=== PATIENT | male | born 1945 | race African-American/Black ===

== ENCOUNTER 2017-03-05 12:44 | Inpatient (IN) | payer MEDICARE, MEDICAID ==
[2017-03-05] VITALS (13 sets, daily range): BP systolic 125–163; BP diastolic 78–102; PULSE 100–116; RESP 16–28; TEMP 97.5–98.6; O2SAT 91–99
[~2017-03-05] VITALS: Ht 180.3 cm; Wt 80.3 kg
[~2017-03-05 12:44] MED LIST: ASPI81 PO; BRIM0.2S LEFT EYE; CALCCHW25 PO; EMTR1TAB2 PO; ERGO50000 PO; FURO10S PO; GLIP5 PO; LATA.005%O LEFT EYE; METF500 PO; METO25 PO; PROS5TAB2 PO; REME15TA PO; SIMV10 PO; SPIR25TA PO; TAMS0.4C4; VALA1TAB PO
--- NOTE | 2017-03-05 13:16 | PD ---
HPI Chief Complaint: Respiratory Symptoms Time Seen by Provider: 13:16 Travel History International Travel<30 days: No Contact w/Intl Traveler<30days: No Traveled to known affect area: No History of Present Illness HPI 71-year-old male with PMH of HTN, HLD, DM, HIV, COPD presents to the ED via EMS for evaluation of 1 week history of SOB, [place]. Patient denies fever, chills, cough, palpitations, nausea, vomiting, dysuria, lower extremity edema. He does not use oxygen at home. He states that he was seen by his PCP Dr. German this week and chest x-ray was ordered but he has not yet had it. PFSH Past Medical History Cancer: No Cardiovascular Problems: Yes (HTN) High Cholesterol: Yes Chest Pain: Yes Diabetes: Yes Patient Takes Glucophage: Yes Diminished Hearing: Yes Glaucoma: Yes Genitourinary: Yes (PROSTATE COMPLAINTS) Hepatitis: No Hiatal Hernia: No Hypertension: Yes Immune Disorder: Yes (HIV) Medical other: Yes (ARTHRITIS,BLIND OS,) Respiratory: Yes (COPD / ASTHMA) Thyroid Disease: No Influenza Vaccination: No Past Surgical History Abdominal Surgery: No Cardiac Surgery: No Ear Surgery: No Endocrine Surgery: No Eye Surgery: Yes (JAVIER.GLAUCOMA SURG.--LAST ONE LT. EYE / 2007) Genitourinary Surgery: No Gynecologic Surgery: No Neurologic Surgery: No Oral Surgery: No Pacemaker: No Thoracic Surgery: No Other Surgery: Yes (9 SCREWS IN RIGHT ANKLE) Social History Alcohol Use: No Tobacco Use: Yes Substance Use: No Allergies-Medications (Allergen,Severity, Reaction): Coded Allergies: No Known Allergies (Verified , 03/05/17) Reported Meds & Prescriptions Reported Meds & Active Scripts Active Reported Finasteride 5 Mg Tab 5 Mg PO DAILY Do not crush. Calcium 600+D (Calcium Carbonate-Cholecalciferol) 600-800 Mg-Unit Tab 1 Tab PO DAILY Tamsulosin (Tamsulosin HCl) 0.4 Mg Cap 0.8 Mg PO DAILY Take 30 minutes after the same meal every day Zocor (Simvastatin) 10 Mg Tab 10 Mg PO HS Metoprolol Tartrate 25 Mg Tab 12.5 Mg PO BID Glipizide-Metformin 2.5-500 Mg Tab 1 Tab PO BID Ecotrin Low Strength (Aspirin) 81 Mg Tabdr 81 Mg PO MOWEFR Take 1 tablet (81mg) daily on Tuesday,Tuesday and Tuesday Tramadol (Tramadol HCl) 50 Mg Tab 50 Mg PO BID Vitamin D3 (Cholecalciferol) 50,000 Unit Cap 50,000 Units PO EVERY OTHER WEEK Valacyclovir (Valacyclovir HCl) 1 Gm Tab 1 Gm PO DAILY Aldactone (Spironolactone) 25 Mg Tab 25 Mg PO DAILY Odefsey (Cmnobrzxyrqpj-Iidioxkacuq-Ohynjzlry Alafenam) 200-200-25 Mg Tab 1 Tab PO DAILY Furosemide 20 Mg Tab 20 Mg PO DAILY Review of Systems Except as stated in HPI: all other systems reviewed are Neg Physical Exam Narrative GENERAL: Well-nourished, well-developed pleasant black male, wearing 2L O2 by NC , in no acute distress. SKIN: Focused skin assessment warm/dry. HEAD: Normocephalic. EYES: No scleral icterus. No injection or drainage. NECK: Supple, trachea midline. No JVD or lymphadenopathy. CARDIOVASCULAR: Regular rate and rhythm without murmurs, gallops, or rubs. RESPIRATORY: Decreased breath sounds in all lung horton, R > L. Positive accessory muscle use. Speaking in short sentences. GASTROINTESTINAL: Abdomen soft, non-tender, nondistended. Active bowel sounds. MUSCULOSKELETAL: No cyanosis, or edema. Homans sign negative bilaterally. BACK: Nontender without obvious deformity. No CVA tenderness. Data Data Last Documented VS Vital Signs Date Time Temp Pulse Resp B/P Pulse Ox O2 Delivery O2 Flow Rate FiO2 03/05/17 15:41 107 26 138/94 93 Nasal Cannula 4 03/05/17 13:02 98.6 Orders Complete Blood Count With Diff (03/05/17 13:33) Comprehensive Metabolic Panel (03/05/17 13:33) B-Type Natriuretic Peptide (03/05/17 13:33) D-Dimer (03/05/17 13:33) Act Partial Throm Time (Ptt) (03/05/17 13:33) Prothrombin Time / Inr (Pt) (03/05/17 13:33) Magnesium (Mg) (03/05/17 13:33) Ckmb (Isoenzyme) Profile (03/05/17 13:33) Troponin I (03/05/17 13:33) Urinalysis - C+S If Indicated (03/05/17 13:33) Iv Access Insert/Monitor (03/05/17 13:33) Electrocardiogram (03/05/17 13:33) Ecg Monitoring (03/05/17 13:33) Oximetry (03/05/17 13:33) Oxygen Administration (03/05/17 13:33) Chest, Single Ap (03/05/17 13:33) Sodium Chloride 0.9% Flush (Ns Flush) (03/05/17 13:45) Sodium Chlorid 0.9% 500 Ml Inj (Ns 500 M (03/05/17 14:00) Ceftriaxone Inj (Rocephin Inj) (03/05/17 14:30) Azithromycin Inj (Zithromax Inj) (03/05/17 14:30) Blood Culture (03/05/17 14:37) Ct Pulmonary Angiogram (03/05/17 15:17) Admit Order (Ed Use Only) (03/05/17 15:49) Labs Laboratory Tests Test 03/05/17 03/05/17 13:40 14:38 White Blood Count 9.9 TH/MM3 Red Blood Count 5.58 MIL/MM3 Hemoglobin 13.6 GM/DL Hematocrit 43.6 % Mean Corpuscular Volume 78.1 FL Mean Corpuscular Hemoglobin 24.3 PG Mean Corpuscular Hemoglobin 31.1 % Concent Red Cell Distribution Width 16.7 % Platelet Count 339 TH/MM3 Mean Platelet Volume 9.6 FL Neutrophils (%) (Auto) 88.6 % Lymphocytes (%) (Auto) 5.5 % Monocytes (%) (Auto) 5.4 % Eosinophils (%) (Auto) 0.2 % Basophils (%) (Auto) 0.3 % Neutrophils # (Auto) 8.7 TH/MM3 Lymphocytes # (Auto) 0.5 TH/MM3 Monocytes # (Auto) 0.5 TH/MM3 Eosinophils # (Auto) 0.0 TH/MM3 Basophils # (Auto) 0.0 TH/MM3 CBC Comment DIFF FINAL Differential Comment Urine Color YELLOW Urine Turbidity CLEAR Urine pH 5.0 Urine Specific [place] 1.016 Urine Protein 30 mg/dL Urine Glucose (UA) NEG mg/dL Urine Ketones NEG mg/dL Urine Occult Blood TRACE Urine Nitrite NEG Urine Bilirubin NEG Urine Urobilinogen LESS THAN 2.0 MG/DL Urine Leukocyte Esterase NEG Urine RBC 1 /hpf Urine WBC 1 /hpf Urine Hyaline Casts 7 /lpf Urine Granular Casts 7 /lpf Microscopic Urinalysis Comment CULT NOT INDICATED B-Type Natriuretic Peptide 17 PG/ML Prothrombin Time 12.6 SEC Prothromb Time International 1.1 RATIO Ratio Activated Partial 25.2 SEC Thromboplast Time D-Dimer Quantitative (PE/DVT) 7.72 MG/L FEU Sodium Level 143 MEQ/L Potassium Level 4.6 MEQ/L Chloride Level 105 MEQ/L Carbon Dioxide Level 28.1 MEQ/L Anion Gap 10 MEQ/L Blood Urea Nitrogen 23 MG/DL Creatinine 1.11 MG/DL Estimat Glomerular Filtration 79 ML/MIN Rate Random Glucose 126 MG/DL Calcium Level 9.2 MG/DL Magnesium Level 2.0 MG/DL Total Bilirubin 0.7 MG/DL Aspartate Amino Transf 30 U/L (AST/SGOT) Alanine Aminotransferase 22 U/L (ALT/SGPT) Alkaline Phosphatase 118 U/L Total Creatine Kinase 81 U/L Troponin I LESS THAN 0.02 NG/ML Total Protein 7.9 GM/DL Albumin 2.7 GM/DL MDM Medical Decision Making Medical Screen Exam Complete: Yes Emergency Medical Condition: Yes Differential Diagnosis COPD exacerbation versus pneumonia versus CHF versus PE versus ACS versus other Narrative Course 71-year-old male with PMH of HTN, HLD, DM, HIV, COPD presents to the ED via EMS for evaluation of 1 week history of SOB, [place]. Patient denies fever, chills, cough, palpitations, nausea, vomiting, dysuria, lower extremity edema. He does not use oxygen at home. PCP Dr. Veras. Temp 98.6. Heart rate 112, respiratory rate 24-28, saturation 96% on 2 L NC. Physical exam reveals a pleasant plaque male, speaking in short sentences, using accessory muscles, on 3 L by nasal cannula. Breath sounds diminished in all lung horton, right greater than left. No edema in the bilateral lower legs. Patient was administered 500 mL's NS IV. CBC: WBC 9.9, 88.6% neutrophils. Hemoglobin 13.6. CMP: BUN 23, creatinine 1.11. Glucose 126. UA: No culture indicated INR: 1.1. D-dimer: 7.72. BNP:17 Cardiac enzymes: Negative 1 EKG: Rate 111, sinus tachycardia. NM 116, QRS 81, QTC 379. Normal axis. No ST changes. Reviewed by Dr. Marie CXR: Moderate right-sided pleural effusion and associated volume loss and airspace consolidation or radiology read. CTA: pending Blood cultures were obtained. Patient was administered IV Rocephin and azithromycin. PCP Dr. German. I spoke with Dr. Cabrales who agrees to accept the patient to the medical service. Please see medicine notes for disposition. Sepsis Criteria SIRS Criteria (2 or more): Heart rate over 90, RR > 20 or PaCO2 < 32 Sepsis Criteria (SIRS+source): Infect source susp/known Urmila De La Fuente March 05, 2017 13:16
[2017-03-05] MEDS ORDERED: SODIUM CHLORIDE 0.9% FLUSH 10 ML FLUSH IVF PRN (13:45)
[2017-03-05] MEDS ORDERED: SODIUM CHLORID 0.9% 500 ML INJ 500 ML IV ONE (14:00)
[2017-03-05] MEDS ORDERED: GLIP2.5T2 PO (14:06)
[2017-03-05] MEDS ORDERED: EMTR1TAB2 PO (14:06)
[2017-03-05] MEDS ORDERED: VALA1TAB PO (14:06)
[2017-03-05] MEDS ORDERED: TRAM50TA PO (14:06)
[2017-03-05] MEDS ORDERED: METO25TA3 PO (14:06)
[2017-03-05] MEDS ORDERED: CALC1TAB37 PO (14:06)
[2017-03-05] MEDS ORDERED: CHOL1CAP34 PO (14:06)
[2017-03-05] MEDS ORDERED: FURO20TA PO (14:06)
[2017-03-05] MEDS ORDERED: TAMS0.4C4 PO (14:06)
[2017-03-05] MEDS ORDERED: ASPI-147 PO (14:06)
[2017-03-05] MEDS ORDERED: SPIR25 PO (14:06)
[2017-03-05] MEDS ORDERED: ZOCO10TA PO (14:06)
[2017-03-05] MEDS ORDERED: FINA5TAB2 PO (14:06)
[2017-03-05 14:11] LABS: BLOOD, URINE TRACE (NEG); GLUCOSE,URINE NEG (NEG); GRANULAR CAST, URINE 7 /lpf; HYALINE CAST, URINE 7 /lpf (RARE); KETONE, URINE NEG (NEG); NITRITE,URINE NEG (NEG); URINE COLOR YELLOW (YELLW/STRAW)
[2017-03-05 14:12] LABS: COMMENT (UR) CULT NOT INDICATED; CULTURE IF INDICATED CULT NOT INDICATED
--- NOTE | 2017-03-05 14:13 | RADRPT ---
EXAM DATE/TIME: 03/05/2017 14:10 [facility] COMPARISON: No previous studies available for comparison. INDICATIONS : Short of breath. MEDICAL HISTORY : None. SURGICAL HISTORY : None. ENCOUNTER: Initial ACUITY: 1 day PAIN SCORE: 7/10 LOCATION: Bilateral chest FINDINGS: Portable AP view of the chest demonstrates a normal-sized cardiac silhouette. There is a moderate rig ht basilar pleural-parenchymal opacity. No pneumothorax is visualized. Bones and soft tissues demonst rate no acute finding. CONCLUSION: Moderate size right pleural effusion with associated volume loss and/or airspace consolidation. Julio Mcknight MD on March 05, 2017 at 14:11 Board Certified Radiologist. This report was verified electronically.
[2017-03-05 14:15] LABS: AUTOMATED NEUTROPHIL # 8.7 TH/MM3 (1.8-7.7); BASOPHIL % 0.3 % (0.0-2.0); EOSINOPHIL % 0.2 % (0.0-4.0); HEMATOCRIT 43.6 % (39.0-51.0); HEMO FLAGS DIFF FINAL; LYMPH % 5.5 % (9.0-44.0); LYMPHOCYTE # 0.5 TH/MM3 (1.0-4.8); MEAN CELL VOLUME 78.1 FL (80.0-100.0); MEAN CORPUSCULAR HEMOGLOBIN 24.3 PG (27.0-34.0); MEAN CORPUSCULAR HGB CONC 31.1 % (32.0-36.0); MONO % 5.4 % (0.0-8.0); NEUT % 88.6 % (16.0-70.0); PLATELET COUNT 339 TH/MM3 (150-450); RED BLOOD COUNT 5.58 MIL/MM3 (4.50-5.90); RED CELL DISTRIBUTION WIDTH 16.7 % (11.6-17.2); WHITE BLOOD COUNT 9.9 TH/MM3 (4.0-11.0)
[2017-03-05] MEDS ORDERED: AZITHROMYCIN INJ 500 MG in SODIUM CHLOR 0.9% 250 ML INJ 250 ML IV ONE (14:30)
[2017-03-05] MEDS ORDERED: cefTRIAXone INJ 1,000 MG in SODIUM CHLORIDE 0.9% INJ 100 ML IV ONE (14:30)
[2017-03-05 15:09] LABS: INTERNATIONAL NORMALIZED RATIO 1.1 RATIO; PROTHROMBIN TIME - PATIENT 12.6 SEC (9.8-11.6)
[2017-03-05 15:10] LABS: APTT (PATIENT) 25.2 SEC (24.3-30.1)
[2017-03-05 15:58] LABS: ALKALINE PHOSPHATASE 118 U/L (45-117); ALT (GPT) 22 U/L (12-78); ANION GAP 10 MEQ/L (5-15); AST (GOT) 30 U/L (15-37); BICARBONATE 28.1 MEQ/L (21.0-32.0); BLOOD UREA NITROGEN 23 MG/DL (7-18); CHLORIDE 105 MEQ/L (98-107); GLOMERULAR FILTRATION RATE 79 ML/MIN (>89); POTASSIUM 4.6 MEQ/L (3.5-5.1); SODIUM (NA) 143 MEQ/L (136-145); TOTAL BILIRUBIN ADULT 0.7 MG/DL (0.2-1.0)
[2017-03-05 16:00] LABS: CREATINE KINASE 81 U/L (39-308)
--- NOTE | 2017-03-05 16:03 | HHI.HP ---
[facility] Service [facility] Primary Care Physician Narendra German MD Admission Diagnosis pneumonia, sepsis Diagnoses: Chief Complaint: Shortness of breath Travel History International Travel<30 Days: No Contact w/Intl Traveler <30 Da: No Traveled to Known Affected Are: No History of Present Illness This is a pleasant 71 y/o male with Hypertension, Hyperlipidemia, DM II, HIV, COPD, who came to ER brought in by EMS for evaluation after one week history of SOB, [place]. Patient denies fever, chills, cough, palpitations , nausea, vomiting, dysuria, lower extremity edema. He does not use oxygen at home. He states that he was seen by his PCP Dr. German this week and chest x-ray was ordered but he has not yet had it. Seen in Emergency room, he has mild to moderate respiratory insufficiency, he is legally blind, awaiting for CTA he has moderate to severe compromise secondary to Right Pleural Effusion and may need Thoracentesis. stable eating without difficulty. he has Pulmonary Hypertension. no signs of CHF will get also a BNP. Review of Systems Respiratory: COMPLAINS OF: Shortness of breath Past Family Social History Past Medical History Hypertension Hyperlipidemia DM II Glaucoma HIV OA COPD Pulmonary hypertension BPH Legally Blind Past Surgical History Bilateral glaucoma surgery last one left eye 2007 Right Ankle surgery Reported Medications Reported Meds & Active Scripts Active Reported Finasteride 5 Mg Tab 5 Mg PO DAILY Do not crush. Calcium 600+D (Calcium Carbonate-Cholecalciferol) 600-800 Mg-Unit Tab 1 Tab PO DAILY Tamsulosin (Tamsulosin HCl) 0.4 Mg Cap 0.8 Mg PO DAILY Take 30 minutes after the same meal every day Zocor (Simvastatin) 10 Mg Tab 10 Mg PO HS Metoprolol Tartrate 25 Mg Tab 12.5 Mg PO BID Glipizide-Metformin 2.5-500 Mg Tab 1 Tab PO BID Ecotrin Low Strength (Aspirin) 81 Mg Tabdr 81 Mg PO MOWEFR Take 1 tablet (81mg) daily on Tuesday,Tuesday and Tuesday Tramadol (Tramadol HCl) 50 Mg Tab 50 Mg PO BID Vitamin D3 (Cholecalciferol) 50,000 Unit Cap 50,000 Units PO EVERY OTHER WEEK Valacyclovir (Valacyclovir HCl) 1 Gm Tab 1 Gm PO DAILY Aldactone (Spironolactone) 25 Mg Tab 25 Mg PO DAILY Odefsey (Wrzupkzrpnsth-Kzwdnidkllp-Gacrchhjp Alafenam) 200-200-25 Mg Tab 1 Tab PO DAILY Furosemide 20 Mg Tab 20 Mg PO DAILY Allergies: Coded Allergies: No Known Allergies (Verified , 03/05/17) Active Ordered Medications Current Medications Medications (Trade) Dose Ordered Sig/Keena Route Start Time Stop Time Status Last Admin (NS Flush) 2 ml UNSCH PRN IVF 03/05/17 13:45 (Ecotrin Ec) 81 mg MOWEFR PO 03/07/17 16:15 (Proscar) 5 mg DAILY PO 03/06/17 09:00 (Lasix) 20 mg DAILY PO 03/06/17 09:00 (Lopressor) 12.5 mg BID PO 03/05/17 21:00 (Aldactone) 25 mg DAILY PO 03/06/17 09:00 (Flomax) 0.8 mg DAILY PO 03/06/17 09:00 (Ultram) 50 mg BID PO 03/05/17 21:00 (Valtrex) 1,000 mg DAILY PO 03/06/17 09:00 (Pravachol) 20 mg HS PO 03/05/17 21:00 (NS Flush) 2 ml UNSCH PRN IV FLUSH 03/05/17 16:15 (NS Flush) 2 ml BID IV FLUSH 03/05/17 21:00 (Tylenol) 650 mg Q4H PRN PO 03/05/17 16:15 (Zofran Inj) 4 mg Q6H PRN IVP 03/05/17 16:15 (Narcan Inj) 0.4 mg UNSCH PRN IV 03/05/17 16:15 (Brit-Colace) 1 tab BID PO 03/05/17 21:00 (Milk Of Magnesia Liq) 30 ml Q12H PRN PO 03/05/17 16:15 (Senokot) 17.2 mg Q12H PRN PO 03/05/17 16:15 (Dulcolax Supp) 10 mg DAILY PRN RECTAL 03/05/17 16:15 (Lactulose Liq) 30 ml DAILY PRN PO 03/05/17 16:15 Guaifenesin 600 mg 600 mg BID PO 03/05/17 21:00 Ceftriaxone Sodium 1000 mg/ Sodium Chloride 100 ml @ 200 mls/hr Q24H IV 03/06/17 15:00 (Zithromax Inj/ NS 250 ml Inj) 250 ml @ 250 mls/hr Q24H IV 03/06/17 15:00 Patient Own Medication PT OWN MED: ODEFSEY(EMTRICITABINE 200MG,RILPIVIRINE... DAILY PO 03/06/17 09:00 Future Hold Family History Father and Mother with DM II Social History denies any toxic habit. Physical Exam Vital Signs Vital Signs Date Time Temp Pulse Resp B/P Pulse Ox O2 Delivery O2 Flow Rate FiO2 03/05/17 15:41 107 26 138/94 93 Nasal Cannula 4 03/05/17 14:08 109 24 127/80 95 Nasal Cannula 2.5 03/05/17 13:05 112 28 125/78 96 Nasal Cannula 2 03/05/17 13:02 98.6 112 16 125/78 94 Physical Exam GENERAL: Well-nourished, well-developed pleasant black male, wearing 2L O2 by NC , in no acute distress. SKIN: Focused skin assessment warm/dry. HEAD: Normocephalic. EYES: No scleral icterus. No injection or drainage. NECK: Supple, trachea midline. No JVD or lymphadenopathy. CARDIOVASCULAR: Regular rate and rhythm without murmurs, gallops, or rubs. RESPIRATORY: Decreased breath sounds in all lung horton, R > L. Positive accessory muscle use. Speaking in short sentences. GASTROINTESTINAL: Abdomen soft, non-tender, nondistended. Active bowel sounds. MUSCULOSKELETAL: No cyanosis, or edema. Homans sign negative bilaterally. BACK: Nontender without obvious deformity. No CVA tenderness. Laboratory Laboratory Tests Test 03/05/17 03/05/17 13:40 14:38 White Blood Count 9.9 Red Blood Count 5.58 Hemoglobin 13.6 Hematocrit 43.6 Mean Corpuscular Volume 78.1 Mean Corpuscular Hemoglobin 24.3 Mean Corpuscular Hemoglobin 31.1 Concent Red Cell Distribution Width 16.7 Platelet Count 339 Mean Platelet Volume 9.6 Neutrophils (%) (Auto) 88.6 Lymphocytes (%) (Auto) 5.5 Monocytes (%) (Auto) 5.4 Eosinophils (%) (Auto) 0.2 Basophils (%) (Auto) 0.3 Neutrophils # (Auto) 8.7 Lymphocytes # (Auto) 0.5 Monocytes # (Auto) 0.5 Eosinophils # (Auto) 0.0 Basophils # (Auto) 0.0 CBC Comment DIFF FINAL Differential Comment Urine Color YELLOW Urine Turbidity CLEAR Urine pH 5.0 Urine Specific [place] 1.016 Urine Protein 30 Urine Glucose (UA) NEG Urine Ketones NEG Urine Occult Blood TRACE Urine Nitrite NEG Urine Bilirubin NEG Urine Urobilinogen LESS THAN 2.0 Urine Leukocyte Esterase NEG Urine RBC 1 Urine WBC 1 Urine Hyaline Casts 7 Urine Granular Casts 7 Microscopic Urinalysis Comment CULT NOT INDICATED B-Type Natriuretic Peptide 17 Prothrombin Time 12.6 Prothromb Time International 1.1 Ratio Activated Partial 25.2 Thromboplast Time D-Dimer Quantitative (PE/DVT) 7.72 Result Diagram: 03/05/17 1340 Imaging Last Impressions Chest X-Ray 03/05/17 1333 Signed Impressions: Service Date/Time: Sunday, March 05, 2017 14:10 - CONCLUSION: Moderate size right pleural effusion with associated volume loss and/or airspace consolidation. Julio Mcknight MD Assessment and Plan Assessment and Plan 1. Respiratory Insufficiency secondary to COPD, Pneumonia and Pleural effusion. asked for Ultrasound guided Thoracentesis of the right Lung. 2. Sepsis/Pneumonia Ceftriaxone and Azithromycin, legionella antigen, Pneumococcal antigen follow blood culture and Sputum culture. 3. HIV by history continue Home medicines 4. Hypertension continue Home medicines. 5. DM II on hold home medicines started on sliding scale. 6. Hyperlipidemia by history 7. elevated D Dimers CTA performed awaiting for result 8. BPH continue Home medicines. DVT prophylaxis with SCDs he will have Thoracentesis, then may start anticoagulation unless positive CTA awaiting for result. Code Status Full Code. Discussed Condition With Patient and ER Physician Certification 2 Midnight Certification Type: Admission for Inpatient Services Order for Inpatient Services The services are ordered in accordance with Medicare regulations or non- Medicare payer requirements, as applicable. In the case of services not specified as inpatient-only, they are appropriately provided as inpatient services in accordance with the 2-midnight benchmark. Estimated LOS (days): 3 days is the estimated time the patient will need to remain in the hospital, assuming treatment plan goals are met and no additional complications. Post-Hospital Plan: Not yet determined Adrian Bailey MD March 05, 2017 16:03
[2017-03-05] MEDS ORDERED: ACETAMINOPHEN 325 MG TAB PO PRN (16:15)
[2017-03-05] MEDS ORDERED: BISACODYL 10 MG SUPP RECTAL PRN (16:15)
[2017-03-05] MEDS ORDERED: ONDANSETRON HCL 4 MG/2 ML VIAL IVP PRN (16:15)
[2017-03-05] MEDS ORDERED: MAGNESIUM HYDROXIDE SUSP 30 ML CUP PO PRN (16:15)
[2017-03-05] MEDS ORDERED: NALOXONE HCL 0.4 MG/ML AMP IV PRN (16:15)
[2017-03-05] MEDS ORDERED: SODIUM CHLORIDE 0.9% FLUSH 10 ML FLUSH IV FLUSH PRN (16:15)
[2017-03-05] MEDS ORDERED: LACTULOSE SYRUP 20 GM/30 ML CUP PO PRN (16:15)
[2017-03-05] MEDS ORDERED: IOHEXOL 350 MG/ML 10 ML VIAL (for RAD DIAG) IV ONE (16:44)
--- NOTE | 2017-03-05 17:19 | RADRPT ---
EXAM DATE/TIME: 03/05/2017 16:25 [facility] COMPARISON: No previous studies available for comparison. INDICATIONS : Right side chest pain and shortness of breath. IV CONTRAST: 70 cc Omnipaque 350 (iohexol) IV RADIATION DOSE: 14.75 CTDIvol (mGy) MEDICAL HISTORY : Cardiovascular disease. Chronic obstructive pulmonary disease. HIV. Hypertension, Asthma. SURGICAL HISTORY : None. ENCOUNTER: Initial ACUITY: 3 days PAIN SCALE: 6/10 LOCATION: Right upper chest TECHNIQUE: Volumetric scanning of the chest was performed using a pulmonary embolism protocol MIP images were re constructed. Using automated exposure control and adjustment of the mA and/or kV according to patien t size, radiation dose was kept as low as reasonably achievable to obtain optimal diagnostic quality images. FINDINGS: Extensive emphysematous changes are seen in both lungs. There are consolidative changes and pleural thickening on the right with a moderate right pleural effusion. The left lung is clear. There is a destructive process involving the right 6th rib in the anterior axillary line suggesting all this is due to a neoplastic process. Gynecomastia is evident. There is no evidence for a central pulmonary emboli. CONCLUSION: Abnormal right lung. Moderate effusion and consolidation is present with pleural thickening. Neopla stic process is suspected. The right rib could be biopsied percutaneously for diagnosis. Josue Gregg MD FACR on March 05, 2017 at 17:01 Board Certified Radiologist. This report was verified electronically.
[2017-03-05] MEDS: RESP: ALBUTEROL 2.5 MG/IPRATROPIUM 0.5 MG NEB (SCH) NEB ×2 (19:28→23:15)
[2017-03-05] MEDS: METOPROLOL TARTRATE 25 MG TAB PO SCH (20:13)
[2017-03-05] MEDS: PRAVASTATIN SOD 20 MG TAB PO SCH (20:13)
[2017-03-05] MEDS: guaiFENesin E.R. 600 MG TAB PO SCH (20:14)
[2017-03-05] MEDS: traMADol HCL 50 MG TAB PO SCH (20:18)
[2017-03-05] MEDS ORDERED: RESP: ALBUTEROL 2.5 MG/IPRATROPIUM 0.5 MG NEB (PRN) NEB (20:30)
[2017-03-05] MEDS ORDERED: RESP: IPRATROPIUM 0.5 MG/2.5 ML NEB NEB PRN (20:30)
[2017-03-05] MEDS ORDERED: FUROSEMIDE 40 MG/4 ML VIAL ONE (20:47)
[2017-03-05 20:51] LABS: BLOOD GAS BASE EXCESS 4.4 mmol/L (-2-2); BLOOD GAS CARBOXYHEMOGLOBIN 1.8 % (0-4); BLOOD GAS HCO3 29 mmol/L (22-26); BLOOD GAS METHEMOGLOBIN 0.7 % (0-2); BLOOD GAS O2 HGB SATURATION 95 % (90-100); BLOOD GAS OXYGEN CONTENT 17.1 Vol % (12.0-20.0); BLOOD GAS PCO2 53 mmHg (38-42); BLOOD GAS PO2 112 mmHg (61-120); BLOOD GAS TOTAL HGB 12.6 G/DL (12.0-16.0); TEMP CORR TO 98.6
[2017-03-05 20:52] LABS: CRITICAL VALUE YES; DRAW SITE RT RADIAL; LITER FLOW 15 L/M; NUMBER OF ARTERIAL PUNCTURES 1; OXYGEN DEVICE NON REBREATHER; STAT YES; ULNAR PULSE PRESENT
[2017-03-05] MEDS ORDERED: FUROSEMIDE 40 MG TAB PO ONE (21:00)
[2017-03-05] MEDS: DOCUSATE SODIUM 50 MG/SENNA 8.6 MG TAB PO SCH (21:00)
[2017-03-05] MEDS: SODIUM CHLORIDE 0.9% FLUSH 10 ML FLUSH IV FLUSH SCH (21:00)
[2017-03-05] MEDS: INSULIN NovoLIN REGULAR SUPPLEMENTAL SCALE SQ SCH (21:00)
--- NOTE | 2017-03-05 21:14 | HHI.FPPN ---
Subjective Remarks 71 year old male with a history of hypertension, hyperlipidemia, diabetes type II, HIV, COPD, and questionable CHF. He was brought in earlier today by EMS for a one week history of shortness of breath. He was found to have significant right pleural effusion, and was planning on thoracentesis tomorrow. Called for HaliCat for shortness of breath. Nurse reports that patient had O2 saturation to the low 80's. He was placed on Venturi Mask with at 50% O2 with minimal improvement. He was then placed on a non-rebreather mask and given a DuoNeb treatment. By the time of our arrival, he is on a non-rebreather mask with 99% O2 saturation. He reports "feeling great" at the time. He reports no chest pain. He has no calf tenderness or swelling. He had a CTA earlier today that showed no pulmonary embolism. Objective Vitals Vital Signs Date Time Temp Pulse Resp B/P Pulse Ox O2 Delivery O2 Flow Rate FiO2 03/05/17 20:35 98 Non-Rebreather 12.00 03/05/17 20:31 Venturi Mask 50 03/05/17 19:30 91 Nasal Cannula 4.00 03/05/17 18:13 97.5 116 22 163/96 91 03/05/17 16:39 109 24 147/92 96 Nasal Cannula 3 03/05/17 15:41 107 26 138/94 93 Nasal Cannula 4 03/05/17 14:08 109 24 127/80 95 Nasal Cannula 2.5 03/05/17 13:05 112 28 125/78 96 Nasal Cannula 2 03/05/17 13:02 98.6 112 16 125/78 94 Result Diagram: 03/05/17 1340 03/05/17 1438 Imaging General: Patient is on non-rebreather mask, minimal use of intercostal muscles to breath, speaking in complete sentences, not in acute distress, saying he feels "good" HEENT: Normocephalic, non-traumatic CV: RRR, no murmur, no rubs, no gallops Lungs: Expiratory wheezing on left side. Right side has significantly decreased breath sounds up to the right apex. The right side is dull to percussion. Mild intercostal use for breathing. Abdomen: Soft, nontender, normal bowel sounds Ext: No calf tenderness or swelling, negative Sukhdev's sign A/P Assessment and Plan 71 year old male with COPD, possible CHF, and significant right pleural effusion. HaliCat called for shortness of breath and desaturation. - Stat ABG reviewed, chronic CO2 retention that is metabolically compensated. - DuoNeb treatment - CTA reviewed from earlier today, negative for pulmonary embolism - CXR reviewed from earlier, significant right pleural effusion up to apex - CXR ordered stat, repeat CXR showing some interval improvement in the right pleural effusion. - Lasix 40 mg given now for pulmonary congestion. - Contacted primary provider, Tess Rushing for [facility] - Will transfer to the ICU for closer monitoring. - Discuss with despatching and receiving clerk. Seen and discussed with Yemi Bowman MD R2 March 05, 2017 21:14
--- NOTE | 2017-03-05 21:20 | RADRPT ---
EXAM DATE/TIME: 03/05/2017 20:49 [facility] COMPARISON: CHEST SINGLE AP, March 05, 2017, 14:10. INDICATIONS : Short of breath. MEDICAL HISTORY : Hypercholesterolemia. Hypertension. Glaucoma. Headaches. Myocardial infarction. Shortness of breath. Prostate problems. Arthritis. Urinary problems. Blind. SURGICAL HISTORY : Broken ankle with internal fixation. ENCOUNTER: Subsequent ACUITY: 1 day PAIN SCORE: 6/10 LOCATION: Bilateral chest FINDINGS: There is mild to moderate interstitial edema present. There are consolidative changes and pleural ef fusion in the right lung, stable in the interval. There is no pneumothorax. CONCLUSION: 1. Increasing interstitial edema. 2. Stable consolidative changes and fluid in the right lung. Josue Gregg MD FACR on March 05, 2017 at 21:14 Board Certified Radiologist. This report was verified electronically.
[2017-03-05 22:10] LABS: CREATINE KINASE 202 U/L (39-308)
[2017-03-05] MEDS ORDERED: CHLORHEXIDINE GLUCONATE 2 % 1 PACK (2 CLOTHS)(extra cloths) TOPICAL PRN (23:00)
[2017-03-05] MEDS ORDERED: PIPERACIL-TAZO 4.5 GM PREMIX 100 ML IV SCH (23:00)
--- NOTE | 2017-03-05 23:05 | PD.CONS ---
HPI Service Critical Care Medicine Consult Requested By Tess Graham Reason for Consult Respiratory distress Primary Care Physician Narendra German MD History of Present Illness 71-year-old very pleasant male with past history of HIV on HAART, hypertension, hyperlipidemia, diabetes, COPD (not on home O2) , chronic systolic heart failure with ejection fraction 45-50% who presented to [facility] emergency department on 03/05 with shortness of breath. He had CT pulmonary angiogram that was negative for PE but demonstrated moderate right effusion, pleural thickening with distractive process of right sixth rib. This appears to be a malignant process with post obstructive pneumonia. Yolie Last was called due to acute onset of shortness of breath with sats in the low 80s on 4 L nasal cannula. He was placed on Ventimask and subsequently on nonrebreather. He denies chest pain. He was given Lasix 40 mg IV during helical had and has diuresed 400 ML's. He states that he feels improved. He is breathing comfortably. Past Family Social History Allergies: Coded Allergies: No Known Allergies (Verified , 03/05/17) Past Medical History His physician is Narendra German HIV diagnosed 10-11 years ago on HAART Hypertension Hyperlipidemia Chronic systolic heart failure Diabetes BPH COPD patient states he is not on home O2 Patient is on valacyclovir as an outpatient but he is uncertain why Past Surgical History ORIF right ankle Reported Medications Finasteride 5 mg by mouth daily Tamsulosin 0.4 mg po daily Iegwummaxbvkj-Nbkmhrwvzgu-Pmkkevuxo Alafenam 200 1 tab po daily Metoprolol 12.5 mg by mouth twice a day Zocor 10 mg by mouth daily at bedtime Lasix 20 mg by mouth daily Spironolactone 25 mg by mouth daily Aspirin 81 mg by mouth Tuesday valacyclovir 1 g by mouth daily Tramadol 50 mg by mouth twice a day Calcium carbonate 1 tab by mouth daily Glipizide/metformin 2.5/500 one by mouth twice a day Cholecalciferol 50,000 units by mouth every other week Family History Father at age 87 he had diabetes Mother had diabetes. Social History States he lives with his 17-year-old son who is not helpful in helping to care for him "because he is always out smoking marijuana and running around" He has a [id number] history of smoking but states he quit "years ago" no alcohol use Physical Exam Vital Signs Vital Signs Date Time Temp Pulse Resp B/P Pulse Ox O2 Delivery O2 Flow Rate FiO2 03/05/17 21:42 98.3 105 20 158/91 97 03/05/17 20:35 98 Non-Rebreather 12.00 03/05/17 20:31 Venturi Mask 50 03/05/17 20:20 115 24 154/102 95 03/05/17 20:00 97.5 113 20 129/91 92 03/05/17 19:30 91 Nasal Cannula 4.00 03/05/17 18:13 97.5 116 22 163/96 91 03/05/17 16:39 109 24 147/92 96 Nasal Cannula 3 03/05/17 15:41 107 26 138/94 93 Nasal Cannula 4 03/05/17 14:08 109 24 127/80 95 Nasal Cannula 2.5 03/05/17 13:05 112 28 125/78 96 Nasal Cannula 2 03/05/17 13:02 98.6 112 16 125/78 94 Physical Exam GENERAL: Very pleasant male who is sitting [place] [facility] [place] nonrebreather. Mildly tachypneic but in no distress, very talkative. SKIN: Warm and dry, well perfused. HEAD: Atraumatic. Normocephalic. EYES: Right pupil 4 mm round and reactive, left pupil 3 mm round and reactive with cataract.. No scleral icterus. No injection or drainage. ENT: No nasal bleeding or discharge. Nonrebreather mask in place. NECK: Trachea midline. No JVD. CARDIOVASCULAR: Regular rate and rhythm. No murmurs rubs or gallops appreciated. RESPIRATORY: Tachypneic but overall appears comfortable without accessory muscle use. Diminished throughout right lung field with some rhonchi heard posteriorly right base. No wheezes or Rales. GASTROINTESTINAL: Abdomen very protuberant (patient states his baseline) but soft, nontender, nondistended. Bowel sounds very active. : Patient is holding his own urinal and voiding. MUSCULOSKELETAL: Extremities without clubbing, cyanosis, or edema. No obvious deformities. No calf tenderness. NEUROLOGICAL: Awake and alert, oriented x4 including president. No obvious cranial nerve deficits aside from pupils as per above. Strength 5 out of 5 in all extremity sensation intact. Laboratory Laboratory Tests Test 5/2703/05/17 03/05/17 03/05/17 13:40 14:38 20:47 21:11 White Blood Count 9.9 Red Blood Count 5.58 Hemoglobin 13.6 Hematocrit 43.6 Mean Corpuscular Volume 78.1 Mean Corpuscular Hemoglobin 24.3 Mean Corpuscular Hemoglobin 31.1 Concent Red Cell Distribution Width 16.7 Platelet Count 339 Mean Platelet Volume 9.6 Neutrophils (%) (Auto) 88.6 Lymphocytes (%) (Auto) 5.5 Monocytes (%) (Auto) 5.4 Eosinophils (%) (Auto) 0.2 Basophils (%) (Auto) 0.3 Neutrophils # (Auto) 8.7 Lymphocytes # (Auto) 0.5 Monocytes # (Auto) 0.5 Eosinophils # (Auto) 0.0 Basophils # (Auto) 0.0 CBC Comment DIFF FINAL Differential Comment Urine Color YELLOW Urine Turbidity CLEAR Urine pH 5.0 Urine Specific [place] 1.016 Urine Protein 30 Urine Glucose (UA) NEG Urine Ketones NEG Urine Occult Blood TRACE Urine Nitrite NEG Urine Bilirubin NEG Urine Urobilinogen LESS THAN 2.0 Urine Leukocyte Esterase NEG Urine RBC 1 Urine WBC 1 Urine Hyaline Casts 7 Urine Granular Casts 7 Microscopic Urinalysis Comment CULT NOT INDICATED B-Type Natriuretic Peptide 17 Prothrombin Time 12.6 Prothromb Time International 1.1 Ratio Activated Partial 25.2 Thromboplast Time D-Dimer Quantitative (PE/DVT) 7.72 Sodium Level 143 Potassium Level 4.6 Chloride Level 105 Carbon Dioxide Level 28.1 Anion Gap 10 Blood Urea Nitrogen 23 Creatinine 1.11 Estimat Glomerular Filtration 79 Rate Random Glucose 126 Calcium Level 9.2 Magnesium Level 2.0 Total Bilirubin 0.7 Aspartate Amino Transf 30 (AST/SGOT) Alanine Aminotransferase 22 (ALT/SGPT) Alkaline Phosphatase 118 Total Creatine Kinase 81 202 Troponin I LESS THAN 0.02 LESS THAN 0.02 Total Protein 7.9 Albumin 2.7 Blood Gas Puncture Site RT RADIAL Blood Gas Patient Temperature 98.6 Blood Gas HCO3 29 Blood Gas Base Excess 4.4 Blood Gas Oxygen Saturation 95 Arterial Blood pH 7.37 Arterial Blood Partial 53 Pressure CO2 Arterial Blood Partial 112 Pressure O2 Arterial Blood Oxygen Content 17.1 Arterial Blood 1.8 Carboxyhemoglobin Arterial Blood Methemoglobin 0.7 Blood Gas Hemoglobin 12.6 Oxygen Delivery Device NON REBREATHER Blood Gas Liter Flow 15 Date/Time Procedure Status Source Growth 03/05/17 19:00 Aerobic Blood Culture Received Blood Peripheral Pending 03/05/17 19:00 Anaerobic Blood Culture Received Blood Peripheral Pending 03/05/17 13:40 Urine Culture Received Urine Clean Catch Pending 03/05/17 13:40 Legionella Antigen Received Urine Clean Catch Pending 03/05/17 13:40 Streptococcus pneumoniae Antigen (M Received Urine Clean Catch Pending Result Diagram: 03/05/17 1340 03/05/17 1438 Assessment and Plan Assessment and Plan NEURO: Legally blind Continue Ultram 50 mg by mouth twice a day RESP: Acute hypoxia COPD Postobstructive pneumonia Right pleural effusion 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 Albuterol every 2 hours as needed. Has received diuretic with Lasix 40 mg IV and is diuresing. Adjust antibiotics as per below. Mucinex 600 mg by mouth twice a day Weaning from nonrebreather. Plan for right pigtail catheter placement and send pleural fluid studies including cytology. Consult pulmonology. Radiology feels rib lesion would be amenable to percutaneous biopsy which could be pursued when respiratory status optimized. CV: Hypertension Hyperlipidemia Chronic systolic heart failure (EF 45-50% on echo 04/24/16) Monitor hemodynamics Continue home meds of metoprolol 12.5 mg by mouth twice a day, Lasix 20 mg by mouth daily, Spironolactone 25 mg by mouth daily, aspirin 81 mg Tuesday/Tuesday /Tuesday, pravastatin 20 mg by mouth daily at bedtime. GI: 1800 ADA FEN/RENAL: BPH Patient is voiding Continue finasteride 5 mg by mouth daily Continue Flomax 0.8 mg by mouth daily ID: HIV Postobstructive pneumonia Patient continued on his own home HIV medications on admission (nonformulary) Discontinue Rocephin and azithromycin. Cover with cefepime, Flagyl, Levaquin for postobstructive pneumonia. Blood culture pending. Urine Legionella and pneumococcal antigen negative. Send sputum culture if able to obtain specimen. Plan to culture pleural fluid were obtained. UA unremarkable for evidence of infection. HEME: Monitor CBC ENDO: Diabetes mellitus Medium dose insulin sliding scale ac/hs PROPH: SCDs for DVT prophylaxis. Pharmacologic DVT prophylaxis can be added following chest tube placement. Protonix 40 mg by mouth daily for stress ulcer prophylaxis. ACCESS: Peripheral IV providing adequate access at this time. Level III consult Tiffany Finnegan MD March 05, 2017 23:04
[2017-03-05] MEDS: metroNIDAZOLE 500 MG TAB PO SCH (23:42)
[2017-03-05] MEDS: CEFEPIME INJ 2,000 MG in SODIUM CHLORIDE 0.9% INJ 100 ML IV SCH (23:42)
[2017-03-06] VITALS (20 sets, daily range): BP systolic 100–141; BP diastolic 51–95; PULSE 89–125; RESP 11–30; TEMP 98.4–99.6; O2SAT 83–98
[2017-03-06] MEDS: RESP: ALBUTEROL 2.5 MG/IPRATROPIUM 0.5 MG NEB (SCH) NEB ×6 (03:54→23:25)
[2017-03-06] MEDS: CHLORHEXIDINE GLUCONATE 2 % 1 PACK (2 CLOTHS)(taper/protocol) TOPICAL SCH (04:00)
[2017-03-06 04:38] LABS: AUTOMATED NEUTROPHIL # 8.4 TH/MM3 (1.8-7.7); BASOPHIL % 0.4 % (0.0-2.0); EOSINOPHIL % 0.2 % (0.0-4.0); HEMATOCRIT 38.2 % (39.0-51.0); HEMO FLAGS DIFF FINAL; LYMPH % 9.1 % (9.0-44.0); LYMPHOCYTE # 0.9 TH/MM3 (1.0-4.8); MEAN CELL VOLUME 78.1 FL (80.0-100.0); MEAN CORPUSCULAR HEMOGLOBIN 23.8 PG (27.0-34.0); MEAN CORPUSCULAR HGB CONC 30.5 % (32.0-36.0); MONO % 9.5 % (0.0-8.0); NEUT % 80.8 % (16.0-70.0); PLATELET COUNT 280 TH/MM3 (150-450); RED CELL DISTRIBUTION WIDTH 16.2 % (11.6-17.2); WHITE BLOOD COUNT 10.4 TH/MM3 (4.0-11.0)
[2017-03-06 04:50] LABS: INTERNATIONAL NORMALIZED RATIO 1.2 RATIO; PROTHROMBIN TIME - PATIENT 12.8 SEC (9.8-11.6)
[2017-03-06 05:05] LABS: ANION GAP 8 MEQ/L (5-15); BICARBONATE 34.1 MEQ/L (21.0-32.0); BLOOD UREA NITROGEN 24 MG/DL (7-18); CHLORIDE 101 MEQ/L (98-107); CREATINE KINASE 141 U/L (39-308); FREE T4 1.49 NG/DL (0.76-1.46); GLOMERULAR FILTRATION RATE 91 ML/MIN (>89); HDL CHOLESTEROL 41.3 MG/DL (40.0-60.0); LDL CHOLESTEROL 42 MG/DL (0-99); POTASSIUM 4.5 MEQ/L (3.5-5.1); SODIUM (NA) 143 MEQ/L (136-145)
[2017-03-06] MEDS ORDERED: ACETAMINOPHEN 325 MG TAB PO ONE (05:15)
[2017-03-06] MEDS: metroNIDAZOLE 500 MG TAB PO SCH ×3 (05:45→21:51)
[2017-03-06] MEDS: CEFEPIME INJ 2,000 MG in SODIUM CHLORIDE 0.9% INJ 100 ML IV SCH ×3 (05:46→21:52)
[2017-03-06] MEDS: INSULIN NovoLIN REGULAR SUPPLEMENTAL SCALE SQ SCH ×4 (05:46→21:00)
[2017-03-06] MEDS: LEVOFLOXACIN 750 MG TAB PO SCH (08:11)
[2017-03-06] MEDS: guaiFENesin E.R. 600 MG TAB PO SCH ×2 (08:11→21:00)
[2017-03-06] MEDS: METOPROLOL TARTRATE 25 MG TAB PO SCH ×2 (08:11→21:00)
[2017-03-06] MEDS: traMADol HCL 50 MG TAB PO SCH ×2 (08:11→21:18)
[2017-03-06] MEDS: FUROSEMIDE 20 MG TAB PO SCH (08:11)
[2017-03-06] MEDS: FINASTERIDE 5 MG TAB PO SCH (08:12)
[2017-03-06] MEDS: TAMSULOSIN HCL 0.4 MG CAP PO SCH (08:12)
[2017-03-06] MEDS: SODIUM CHLORIDE 0.9% FLUSH 10 ML FLUSH IV FLUSH SCH ×2 (08:12→21:52)
[2017-03-06] MEDS: SPIRONOLACTONE 25 MG TAB PO SCH (08:12)
[2017-03-06] MEDS: DOCUSATE SODIUM 50 MG/SENNA 8.6 MG TAB PO SCH ×2 (08:13→21:00)
--- NOTE | 2017-03-06 08:16 | HHI.CCPN ---
Subjective Remarks/Hospital Course 71-year-old male . Date of admission 03/05/2017. Date of consultation 03/05/2017. Past medical history of HIV on HAART 10 years, hypertension, hyperlipidemia, diabetes mellitus, BPH, COPD (not on home O2) , chronic systolic heart failure with ejection fraction 45-50% who presented to [facility] emergency department on 03/05 with shortness of breath. He had CT pulmonary angiogram that was negative for PE but demonstrated moderate right effusion, pleural thickening with distractive process of right sixth rib. This appears to be a malignant process with post obstructive pneumonia. Yolie Last was called due to acute onset of shortness of breath with sats in the low 80s on 4 L nasal cannula. He was placed on Ventimask and subsequently on nonrebreather. He denies chest pain. He was given Lasix 40 mg IV during helical had and has diuresed 400 ML's. He states that he feels improved. He is breathing comfortably Subjective: 03/06: Status post right pigtail catheter placement for right pleural effusion. -850 cc serosanguineous fluid removed. One chamber airleak. Follow-up chest x-ray pending. Appears more comfortable from a respiratory standpoint. Objective Vital Signs Date Time Temp Pulse Resp B/P Pulse Ox O2 Delivery O2 Flow Rate FiO2 03/06/17 07:54 94 Nasal Cannula 3.00 03/06/17 06:00 101 03/06/17 04:10 98.4 20 133/80 03/06/17 00:00 50 Intake and Output 03/05/17 03/05/17 03/06/17 08:00 16:00 00:00 Output Total 800 ml Balance -800 ml Result Diagram: 03/06/17 0330 03/06/17 0330 Other Results Microbiology Date/Time Procedure Status Source Growth 03/05/17 19:00 Aerobic Blood Culture Received Blood Peripheral Pending 03/05/17 19:00 Anaerobic Blood Culture Received Blood Peripheral Pending 03/05/17 13:40 Urine Culture Received Urine Clean Catch Pending 03/05/17 13:40 Legionella Antigen Received Urine Clean Catch Pending 03/05/17 13:40 Streptococcus pneumoniae Antigen (M Received Urine Clean Catch Pending Imaging Last Impressions CT Angiography 03/05/17 5987 Signed Impressions: Service Date/Time: Sunday, March 05, 2017 16:25 - CONCLUSION: Abnormal right lung. Moderate effusion and consolidation is present with pleural thickening. Neoplastic process is suspected. The right rib could be biopsied percutaneously for diagnosis. Josue Gregg MD FACR Chest X-Ray 03/05/17 1333 Signed Impressions: Service Date/Time: Sunday, March 05, 2017 14:10 - CONCLUSION: Moderate size right pleural effusion with associated volume loss and/or airspace consolidation. Julio Mcknight MD Objective Remarks GENERAL:71 yo male currently resting in bed in no acute distress SKIN: Warm and dry, no rash. No decubitus ulcer HEAD: Atraumatic. Normocephalic. EYES: Right pupil 4 mm round and reactive, left pupil 3 mm round and very minimally reactive with cataract.. No signs of chronic uveitis.. ENT: No signs of cerumen impaction. Oral mucosa is pink and moist. Oropharynx without erythema. No thrush NECK: Trachea midline. No JVD. Supple CARDIOVASCULAR: RRR. S1, S2 no S4 without murmur. RESPIRATORY: No accessory muscle use. Diminished throughout right lung field. Left lung is clear to auscultation anteriorly and posteriorly. Symmetrical excursion. Right-sided midaxillary chest tube with stay fix in place GASTROINTESTINAL: Abdomen very protuberant (patient states his baseline) but soft, nontender. Bowel sounds normoactive.. MUSCULOSKELETAL: Extremities without significant peripheral edema. No obvious deformities. NEUROLOGICAL: Awake and alert. No obvious cranial nerve deficits aside from pupils as per above. Strength 5 out of 5 in all 4 extremities. Normal sensation to light touch and pinprick. Gait was not assessed. 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 Incentive spirometry while awake Status post #10 Nigerien pigtail catheter placement. See procedure note. -40 CM H2O with -850 cc serosanguineous cloudy fluid removed. Follow chest x -ray pending CT chest 03/05 revealed moderate sided pleural effusion, bilateral pulse of some generalized lung changes with pulmonary thickening. Suspicious right sixth rib lesion Pleural fluid studies have been sent see orders Continue DuoNeb every 4 hours. Albuterol every 2 hours as needed for dyspnea. Has received diuretic with Lasix 40 mg IV and is diuresing. Normally on Lasix 20 mg daily and Aldactone 25 mg by mouth daily previously below Mucinex 600 mg by mouth twice a day for mucolytic Consult pulmonology. Radiology documented 6th right rib lesion amenable to percutaneous biopsy CV: Hypertension Hyperlipidemia Chronic systolic heart failure (EF 45-50% on echo 04/24/16) Pulmonary hypertension Continue home meds of metoprolol 12.5 mg by mouth twice a day for hypertension, Lasix 20 mg by mouth daily, Spironolactone 25 mg by mouth daily home medications 04/24/16 echocardiogram - ejection fraction 45-50%. Mild decrease in systolic function. No regional wall motion abnormality. RAFA 43 mmHg On Zocor 10 mg at night for dyslipidemia. Substitute for pravastatin 20 mg by mouth at bedtime at this facility Continue aspirin 81 mg Tuesday/Tuesday/Tuesday GI: 1800 ADA to be continued No indication for GI prophylaxis Brit-Colace twice a day for bowel regimen : BPH Patient is voiding without necessity of Richey catheter Continue finasteride 5 mg by mouth daily Continue Flomax 0.8 mg by mouth daily ID: HIV Postobstructive pneumonia Patient continued on his own home HIV medications on admission Odefesy 1 capsule daily Discontinue Rocephin and azithromycin. Also received 1 dose of Zosyn yesterday At the present time we'll continue cefepime, Flagyl, Levaquin for postobstructive pneumonia. Day #1 Blood culture pending. Urine Legionella and pneumococcal antigen negative. Send sputum culture if able to obtain specimen. Pleural infiltrate cultures well UA unremarkable for evidence of infection. On Valtrex 1 g daily prophylaxis HEME: Microcytic anemia Monitor CBC No signs of active bleeding. No indications for transfusion of blood products at this time. ENDO: Diabetes mellitus Holding home medication of glipizide/metformin 2.5/500 mg twice a day Medium dose insulin sliding scale ac/hs to be continued currently RENAL: Creatinine currently within normal limits Monitor urine output Accurate I's and O's FEN: Replace electrolytes as clinically indicated per electrolyte protocol MSK: Continue calcium carbonate vitamin D 600/800 units 1 tablet daily Physical therapy evaluate and treat Access - Utilize peripheral IV. Central line if indicated Prophylaxis - GI - not indicated - DVT - SCD/pharmacological prophylaxis likely to start tonight 12 hours after chest tube placement Level II Patient is stable from a critical care medicine standpoint. We will assign care back to the hospitalist in AM 03/07. Carlos Aquino MD March 06, 2017 08:16
[2017-03-06] MEDS ORDERED: LIDOCAINE HCL 1% 50 ML VIAL ONE (08:35)
[2017-03-06] MEDS ORDERED: LIDOCAINE HCL 1% PF 30 ML VIAL INFIL ONE (08:45)
[2017-03-06] MEDS ORDERED: RILPIVIRINE PO SCH (09:00)
[2017-03-06] MEDS ORDERED: RILPIVIRINE 25 MG TAB PO SCH (09:00)
[2017-03-06] MEDS ORDERED: EMTRICITABINE 200 MG CAP PO SCH (09:00)
[2017-03-06] MEDS ORDERED: TENOFOVIR ALAFENAMIDE PO SCH (09:00)
[2017-03-06] MEDS ORDERED: ODEFSEY PO SCH (09:00)
[2017-03-06] MEDS ORDERED: RESP: ALBUTEROL 2.5 MG/3 ML NEB (PRN) NEB (09:15)
[2017-03-06] MEDS ORDERED: PANTOPRAZOLE SOD 40 MG DELAYED RELEASE TAB PO SCH (09:30)
--- NOTE | 2017-03-06 09:31 | PD.PROCEDR ---
Procedure Note Procedure Date of procedure: 03/06/2017 Procedure: Right #10 Ukrainian chest tube placement Indication: Right pleural effusion with acute hypoxemic hypercapnic respiratory failure Details of procedure: Informed consent was obtained from the patient Julio Lee. The patient was laid supine. The lateral chest wall was cleaned with ChloraPrep twice. Regional sterile drapes were applied. 1% lidocaine with epinephrine was used for local anesthesia and injected into the subcutaneous and deep muscle tissues. An 18 gauge 7 cm needle was inserted in the mid axillary space by the nipple. This was directed superior to the rib with release of serosanguineous fluid. After which, a guidewire was placed in a small incision was made with scalpel blade. Using the Seldinger technique, a size10 [place] chest tube was inserted into the pleural cavity without complication.. 0-0 silk was used to close the wound and to secure the chest tube. A sterile Vaseline gauze dressing was applied. Stay fix was then applied. The chest tube was connected to a Pleur-evac drainage system via vinyl connecting tube. There was a persistent one chamber air leak. There was 850 serosanguineous output from the chest tube. Estimated blood loss: Minimal Complications: None. Stat chest x-ray pending at time of dictation. Carlos Aquino MD March 06, 2017 09:31
[2017-03-06] MEDS: valACYclovir HCL 500 MG TAB PO SCH (09:39)
[2017-03-06] MEDS ORDERED: INFLUENZA VIRUS VACCINE (QUADRIVALENT) 0.5 ML SYR IM ONE (10:00)
[2017-03-06 10:20] LABS: PLEURAL FLUID LYMPHS 25 %
--- NOTE | 2017-03-06 10:47 | RADRPT ---
EXAM DATE/TIME: 03/06/2017 10:08 [facility] COMPARISON: CHEST SINGLE AP, March 05, 2017, 20:49. INDICATIONS : Chest tube placement. MEDICAL HISTORY : Hypercholesterolemia. Hypertension. Glaucoma. Headaches. Myocardial SURGICAL HISTORY : None. ENCOUNTER: Subsequent ACUITY: 3 days PAIN SCORE: 0/10 LOCATION: Bilateral chest FINDINGS: Portable AP view of the chest demonstrates a normal-sized cardiac silhouette. There is a stable moder ate size right basilar pleural-parenchymal opacity. No pneumothorax is visualized. Chest tube overlie s the space between the patient's arm and chest wall. CONCLUSION: 1. The chest tube is not within the patient but appears to be located between the patient's arm and c hest wall. 2. Stable moderate size right pleural effusion with associated compressive atelectasis and/or consoli dation. Julio Mcknight MD on March 06, 2017 at 10:44 Board Certified Radiologist. This report was verified electronically.
--- NOTE | 2017-03-06 11:51 | PD.PROCEDR ---
Procedure Note Procedure Date of procedure: 02/26/2017 Procedure: Right-sided chest tube placement Indication: Right-sided pleural effusion/prior chest tube fell out] Details of procedure: Informed consent was obtained from the patient. The patient was laid supine. The lateral chest wall was cleaned with ChloraPrep twice. Regional sterile drapes were applied. 1% lidocaine with epinephrine was used for local anesthesia and injected into the subcutaneous and deep muscle tissues. An 18 gauge 7 cm needle was inserted in the mid axillary space by the nipple. This was directed superior to the rib with release of serosanguineous fluid. After which, a guidewire was placed in a small incision was made with scalpel blade. Using the Seldinger technique, a size10 Russian chest tube was inserted into the pleural cavity without complication.. 0-0 silk was used to close the wound and to secure the chest tube. A sterile Vaseline gauze dressing was applied. Stay fix was then applied. The chest tube was connected to a Pleur-evac drainage system via vinyl connecting tube. There was a persistent one chamber air leak. There was 850 serosanguineous output from the chest tube. Carlos Aquino MD March 06, 2017 11:51
--- NOTE | 2017-03-06 12:21 | RADRPT ---
EXAM DATE/TIME: 03/06/2017 11:49 [facility] COMPARISON: CHEST SINGLE AP, March 06, 2017, 10:08. INDICATIONS : Evaluate chest tube placement MEDICAL HISTORY : Hypercholesterolemia. Hypertension. Glaucoma. Headaches. Myocardial SURGICAL HISTORY : None. ENCOUNTER: Subsequent ACUITY: 3 days PAIN SCORE: 0/10 LOCATION: Bilateral chest FINDINGS: Portable upright expiratory view the chest demonstrates a normal-sized cardiac silhouette. Pigtail ri ght chest tube now overlies the peripheral mid right hemithorax. No pneumothorax is visualized. There is possible mild decrease size of the right pleural-parenchymal opacity. There is atelectasis at the left lung base. CONCLUSION: 1. The right-sided chest tube overlies the peripheral mid right hemithorax. No pneumothorax is visual ized. 2. The right pleural effusion appears slightly smaller in size. Julio Mcknight MD on March 06, 2017 at 12:18 Board Certified Radiologist. This report was verified electronically.
[2017-03-06 13:18] LABS: HEMOGLOBIN A1a 2.2 %; HEMOGLOBIN A1b 1.9 %; HEMOGLOBIN Ao 84.2 %; HEMOGLOBIN LA1C 1.8 %; HEMOGLOBIN P3 3.6 %
[2017-03-06] MEDS ORDERED: AZITHROMYCIN INJ 250 MG in SODIUM CHLOR 0.9% 250 ML INJ 250 ML IV SCH (15:00)
[2017-03-06] MEDS ORDERED: cefTRIAXone INJ 1,000 MG in SODIUM CHLORIDE 0.9% INJ 100 ML IV SCH (15:00)
[2017-03-06] MEDS ORDERED: MORPHINE SULFATE 4 MG/ML INJ IV PUSH ONE (15:30)
--- NOTE | 2017-03-06 16:17 | EKG ---
Date Performed: 03/05/2017 Time Performed: 13:09:18 PTAGE: 71 years EKG: SINUS TACHYCARDIA WITH SHORT AK INTERVAL NONSPECIFIC T-WAVE ABNORMALITY When compared to pr evious tracing, the previous tracing showed Changes of early repolarization, not present on thios tra cing. AK interval slightly shorter on this tracing. ABNORMAL RHYTHM ECG PREVIOUS TRACING : 06/07/2012 19.55 DOCTOR: Zach Mora Interpretating Date/Time 03/06/2017 16:16:33
[2017-03-06] MEDS ORDERED: MORPHINE SULFATE 4 MG/ML INJ IV PRN (17:00)
[2017-03-06] MEDS ORDERED: SODIUM CHLORIDE 0.9% FLUSH 10 ML FLUSH IV FLUSH PRN (17:00)
--- NOTE | 2017-03-06 17:48 | RADRPT ---
EXAM DATE/TIME: 03/06/2017 17:01 [facility] COMPARISON: CT PULMONARY ANGIOGRAM, March 05, 2017, 16:25. CHEST SINGLE AP, March 06, 2017, 11:49. INDICATIONS : Evaluate right side chest tube placement. MEDICAL HISTORY : Hypercholesterolemia. Hypertension. Glaucoma. Headaches. Myocardial SURGICAL HISTORY : None. ENCOUNTER: Subsequent ACUITY: 1 day PAIN SCORE: 0/10 LOCATION: Bilateral chest FINDINGS: Right basilar patchiness is noted consistent with atelectasis and/or pneumonia. Clinical correlation is recommended. A small right pleural effusion is noted. Right-sided chest tube is stable. No pne umothorax is noted. There is a focal lucency involving the right scapula consistent with probable ly tic metastasis. CONCLUSION: 1. Right basilar patchiness consistent with atelectasis and/or pneumonia. 2. Small right pleural effusion. 3. 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 Kwadwo Hummel MD on March 06, 2017 at 17:42 Board Certified Radiologist. This report was verified electronically.
--- NOTE | 2017-03-06 18:48 | MB ---
cc: ALEKS WOODS DATE OF CONSULTATION: 03/06/2017. REASON FOR CONSULTATION: Pleural effusion. REQUESTING PHYSICIAN: Dr. Aquino. HISTORY OF PRESENT ILLNESS: Mr. Lee is a 71-year-old -[place] male with history of HIV disease. He is on HAART treatment. He follows with Dr. Narendra German. He also has a history of congestive heart failure and COPD. He came to the hospital with complaint of shortness of breath going on for at least one week or so. He did not have any fever or chills. No night sweats. No chest pain. No nausea or vomiting. The patient was evaluated in the hospital. He had a CTA of the chest done and it did not show any pulmonary embolus, moderate effusion and consolidation in the right lung and he also had a right rib destruction. He had a chest tube placed and about a total of 900 cc of fluid was removed. The pleural fluid has been sent for cytology. He does not have any cough or sputum production. No fever or chills. PAST MEDICAL HISTORY: His past medical history is significant for: 1. History of COPD. 2. Hypertension. 3. HIV disease. 4. Hyperlipidemia. 5. Congestive heart failure. 6. Diabetes mellitus. MEDICATIONS: He is takin. Aspirin 81 milligrams a day. 2. Morphine 2 milligrams PRN. 3. Albuterol nebulizer treatment. 4. Finasteride 5 milligrams a day. 5. Lasix 20 milligrams a day. 6. Aldactone 25 milligrams a day. 7. Flomax 0.8 milligrams a day. 8. Valcyte 1000 milligrams daily. 9. Flomax 0.8 milligrams a day. 10. Levaquin 750 milligrams a day. 11. Cefepime 2 grams q. 8 hours. 12. Metoprolol 12.5 milligrams twice a day. 13. Tramadol for pain. 14. Pravastatin 20 milligrams a day. ALLERGIES: NO KNOWN DRUG ALLERGIES. SOCIAL HISTORY: He was before now he lives alone. He used to work multiple jobs. Had a history of smoking, alcohol and drug use. He used crack cocaine. He denies any IV drug abuse. FAMILY HISTORY: He has four children, two of them are in long term. REVIEW OF SYSTEMS: He denies any weight loss. No hemoptysis. No DVT or pulmonary embolism. No seizure, stroke or epilepsy. PHYSICAL EXAMINATION: GENERAL: An elderly male not in any acute distress. VITAL SIGNS: Blood pressure 107/69, heart rate 101, respirations 20, temperature 98. HEAD, EYES, EARS, NOSE, THROAT: Pupils are equal and reactive to light. Oral mucosa and nasal mucosa are normal. NECK: The neck is supple. JVP not raised. CHEST: He has decreased breath sounds at the right chest. CARDIOVASCULAR: S1 and S2 normal. ABDOMEN: Abdomen soft, mildly distended, nontender. Bowel sounds are present. EXTREMITIES: No edema. IMPRESSION: 1. Right pleural effusion. 2. Destruction of the right fifth rib, need to rule out possible malignancy. 3. HIV disease. 4. Congestive heart failure. 5. Hypertension. 6. COPD. PLAN: I discussed with the patient will check his pleural fluid results. If the pleural fluid cytology is negative, will consider CT-guided rib biopsy to make the diagnosis for cancer. Continue his antibiotic aerosol treatment. Supplement his oxygen. Further treatment will depend on the course in the hospital. Thank you, Dr. Aquino, for this consult. MD JATINDER Lerma/RENETTA /6:31 PM /6:36 PM MTDEmir
[2017-03-06] MEDS: PRAVASTATIN SOD 20 MG TAB PO SCH (21:00)
--- NOTE | 2017-03-06 22:02 | RADRPT ---
EXAM DATE/TIME: 03/06/2017 21:08 [facility] COMPARISON: CHEST SINGLE AP, March 06, 2017, 17:01. INDICATIONS : Chest tube placement. MEDICAL HISTORY : Hypercholesterolemia. Hypertension. Glaucoma. Headaches. Myocardial. SURGICAL HISTORY : None. ENCOUNTER: Subsequent ACUITY: 1 week PAIN SCORE: 0/10 LOCATION: Bilateral chest FINDINGS: There is persistent right basilar patchiness which is stable. Small right pleural effusion is also s table. The right chest tube has been removed. No recurrent pneumothorax is noted. The left lung is clear. Lytic lesion is again noted within the right scapula consistent with probable metastatic dis ease. CONCLUSION: 1. No pneumothorax status post removal of right chest tube. 2. Right basilar patchiness consistent with probable pneumonia and/or atelectasis. 3. Small right pleural effusion. 4. Stable lytic lesion within the right scapula consistent with probable metastatic disease. Kwadwo Hummel MD on March 06, 2017 at 21:55 Board Certified Radiologist. This report was verified electronically.
[2017-03-07] VITALS (22 sets, daily range): BP systolic 106–137; BP diastolic 72–97; PULSE 21–118; RESP 14–25; TEMP 96.4–99.2; O2SAT 91–96
[2017-03-07 03:01] LABS: TOTAL PROTEIN,PLEURAL FLUID 5.5 GM/DL
[2017-03-07] MEDS: RESP: ALBUTEROL 2.5 MG/IPRATROPIUM 0.5 MG NEB (SCH) NEB ×5 (03:09→21:36)
[2017-03-07] MEDS: CHLORHEXIDINE GLUCONATE 2 % 1 PACK (2 CLOTHS)(taper/protocol) TOPICAL SCH (04:00)
[2017-03-07] MEDS: metroNIDAZOLE 500 MG TAB PO SCH ×3 (05:07→22:02)
[2017-03-07 06:10] LABS: AUTOMATED NEUTROPHIL # 8.2 TH/MM3 (1.8-7.7); BASOPHIL % 0.1 % (0.0-2.0); EOSINOPHIL # 0.1 TH/MM3 (0-0.4); EOSINOPHIL % 0.7 % (0.0-4.0); HEMATOCRIT 44.4 % (39.0-51.0); HEMO FLAGS DIFF FINAL; LYMPHOCYTE # 0.8 TH/MM3 (1.0-4.8); MEAN CELL VOLUME 78.7 FL (80.0-100.0); MEAN CORPUSCULAR HEMOGLOBIN 23.6 PG (27.0-34.0); MONO % 7.6 % (0.0-8.0); NEUT % 83.6 % (16.0-70.0); PLATELET COUNT 272 TH/MM3 (150-450); RED BLOOD COUNT 5.64 MIL/MM3 (4.50-5.90); RED CELL DISTRIBUTION WIDTH 16.2 % (11.6-17.2); WHITE BLOOD COUNT 9.8 TH/MM3 (4.0-11.0)
[2017-03-07 06:22] LABS: ALT (GPT) 23 U/L (12-78); ANION GAP 11 MEQ/L (5-15); AST (GOT) 28 U/L (15-37); BICARBONATE 28.5 MEQ/L (21.0-32.0); BLOOD UREA NITROGEN 22 MG/DL (7-18); CHLORIDE 100 MEQ/L (98-107); GLOMERULAR FILTRATION RATE 97 ML/MIN (>89); MAGNESIUM 2.3 MG/DL (1.5-2.5); SODIUM (NA) 139 MEQ/L (136-145)
[2017-03-07 06:25] LABS: ALKALINE PHOSPHATASE 118 U/L (45-117); TOTAL BILIRUBIN ADULT 1.1 MG/DL (0.2-1.0)
[2017-03-07] MEDS: CEFEPIME INJ 2,000 MG in SODIUM CHLORIDE 0.9% INJ 100 ML IV SCH ×3 (06:48→22:44)
[2017-03-07] MEDS: INSULIN NovoLIN REGULAR SUPPLEMENTAL SCALE SQ SCH ×4 (06:48→21:00)
--- NOTE | 2017-03-07 06:54 | RADRPT ---
EXAM DATE/TIME: 03/07/2017 05:25 [facility] COMPARISON: CHEST SINGLE AP, March 06, 2017, 21:08. INDICATIONS : Pneumothorax. MEDICAL HISTORY : None. SURGICAL HISTORY : None. ENCOUNTER: Subsequent ACUITY: 3 days PAIN SCORE: Non-responsive. LOCATION: Bilateral chest FINDINGS: Right base infiltrate effusion are unchanged. Left lung remains grossly clear. Visualized cardiac con tours are stable. CONCLUSION: No significant change Julio Pillai MD on March 07, 2017 at 6:51 Board Certified Radiologist. This report was verified electronically.
[2017-03-07] MEDS: valACYclovir HCL 500 MG TAB PO SCH (10:03)
[2017-03-07] MEDS: LEVOFLOXACIN 750 MG TAB PO SCH (10:03)
[2017-03-07] MEDS: FUROSEMIDE 20 MG TAB PO SCH (10:04)
[2017-03-07] MEDS: guaiFENesin E.R. 600 MG TAB PO SCH ×2 (10:04→22:02)
[2017-03-07] MEDS: DOCUSATE SODIUM 50 MG/SENNA 8.6 MG TAB PO SCH ×2 (10:04→22:02)
[2017-03-07] MEDS: TAMSULOSIN HCL 0.4 MG CAP PO SCH (10:04)
[2017-03-07] MEDS: SPIRONOLACTONE 25 MG TAB PO SCH (10:04)
[2017-03-07] MEDS: METOPROLOL TARTRATE 25 MG TAB PO SCH ×2 (10:05→22:02)
[2017-03-07] MEDS: traMADol HCL 50 MG TAB PO SCH ×2 (10:05→22:02)
[2017-03-07] MEDS: SODIUM CHLORIDE 0.9% FLUSH 10 ML FLUSH IV FLUSH SCH ×2 (10:05→22:02)
[2017-03-07] MEDS: FINASTERIDE 5 MG TAB PO SCH (10:05)
--- NOTE | 2017-03-07 13:01 | HHI.PR ---
Subjective Remarks inventory specialist Notes: 71-year-old male . Date of admission 03/05/2017. Date of consultation 03/05/2017. Past medical history of HIV on HAART 10 years, hypertension, hyperlipidemia, diabetes mellitus, BPH, COPD (not on home O2) , chronic systolic heart failure with ejection fraction 45-50% who presented to [facility] emergency department on 03/05 with shortness of breath. He had CT pulmonary angiogram that was negative for PE but demonstrated moderate right effusion, pleural thickening with distractive process of right sixth rib. This appears to be a malignant process with post obstructive pneumonia. 03/06: Status post right pigtail catheter placement for right pleural effusion. -850 cc serosanguineous fluid removed. One chamber airleak. Follow-up chest x-ray pending. Appears more comfortable from a respiratory standpoint. Hospitalist Notes: 03/07: Seen in his bedroom, he is talking through the phone, no complaint, no nausea, vomit or diarrhea. Objective Vital Signs Date Time Temp Pulse Resp B/P Pulse Ox O2 Delivery O2 Flow Rate FiO2 03/07/17 11:05 18 03/07/17 08:15 95 Nasal Cannula 4.00 03/07/17 06:00 102 15 137/94 94 03/07/17 06:00 102 03/07/17 05:06 102 25 113/78 95 03/07/17 05:00 101 20 92 03/07/17 04:00 98 03/07/17 04:00 95 Nasal Cannula 4.00 03/07/17 04:00 98.8 98 22 108/72 95 03/07/17 03:00 93 14 131/97 93 03/07/17 02:00 95 03/07/17 02:00 95 20 136/97 93 03/07/17 01:00 91 19 113/80 03/07/17 00:00 88 18 106/78 95 03/07/17 00:00 95 Nasal Cannula 4.00 03/07/17 00:00 88 03/07/17 00:00 99.2 88 22 106/78 95 03/06/17 23:00 90 28 121/77 94 03/06/17 22:00 101 03/06/17 22:00 101 24 96 03/06/17 21:00 125 23 119/75 92 03/06/17 20:07 92 Nasal Cannula 4.00 03/06/17 20:00 89 Nasal Cannula 4.00 03/06/17 20:00 119 03/06/17 20:00 98.8 119 30 120/76 89 03/06/17 18:00 99.6 104 26 120/74 92 03/06/17 18:00 104 03/06/17 17:43 18 03/06/17 16:06 18 03/06/17 16:00 98 Nasal Cannula 3.00 03/06/17 16:00 109 03/06/17 14:00 113 03/06/17 14:00 113 25 83 03/06/17 13:00 101 26 107/69 91 03/06/17 13:00 101 26 107/69 91 I/O 03/06/17 03/06/17 03/06/17 03/07/17 03/07/17 03/07/17 07:00 15:00 23:00 07:00 15:00 23:00 Intake Total 440 ml 240 ml 713 ml 300 ml Output Total 350 ml 950 ml 325 ml 225 ml Balance 90 ml -710 ml 388 ml 75 ml Intake Oral 240 ml 240 ml 500 ml 300 ml IV Total 200 ml 213 ml 0 ml Output Urine Total 350 ml 950 ml 325 ml 225 ml # Bowel Movements 0 0 Result Diagram: 03/07/17 0506 03/07/17 0506 Imaging Last Impressions Chest X-Ray 03/07/17 0600 Signed Impressions: Service Date/Time: Tuesday, March 07, 2017 05:25 - CONCLUSION: No significant change Julio Pillai MD CT Angiography 03/05/17 1517 Signed Impressions: Service Date/Time: Sunday, March 05, 2017 16:25 - CONCLUSION: Abnormal right lung. Moderate effusion and consolidation is present with pleural thickening. Neoplastic process is suspected. The right rib could be biopsied percutaneously for diagnosis. Josue Gregg MD FACR Procedures Right Chest Tube placement Other Results Laboratory Tests Test 03/05/17 03/05/17 03/05/17 03/05/17 13:40 14:38 20:47 21:30 Urine Color YELLOW Urine Turbidity CLEAR Urine pH 5.0 Urine Specific [place] 1.016 Urine Protein 30 mg/dL Urine Glucose (UA) NEG mg/dL Urine Ketones NEG mg/dL Urine Occult Blood TRACE Urine Nitrite NEG Urine Bilirubin NEG Urine Urobilinogen LESS THAN 2.0 MG/DL Urine Leukocyte Esterase NEG Urine RBC 1 /hpf Urine WBC 1 /hpf Urine Hyaline Casts 7 /lpf Urine Granular Casts 7 /lpf Microscopic Urinalysis Comment CULT NOT INDICATED B-Type Natriuretic Peptide 17 PG/ML Activated Partial 25.2 SEC Thromboplast Time D-Dimer Quantitative (PE/DVT) 7.72 MG/L FEU Blood Gas Puncture Site RT RADIAL Blood Gas Patient Temperature 98.6 Blood Gas HCO3 29 mmol/L Blood Gas Base Excess 4.4 mmol/L Blood Gas Oxygen Saturation 95 % Arterial Blood pH 7.37 Arterial Blood Partial 53 mmHg Pressure CO2 Arterial Blood Partial 112 mmHg Pressure O2 Arterial Blood Oxygen Content 17.1 Vol % Arterial Blood 1.8 % Carboxyhemoglobin Arterial Blood Methemoglobin 0.7 % Blood Gas Hemoglobin 12.6 G/DL Oxygen Delivery Device NON REBREATHER Blood Gas Liter Flow 15 L/M Nasal Screen MRSA (PCR) MRSA NOT DETECTED Test 03/06/17 03/06/17 03/07/17 03:30 09:10 05:06 Prothrombin Time 12.8 SEC Prothromb Time International 1.2 RATIO Ratio Hemoglobin A1c 6.1 % Total Creatine Kinase 141 U/L Troponin I LESS THAN 0.02 NG/ML Triglycerides Level 87 MG/DL Cholesterol Level 101 MG/DL LDL Cholesterol 42 MG/DL HDL Cholesterol 41.3 MG/DL Cholesterol/HDL Ratio 2.44 RATIO Free Thyroxine 1.49 NG/DL Thyroid Stimulating Hormone 0.873 uIU/ML 3rd Gen Pleural Fluid pH 8.0 Pleural Fluid WBC 1435 /MM3 Pleural Fluid RBC 80957 /MM3 Pleural Fluid Neutrophils 40 % Pleural Fluid Lymphocytes 25 % Pleural Fluid Monocytes 3 % Pleural Fluid Eosinophils 2 % Pleural Fluid Histiocytes 17 % Pleural Fluid Mesothelial 3 % Cells Pleural Fluid Other Cells 10 % Pleural Fluid Total Protein 5.5 GM/DL Pleural Fluid LDH 343 U/L Pleural Fluid Glucose 112 MG/DL White Blood Count 9.8 TH/MM3 Red Blood Count 5.64 MIL/MM3 Hemoglobin 13.3 GM/DL Hematocrit 44.4 % Mean Corpuscular Volume 78.7 FL Mean Corpuscular Hemoglobin 23.6 PG Mean Corpuscular Hemoglobin 30.0 % Concent Red Cell Distribution Width 16.2 % Platelet Count 272 TH/MM3 Mean Platelet Volume 8.9 FL Neutrophils (%) (Auto) 83.6 % Lymphocytes (%) (Auto) 8.0 % Monocytes (%) (Auto) 7.6 % Eosinophils (%) (Auto) 0.7 % Basophils (%) (Auto) 0.1 % Neutrophils # (Auto) 8.2 TH/MM3 Lymphocytes # (Auto) 0.8 TH/MM3 Monocytes # (Auto) 0.7 TH/MM3 Eosinophils # (Auto) 0.1 TH/MM3 Basophils # (Auto) 0.0 TH/MM3 CBC Comment DIFF FINAL Differential Comment Sodium Level 139 MEQ/L Potassium Level 4.0 MEQ/L Chloride Level 100 MEQ/L Carbon Dioxide Level 28.5 MEQ/L Anion Gap 11 MEQ/L Blood Urea Nitrogen 22 MG/DL Creatinine 0.93 MG/DL Estimat Glomerular Filtration 97 ML/MIN Rate Random Glucose 110 MG/DL Calcium Level 9.5 MG/DL Phosphorus Level 3.2 MG/DL Magnesium Level 2.3 MG/DL Total Bilirubin 1.1 MG/DL Aspartate Amino Transf 28 U/L (AST/SGOT) Alanine Aminotransferase 23 U/L (ALT/SGPT) Alkaline Phosphatase 118 U/L Total Protein 8.4 GM/DL Albumin 2.8 GM/DL Objective Remarks GENERAL:No acute distress. SKIN: Warm and dry, no rash. HEAD: Atraumatic. Normocephalic. ENT: No signs of cerumen impaction. NECK: Trachea midline. No JVD. Supple CARDIOVASCULAR: RRR. S1, S2 no S4 without murmur. RESPIRATORY: Decreased breath sounds bilateral. Chest tube in place. GASTROINTESTINAL: Abdomen very protuberant (patient states his baseline) but soft, nontender. MUSCULOSKELETAL: Extremities without significant peripheral edema. No obvious deformities. NEUROLOGICAL: Awake and alert. No focal deficits. Medications and IVs Current Medications Medications (Trade) Dose Ordered Sig/Keena Route Start Time Stop Time Status Last Admin (Ecotrin Ec) 81 mg MOWEFR PO 03/07/17 16:15 (Proscar) 5 mg DAILY PO 03/06/17 09:00 03/07/17 10:05 (Lasix) 20 mg DAILY PO 03/06/17 09:00 03/07/17 10:04 (Lopressor) 12.5 mg BID PO 03/05/17 21:00 03/07/17 10:05 (Aldactone) 25 mg DAILY PO 03/06/17 09:00 03/07/17 10:04 (Flomax) 0.8 mg DAILY PO 03/06/17 09:00 03/07/17 10:04 (Ultram) 50 mg BID PO 03/05/17 21:00 03/07/17 10:05 (Valtrex) 1,000 mg DAILY PO 03/06/17 09:00 03/07/17 10:03 (Pravachol) 20 mg HS PO 03/05/17 21:00 03/06/17 21:00 (Tylenol) 650 mg Q4H PRN PO 03/05/17 16:15 (Zofran Inj) 4 mg Q6H PRN IVP 03/05/17 16:15 (Narcan Inj) 0.4 mg UNSCH PRN IV 03/05/17 16:15 (Brit-Colace) 1 tab BID PO 03/05/17 21:00 03/07/17 10:04 (Milk Of Magnesia Liq) 30 ml Q12H PRN PO 03/05/17 16:15 (Senokot) 17.2 mg Q12H PRN PO 03/05/17 16:15 (Dulcolax Supp) 10 mg DAILY PRN RECTAL 03/05/17 16:15 (Lactulose Liq) 30 ml DAILY PRN PO 03/05/17 16:15 (Mucinex Er) 600 mg BID PO 03/05/17 21:00 03/07/17 10:04 Patient Own Medication PT OWN MED: KARIME(EMTRICITABINE 200MG,RILPIVIRINE... DAILY PO 03/06/17 09:00 Hold Miscellaneous Information Patient in critical care unit? Ass... Q361D .XX 03/05/17 23:00 (Chlorhexidine 2% Cloth) 3 pack DAILY@04 TOPICAL 03/06/17 04:00 03/10/17 04:01 03/07/17 04:00 (Chlorhexidine 2% Cloth) 3 pack UNSCH PRN TOPICAL 03/05/17 23:00 03/10/17 22:50 (Levaquin) 750 mg DAILY PO 03/06/17 09:00 03/07/17 10:03 Metronidazole 500 mg 500 mg Q8HR PO 03/05/17 23:00 03/07/17 05:07 (Maxipime Inj/NS Inj) 100 ml @ 200 mls/hr Q8H IV 03/05/17 23:00 03/07/17 06:48 (Protonix) 40 mg DAILY PO 03/06/17 09:30 Hold (NS Flush) 2 ml UNSCH PRN IV FLUSH 03/06/17 17:00 (NS Flush) 2 ml BID IV FLUSH 03/06/17 21:00 03/07/17 10:05 ([place] 5-325 Mg) 1 tab Q4H PRN PO 03/06/17 17:00 (Morphine Inj) 2 mg Q2H PRN IV 03/06/17 17:00 03/06/17 17:38 A/P Assessment and Plan 1. Acute Respiratory Insufficiency/Hypoxia secondary to COPD Postobstructive Pneumonia, Right Pleural effusion status post Chest tube placement, following pleural fluid and cultures 2. Right lung Cancer work up in progress by pre billing specialist. erosion of the right 6th rib for possible biopsy 3. Left eye cataract and Legal blindness by history 4. Pleural Effusion status post #10 [place] Pigtail catheter placement, -40 CM H2O with -850 cc serosanguineous cloudy fluid removed. Follow chest x-ray pending CT chest 03/05 revealed moderate sided pleural effusion, bilateral pulse of some generalized lung changes with pulmonary thickening. Suspicious right sixth rib lesion Continue Bronchodilator, Mucolytic, incentive spirometry, Diuretics. 5. Hypertension/Hyperlipidemia/CHF EF 45-50% Echo 04/24/16/Pulmonary Hypertension continue Metoprolol, Diuretics, 6. DM II continue Diabetic Diet, sliding scale. 7. BPH continue Home medicines. 8. Postobstructive Pneumonia on Cefepime and Flagyl, Levaquin. 9. HIV to continue Home medicines, Valtrex 1 g daily prophylaxis Prophylaxis - GI - not indicated - DVT - SCD/pharmacological prophylaxis l Discharge Planning Once cleared by Specialists. Adrian Bailey MD March 07, 2017 13:01 - DVT - SCD/pharmacological prophylaxis l Adrian Bailey MD March 07, 2017 13:01
[2017-03-07] MEDS: ASPIRIN EC 81 MG TABEC PO SCH (16:22)
--- NOTE | 2017-03-07 16:55 | HHI.PR ---
Subjective Remarks 71 YOAA male with HIV,HTN,Pl effusion, rt rib destruction Breathing better Weaned to RA Denies sob Objective Vital Signs Vital Signs Date Time Temp Pulse Resp B/P Pulse Ox O2 Delivery O2 Flow Rate FiO2 03/07/17 16:00 93 Nasal Cannula 4.00 03/07/17 14:00 95 03/07/17 13:00 98 03/07/17 12:01 21 03/07/17 12:00 98 Nasal Cannula 4.00 03/07/17 12:00 98.3 92 17 93 03/07/17 12:00 98 03/07/17 11:05 18 03/07/17 11:00 109 03/07/17 11:00 109 20 123/86 92 03/07/17 10:00 118 03/07/17 10:00 118 24 119/79 92 03/07/17 09:00 116 24 124/85 91 03/07/17 09:00 116 03/07/17 08:15 95 Nasal Cannula 4.00 03/07/17 08:00 98.6 102 21 126/80 94 03/07/17 08:00 102 03/07/17 08:00 95 Nasal Cannula 4.00 03/07/17 06:00 102 15 137/94 94 03/07/17 06:00 102 03/07/17 05:06 102 25 113/78 95 03/07/17 05:00 101 20 92 03/07/17 04:00 98 03/07/17 04:00 95 Nasal Cannula 4.00 03/07/17 04:00 98.8 98 22 108/72 95 03/07/17 03:00 93 14 131/97 93 03/07/17 02:00 95 03/07/17 02:00 95 20 136/97 93 03/07/17 01:00 91 19 113/80 03/07/17 00:00 88 18 106/78 95 03/07/17 00:00 95 Nasal Cannula 4.00 03/07/17 00:00 88 03/07/17 00:00 99.2 88 22 106/78 95 03/06/17 23:00 90 28 121/77 94 03/06/17 22:00 101 03/06/17 22:00 101 24 96 03/06/17 21:00 125 23 119/75 92 03/06/17 20:07 92 Nasal Cannula 4.00 03/06/17 20:00 89 Nasal Cannula 4.00 03/06/17 20:00 119 03/06/17 20:00 98.8 119 30 120/76 89 03/06/17 18:00 99.6 104 26 120/74 92 03/06/17 18:00 104 03/06/17 17:43 18 I/O 03/06/17 03/06/17 03/06/17 03/07/17 03/07/17 03/07/17 07:00 15:00 23:00 07:00 15:00 23:00 Intake Total 440 ml 240 ml 713 ml 300 ml 970 ml Output Total 350 ml 950 ml 325 ml 225 ml 300 ml Balance 90 ml -710 ml 388 ml 75 ml 670 ml Intake Oral 240 ml 240 ml 500 ml 300 ml 960 ml IV Total 200 ml 213 ml 0 ml 10 ml Output Urine Total 350 ml 950 ml 325 ml 225 ml 300 ml # Bowel Movements 0 0 0 Result Diagram: 03/07/17 0506 03/07/17 0506 Objective Remarks GENERAL: MBMN AA male, NAD SKIN: Warm and dry. HEAD: Normocephalic. EYES: No scleral icterus. No injection or drainage. NECK: Supple, trachea midline. No JVD or lymphadenopathy. CARDIOVASCULAR: Regular rate and rhythm without murmurs, gallops, or rubs. RESPIRATORY: Breath sounds equal bilaterally. No accessory muscle use. GASTROINTESTINAL: Abdomen soft, non-tender, nondistended. MUSCULOSKELETAL: No cyanosis, or edema. BACK: Nontender without obvious deformity. No CVA tenderness. A/P Assessment and Plan Pleural effusion, s/p TC Pl fluid is exudative Rt rib destruction, r/o Malig HIV COPD CHF HTN PLAN: Cont Abx Wean off [address] fluid cytology If cytology neg, will need Rib bx Sunday Landry MD March 07, 2017 16:55
[2017-03-07] MEDS: PRAVASTATIN SOD 20 MG TAB PO SCH (22:02)
[2017-03-07] MEDS: SENNOSIDES 8.6 MG TAB PO PRN (22:02)
[2017-03-08] VITALS (13 sets, daily range): BP systolic 111–137; BP diastolic 65–84; PULSE 88–126; RESP 18–20; TEMP 96–98; O2SAT 90–96
[2017-03-08] MEDS: RESP: ALBUTEROL 2.5 MG/IPRATROPIUM 0.5 MG NEB (SCH) NEB ×6 (00:05→20:04)
[2017-03-08] MEDS: CHLORHEXIDINE GLUCONATE 2 % 1 PACK (2 CLOTHS)(taper/protocol) TOPICAL SCH (03:49)
[2017-03-08] MEDS: metroNIDAZOLE 500 MG TAB PO SCH ×3 (06:20→21:18)
[2017-03-08] MEDS: CEFEPIME INJ 2,000 MG in SODIUM CHLORIDE 0.9% INJ 100 ML IV SCH ×3 (06:21→23:00)
[2017-03-08] MEDS: INSULIN NovoLIN REGULAR SUPPLEMENTAL SCALE SQ SCH ×4 (06:39→21:00)
[2017-03-08] MEDS: SODIUM CHLORIDE 0.9% FLUSH 10 ML FLUSH IV FLUSH SCH ×2 (09:00→21:23)
[2017-03-08] MEDS: traMADol HCL 50 MG TAB PO SCH ×2 (09:22→21:18)
[2017-03-08] MEDS: guaiFENesin E.R. 600 MG TAB PO SCH ×2 (09:23→21:18)
[2017-03-08] MEDS: TAMSULOSIN HCL 0.4 MG CAP PO SCH (09:23)
[2017-03-08] MEDS: FINASTERIDE 5 MG TAB PO SCH (09:23)
[2017-03-08] MEDS: METOPROLOL TARTRATE 25 MG TAB PO SCH ×2 (09:23→21:18)
[2017-03-08] MEDS: LEVOFLOXACIN 750 MG TAB PO SCH (09:23)
[2017-03-08] MEDS: FUROSEMIDE 20 MG TAB PO SCH (09:23)
[2017-03-08] MEDS: SPIRONOLACTONE 25 MG TAB PO SCH (09:23)
[2017-03-08] MEDS: DOCUSATE SODIUM 50 MG/SENNA 8.6 MG TAB PO SCH ×2 (09:23→21:22)
--- NOTE | 2017-03-08 09:23 | HHI.PR ---
Subjective Remarks Still needing oxygen supplementation. Cytology from right pleural effusion drainage on 03/06/17 is pending. He will need a lung biopsy unless cytology is positive. The patient has no new complaints. Present situation is discussed with him. Objective Vital Signs Date Time Temp Pulse Resp B/P Pulse Ox O2 Delivery O2 Flow Rate FiO2 03/08/17 07:57 97.6 100 20 129/78 95 03/08/17 06:02 94 Nasal Cannula 4.00 03/08/17 05:33 97.5 99 18 111/79 94 03/08/17 01:25 91 93 03/08/17 00:47 98.0 88 20 119/79 96 03/08/17 00:20 102 03/08/17 00:20 92 Nasal Cannula 4.00 03/07/17 21:38 92 Nasal Cannula 4.00 03/07/17 20:32 96.4 102 20 119/78 93 03/07/17 18:00 95 19 134/80 96 03/07/17 18:00 96 03/07/17 17:00 97 15 108/74 93 03/07/17 17:00 97 03/07/17 16:00 101 03/07/17 16:00 93 Nasal Cannula 4.00 03/07/17 16:00 98.7 101 17 121/86 94 03/07/17 14:00 95 03/07/17 13:00 98 03/07/17 12:01 21 03/07/17 12:00 98 Nasal Cannula 4.00 03/07/17 12:00 98.3 92 17 93 03/07/17 12:00 98 03/07/17 11:05 18 03/07/17 11:00 109 03/07/17 11:00 109 20 123/86 92 03/07/17 10:00 118 03/07/17 10:00 118 24 119/79 92 03/07/17 09:00 116 24 124/85 91 03/07/17 09:00 116 I/O 03/07/17 03/07/17 03/07/17 03/08/17 03/08/17 03/08/17 06:59 14:59 22:59 06:59 14:59 22:59 Intake Total 300 ml 970 ml 200 ml Output Total 225 ml 300 ml 200 ml Balance 75 ml 670 ml 0 ml Intake Oral 300 ml 960 ml IV Total 0 ml 10 ml 200 ml Output Urine Total 225 ml 300 ml 200 ml # Voids 0 # Bowel Movements 0 0 0 Result Diagram: 03/07/17 0506 03/07/17 0506 Imaging Last Impressions Chest X-Ray 03/07/17 0600 Signed Impressions: Service Date/Time: Tuesday, March 07, 2017 05:25 - CONCLUSION: No significant change Julio Pillai MD CT Angiography 03/05/17 1517 Signed Impressions: Service Date/Time: Sunday, March 05, 2017 16:25 - CONCLUSION: Abnormal right lung. Moderate effusion and consolidation is present with pleural thickening. Neoplastic process is suspected. The right rib could be biopsied percutaneously for diagnosis. Josue Gregg MD FACR Procedures Right Chest Tube placement 03/06/17 Objective Remarks GENERAL: NAD, A&Ox3 SKIN: Warm and dry. HEAD: Normocephalic. EYES: No scleral icterus. No injection or drainage. NECK: Supple, trachea midline. No JVD or lymphadenopathy. CARDIOVASCULAR: Regular rate and rhythm without murmurs, gallops, or rubs. RESPIRATORY: Breath sounds equal bilaterally. No accessory muscle use. GASTROINTESTINAL: Abdomen soft, non-tender, nondistended. MUSCULOSKELETAL: No cyanosis, or edema. BACK: Nontender without obvious deformity. No CVA tenderness. Medications and IVs Administered Medications Medications (Trade) Dose Ordered Sig/Keena Route PRN Reason Start Time Stop Time Status Last Admin Dose Admin Aspirin (Ecotrin Ec) 81 mg MOWEFR PO 03/07/17 16:15 03/07/17 16:22 Finasteride (Proscar) 5 mg DAILY PO 03/06/17 09:00 03/07/17 10:05 Furosemide (Lasix) 20 mg DAILY PO 03/06/17 09:00 03/07/17 10:04 Metoprolol Tartrate (Lopressor) 12.5 mg BID PO 03/05/17 21:00 03/07/17 22:02 Spironolactone (Aldactone) 25 mg DAILY PO 03/06/17 09:00 03/07/17 10:04 Tamsulosin HCl (Flomax) 0.8 mg DAILY PO 03/06/17 09:00 03/07/17 10:04 Tramadol HCl (Ultram) 50 mg BID PO 03/05/17 21:00 03/07/17 22:02 Valacyclovir HCl (Valtrex) 1,000 mg DAILY PO 03/06/17 09:00 03/07/17 10:03 Pravastatin Sodium (Pravachol) 20 mg HS PO 03/05/17 21:00 03/07/17 22:02 Senna/Docusate Sodium (Brit-Colace) 1 tab BID PO 03/05/17 21:00 03/07/17 22:02 Sennosides (Senokot) 17.2 mg Q12H PRN PO MODERATE - SEVERE CONSTIPATION 03/05/17 16:15 03/07/17 22:02 Guaifenesin (Mucinex Er) 600 mg BID PO 03/05/17 21:00 03/07/17 22:02 Chlorhexidine Gluconate (Chlorhexidine 2% Cloth) 3 pack DAILY@04 TOPICAL 03/06/17 04:00 03/10/17 04:01 03/07/17 04:00 Levofloxacin (Levaquin) 750 mg DAILY PO 03/06/17 09:00 03/07/17 10:03 Metronidazole 500 mg 500 mg Q8HR PO 03/05/17 23:00 03/08/17 06:20 Cefepime HCl/ Sodium Chloride (Maxipime Inj/NS Inj) 100 ml @ 200 mls/hr Q8H IV 03/05/17 23:00 03/08/17 06:21 Sodium Chloride (NS Flush) 2 ml BID IV FLUSH 03/06/17 21:00 03/07/17 22:02 Morphine Sulfate (Morphine Inj) 2 mg Q2H PRN IV PAIN SCALE 6 TO 10 03/06/17 17:00 03/06/17 17:38 A/P Problem List: (1) DM (diabetes mellitus screen) ICD Code: Z13.1 (2) HTN (hypertension) ICD Code: I10 (3) Pneumonia involving right lung ICD Code: J18.9 (4) Lytic bone lesions on xray ICD Code: M89.9 (5) DM2 (diabetes mellitus, type 2) ICD Code: E11.9 (6) BPH (benign prostatic hyperplasia) ICD Code: N40.0 (7) COPD exacerbation ICD Code: J44.1 (8) Sepsis ICD Code: A41.9 (9) Hypoxia ICD Code: R09.02 (10) Hyperlipidemia ICD Code: E78.5 (11) Blindness ICD Code: H54.0 (12) Pleural effusion ICD Code: J90 (13) HIV (human immunodeficiency virus infection) ICD Code: Z21 (14) Admission for chest tube placement ICD Code: Z46.82 (15) Systolic and diastolic CHF, 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 Sepsis Resolved Right sided Pneumonia Continue Cefepime, Flagyl, and Levaquin Follow clinically Oxygen supplementation and wean when/as tolerated Caution given HIV status Pleural Effusion Resolved Fluid was exudative Treated with chest tube Cytology sent on fluid Joel Destruction at right rib Unlikely a manifestation of infection Following cytology from pleural effusion May need a rib bone biopsy if cytology shows no helpful evidence\ Will hold Lovenox if biopsy needed HIV No change to baseline treatment broader coverage of pneumonia is provided COPD Exacerbation (mild) Hypoxia (without oxygen) Increased risk for respiratory distress If lung biopsy is needed, this would be safer in an inpatient setting Currently there is a mild exacerbation from pneumonia Continue oxygen supplementation Wean oxygen as tolerated Systemic steroids started Continue PRN Albuterol Scheduled DuoNeb DM2 Insulin Sliding Scale Diabetic Diet Follow blood sugars Hyperlipidemia Continue statin Follow as an outpatient CHF No exacerbation No change to baseline treatment (Lasix, Spironolactone) Follow clinically HTN Continue baseline treatments (metoprolol) Follow BP Currently stable Adjust treatments if needed BPH Continue Flomax Follow clinically DVT Prophylaxis Lovenox started (hold for biopsy) Narendra Fernandez MD March 08, 2017 9:23 am
[2017-03-08] MEDS: valACYclovir HCL 500 MG TAB PO SCH (09:24)
[2017-03-08] MEDS ORDERED: predniSONE 20 MG TAB PO ONE (10:00)
[2017-03-08] MEDS: ENOXAPARIN SODIUM 40 MG/0.4 ML SYRINGE SQ SCH (11:42)
--- NOTE | 2017-03-08 19:20 | HHI.PR ---
Subjective Remarks 71 YOAA male with HIV,HTN,Pl effusion, rt rib destruction Breathing better Denies sob On Supplemental 02 Objective Vital Signs Vital Signs Date Time Temp Pulse Resp B/P Pulse Ox O2 Delivery O2 Flow Rate FiO2 03/08/17 16:27 90 Nasal Cannula 4.00 03/08/17 16:03 97.6 108 20 137/84 90 03/08/17 15:20 92 Nasal Cannula 4.00 03/08/17 12:03 96.0 95 20 111/65 92 03/08/17 12:00 92 Nasal Cannula 4.00 03/08/17 11:07 18 03/08/17 09:44 94 Nasal Cannula 4.00 03/08/17 08:00 94 Nasal Cannula 4.00 03/08/17 07:57 97.6 100 20 129/78 95 03/08/17 07:15 100 03/08/17 06:02 94 Nasal Cannula 4.00 03/08/17 05:33 97.5 99 18 111/79 94 03/08/17 01:25 91 93 03/08/17 00:47 98.0 88 20 119/79 96 03/08/17 00:20 102 03/08/17 00:20 92 Nasal Cannula 4.00 03/07/17 21:38 92 Nasal Cannula 4.00 03/07/17 20:32 96.4 102 20 119/78 93 I/O 03/07/17 03/07/17 03/07/17 03/08/17 03/08/17 03/08/17 06:59 14:59 22:59 06:59 14:59 22:59 Intake Total 300 ml 970 ml 200 ml 360 ml Output Total 225 ml 300 ml 200 ml 200 ml Balance 75 ml 670 ml 0 ml 160 ml Intake Oral 300 ml 960 ml 360 ml IV Total 0 ml 10 ml 200 ml Output Urine Total 225 ml 300 ml 200 ml 200 ml # Voids 0 # Bowel Movements 0 0 0 1 Result Diagram: 03/07/17 0506 03/07/17 0506 Objective Remarks GENERAL: MBMN AA male, NAD SKIN: Warm and dry. HEAD: Normocephalic. EYES: No scleral icterus. No injection or drainage. NECK: Supple, trachea midline. No JVD or lymphadenopathy. CARDIOVASCULAR: Regular rate and rhythm without murmurs, gallops, or rubs. RESPIRATORY: Breath sounds equal bilaterally. No accessory muscle use. GASTROINTESTINAL: Abdomen soft, non-tender, nondistended. MUSCULOSKELETAL: No cyanosis, or edema. BACK: Nontender without obvious deformity. No CVA tenderness. A/P Assessment and Plan Pleural effusion, s/p TC Pl fluid is exudative Rt rib destruction, r/o Malig HIV COPD CHF HTN PLAN: Cont Abx Wean off [address] fluid cytology If cytology neg, will need Rib bx Cytology still pending Sunday Landry MD March 08, 2017 19:20
[2017-03-08] MEDS: PRAVASTATIN SOD 20 MG TAB PO SCH (21:18)
[2017-03-08] MEDS: predniSONE 20 MG TAB PO SCH (21:22)
[2017-03-09] VITALS (11 sets, daily range): BP systolic 121–151; BP diastolic 73–93; PULSE 80–133; RESP 17–22; TEMP 95.8–99; O2SAT 88–98
[2017-03-09] MEDS: RESP: ALBUTEROL 2.5 MG/IPRATROPIUM 0.5 MG NEB (SCH) NEB ×5 (00:08→15:56)
[2017-03-09] MEDS: CHLORHEXIDINE GLUCONATE 2 % 1 PACK (2 CLOTHS)(taper/protocol) TOPICAL SCH (04:00)
[2017-03-09] MEDS: metroNIDAZOLE 500 MG TAB PO SCH ×3 (06:29→20:58)
[2017-03-09] MEDS: CEFEPIME INJ 2,000 MG in SODIUM CHLORIDE 0.9% INJ 100 ML IV SCH ×3 (06:30→23:00)
[2017-03-09] MEDS: INSULIN NovoLIN REGULAR SUPPLEMENTAL SCALE SQ SCH ×4 (06:32→20:58)
[2017-03-09 08:44] LABS: BICARBONATE 29.3 MEQ/L (21.0-32.0); MAGNESIUM 2.6 MG/DL (1.5-2.5); POTASSIUM 4.8 MEQ/L (3.5-5.1)
[2017-03-09] MEDS: predniSONE 20 MG TAB PO SCH ×2 (09:07→20:58)
[2017-03-09] MEDS: SODIUM CHLORIDE 0.9% FLUSH 10 ML FLUSH IV FLUSH SCH ×2 (09:07→20:58)
[2017-03-09] MEDS: guaiFENesin E.R. 600 MG TAB PO SCH ×2 (09:07→20:57)
[2017-03-09] MEDS: ENOXAPARIN SODIUM 40 MG/0.4 ML SYRINGE SQ SCH (09:07)
[2017-03-09] MEDS: FINASTERIDE 5 MG TAB PO SCH (09:08)
[2017-03-09] MEDS: TAMSULOSIN HCL 0.4 MG CAP PO SCH (09:08)
[2017-03-09] MEDS: traMADol HCL 50 MG TAB PO SCH ×2 (09:08→20:57)
[2017-03-09] MEDS: DOCUSATE SODIUM 50 MG/SENNA 8.6 MG TAB PO SCH ×2 (09:08→20:58)
[2017-03-09] MEDS: valACYclovir HCL 500 MG TAB PO SCH (09:08)
[2017-03-09] MEDS: LEVOFLOXACIN 750 MG TAB PO SCH (09:09)
[2017-03-09] MEDS: SPIRONOLACTONE 25 MG TAB PO SCH (09:09)
[2017-03-09] MEDS: FUROSEMIDE 20 MG TAB PO SCH (09:09)
[2017-03-09] MEDS: METOPROLOL TARTRATE 25 MG TAB PO SCH ×2 (09:09→20:57)
--- NOTE | 2017-03-09 14:41 | HHI.PR ---
Subjective Remarks Cytology is pending. No new complaints from the patient. Respiratory status is improving. Objective Vital Signs Date Time Temp Pulse Resp B/P Pulse Ox O2 Delivery O2 Flow Rate FiO2 03/09/17 12:19 97.5 96 18 127/82 88 03/09/17 10:08 17 03/09/17 08:53 92 Nasal Cannula 4.00 03/09/17 08:00 92 03/09/17 08:00 97.8 98 18 151/90 88 03/09/17 06:08 94 Nasal Cannula 4.00 03/09/17 04:37 133 03/09/17 04:00 96.0 91 20 123/93 92 03/09/17 02:20 9 Nasal Cannula 4.00 03/09/17 00:15 96 Nasal Cannula 4.00 03/09/17 00:00 95.8 94 22 151/87 92 03/08/17 21:10 92 Nasal Cannula 4.00 03/08/17 20:00 97.5 115 20 111/83 92 03/08/17 18:33 126 03/08/17 16:27 90 Nasal Cannula 4.00 03/08/17 16:03 97.6 108 20 137/84 90 03/08/17 15:20 92 Nasal Cannula 4.00 I/O 03/08/17 03/08/17 03/08/17 03/09/17 03/09/17 03/09/17 07:00 15:00 23:00 07:00 15:00 23:00 Intake Total 200 ml 480 ml 360 ml Output Total 200 ml 300 ml Balance 0 ml 180 ml 360 ml Intake Oral 480 ml 360 ml IV Total 200 ml Output Urine Total 200 ml 300 ml # Voids 0 2 4 # Bowel Movements 0 1 2 Result Diagram: 03/07/17 0506 03/09/17 0800 Procedures Right Chest Tube placement 03/06/17 Objective Remarks GENERAL: NAD, A&Ox3 SKIN: Warm and dry. HEAD: Normocephalic. EYES: No scleral icterus. No injection or drainage. NECK: Supple, trachea midline. No JVD or lymphadenopathy. CARDIOVASCULAR: Regular rate and rhythm without murmurs, gallops, or rubs. RESPIRATORY: Breath sounds equal bilaterally. No accessory muscle use. GASTROINTESTINAL: Abdomen soft, non-tender, nondistended. MUSCULOSKELETAL: No cyanosis, or edema. BACK: Nontender without obvious deformity. No CVA tenderness. A/P Problem List: (1) DM (diabetes mellitus screen) ICD Code: Z13.1 (2) HTN (hypertension) ICD Code: I10 (3) Pneumonia involving right lung ICD Code: J18.9 (4) Lytic bone lesions on xray ICD Code: M89.9 (5) DM2 (diabetes mellitus, type 2) ICD Code: E11.9 (6) BPH (benign prostatic hyperplasia) ICD Code: N40.0 (7) COPD exacerbation ICD Code: J44.1 (8) Sepsis ICD Code: A41.9 (9) Hypoxia ICD Code: R09.02 (10) Hyperlipidemia ICD Code: E78.5 (11) Blindness ICD Code: H54.0 (12) Pleural effusion ICD Code: J90 (13) HIV (human immunodeficiency virus infection) ICD Code: Z21 (14) Admission for chest tube placement ICD Code: Z46.82 (15) Systolic and diastolic CHF, 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 Cytology is pending. Potential for right rib biopsy based on cytology findings. Sepsis Resolved Right sided Pneumonia Continue Cefepime, Flagyl, and Levaquin Follow clinically Oxygen supplementation and wean when/as tolerated Caution given HIV status Pleural Effusion Resolved Fluid was exudative Treated with chest tube Cytology sent on fluid Joel Destruction at right rib Unlikely a manifestation of infection Following cytology from pleural effusion May need a rib bone biopsy if cytology shows no helpful evidence\ Will hold Lovenox if biopsy needed HIV No change to baseline treatment broader coverage of pneumonia is provided COPD Exacerbation (mild) Hypoxia (without oxygen) Increased risk for respiratory distress If lung biopsy is needed, this would be safer in an inpatient setting Currently there is a mild exacerbation from pneumonia Continue oxygen supplementation Wean oxygen as tolerated Systemic steroids started Continue PRN Albuterol Scheduled DuoNeb DM2 Insulin Sliding Scale Diabetic Diet Follow blood sugars Hyperlipidemia Continue statin Follow as an outpatient CHF No exacerbation No change to baseline treatment (Lasix, Spironolactone) Follow clinically HTN Continue baseline treatments (metoprolol) Follow BP Currently stable Adjust treatments if needed BPH Continue Flomax Follow clinically DVT Prophylaxis Lovenox started (hold for biopsy) Narendra Fernandez MD March 09, 2017 2:41 pm
[2017-03-09] MEDS: ASPIRIN EC 81 MG TABEC PO SCH (16:51)
--- NOTE | 2017-03-09 20:42 | HHI.PR ---
Subjective Remarks 71 YOAA male with HIV,HTN,Pl effusion, rt rib destruction Breathing better Denies sob On Supplemental 02 No new complaint Good appetite. Objective Vital Signs Vital Signs Date Time Temp Pulse Resp B/P Pulse Ox O2 Delivery O2 Flow Rate FiO2 03/09/17 15:52 96.9 97 17 130/83 92 03/09/17 12:19 97.5 96 18 127/82 88 03/09/17 10:08 17 03/09/17 08:53 92 Nasal Cannula 4.00 03/09/17 08:20 Nasal Cannula 4.00 Humidified 03/09/17 08:00 92 03/09/17 08:00 97.8 98 18 151/90 88 03/09/17 06:08 94 Nasal Cannula 4.00 03/09/17 04:37 133 03/09/17 04:00 96.0 91 20 123/93 92 03/09/17 02:20 9 Nasal Cannula 4.00 03/09/17 00:15 96 Nasal Cannula 4.00 03/09/17 00:00 95.8 94 22 151/87 92 03/08/17 21:10 92 Nasal Cannula 4.00 I/O 03/08/17 03/08/17 03/08/17 03/09/17 03/09/17 03/09/17 07:00 15:00 23:00 07:00 15:00 23:00 Intake Total 200 ml 480 ml 360 ml 360 ml Output Total 200 ml 300 ml Balance 0 ml 180 ml 360 ml 360 ml Intake Oral 480 ml 360 ml 360 ml IV Total 200 ml Output Urine Total 200 ml 300 ml # Voids 0 2 4 5 # Bowel Movements 0 1 2 4 Result Diagram: 03/07/17 0506 03/09/17 0800 Objective Remarks GENERAL: MBMN AA male, NAD SKIN: Warm and dry. HEAD: Normocephalic. EYES: No scleral icterus. No injection or drainage. NECK: Supple, trachea midline. No JVD or lymphadenopathy. CARDIOVASCULAR: Regular rate and rhythm without murmurs, gallops, or rubs. RESPIRATORY: Breath sounds equal bilaterally. No accessory muscle use. GASTROINTESTINAL: Abdomen soft, non-tender, nondistended. MUSCULOSKELETAL: No cyanosis, or edema. BACK: Nontender without obvious deformity. No CVA tenderness. A/P Assessment and Plan Pleural effusion, s/p TC Pl fluid is exudative Rt rib destruction, r/o Malig HIV COPD CHF HTN PLAN: Cont Abx Wean off [address] fluid cytology If cytology neg, will need Rib bx Cytology still pending Sunday Landry MD March 09, 2017 20:42
[2017-03-09] MEDS: PRAVASTATIN SOD 20 MG TAB PO SCH (20:58)
[2017-03-10] VITALS (10 sets, daily range): BP systolic 97–146; BP diastolic 70–91; PULSE 82–96; RESP 18–21; TEMP 95.7–97; O2SAT 95–97
[2017-03-10] MEDS: CHLORHEXIDINE GLUCONATE 2 % 1 PACK (2 CLOTHS)(taper/protocol) TOPICAL SCH (04:00)
[2017-03-10] MEDS: CEFEPIME INJ 2,000 MG in SODIUM CHLORIDE 0.9% INJ 100 ML IV SCH ×3 (05:43→23:02)
[2017-03-10] MEDS: metroNIDAZOLE 500 MG TAB PO SCH ×3 (05:43→21:34)
[2017-03-10] MEDS: INSULIN NovoLIN REGULAR SUPPLEMENTAL SCALE SQ SCH ×4 (05:56→20:22)
[2017-03-10] MEDS: FUROSEMIDE 20 MG TAB PO SCH (08:36)
[2017-03-10] MEDS: METOPROLOL TARTRATE 25 MG TAB PO SCH ×2 (08:37→20:20)
[2017-03-10] MEDS: guaiFENesin E.R. 600 MG TAB PO SCH ×2 (08:37→20:18)
[2017-03-10] MEDS: predniSONE 20 MG TAB PO SCH ×2 (08:37→20:19)
[2017-03-10] MEDS: LEVOFLOXACIN 750 MG TAB PO SCH (08:37)
[2017-03-10] MEDS: SPIRONOLACTONE 25 MG TAB PO SCH (08:38)
[2017-03-10] MEDS: traMADol HCL 50 MG TAB PO SCH ×2 (08:38→20:22)
[2017-03-10] MEDS: valACYclovir HCL 500 MG TAB PO SCH (08:38)
[2017-03-10] MEDS: FINASTERIDE 5 MG TAB PO SCH (08:38)
[2017-03-10] MEDS: TAMSULOSIN HCL 0.4 MG CAP PO SCH (08:40)
[2017-03-10] MEDS: DOCUSATE SODIUM 50 MG/SENNA 8.6 MG TAB PO SCH ×2 (08:41→20:19)
[2017-03-10] MEDS: SODIUM CHLORIDE 0.9% FLUSH 10 ML FLUSH IV FLUSH SCH ×2 (08:56→20:22)
[2017-03-10] MEDS: ENOXAPARIN SODIUM 40 MG/0.4 ML SYRINGE SQ SCH (10:09)
--- NOTE | 2017-03-10 10:42 | HHI.PR ---
Subjective Remarks Cytology is still pending. Patient had a bowel movement today. No new complaints. Objective Vital Signs Date Time Temp Pulse Resp B/P Pulse Ox O2 Delivery O2 Flow Rate FiO2 03/10/17 08:38 96 Nasal Cannula 4.00 03/10/17 08:00 96.8 92 20 133/84 96 03/10/17 05:00 82 18 146/82 97 03/10/17 04:00 96.9 88 20 133/91 96 03/10/17 01:27 Room Air 03/10/17 00:00 97.0 95 18 127/70 97 03/09/17 21:31 95 Nasal Cannula 4.00 03/09/17 19:30 97.7 97 18 131/79 94 03/09/17 15:52 96.9 97 17 130/83 92 03/09/17 12:19 97.5 96 18 127/82 88 I/O 03/09/17 03/09/17 03/09/17 03/10/17 03/10/17 03/10/17 07:00 15:00 23:00 07:00 15:00 23:00 Intake Total 360 ml 360 ml 500 ml Balance 360 ml 360 ml 500 ml Intake Oral 360 ml 360 ml IV Total 500 ml # Voids 4 5 2 # Bowel Movements 2 4 1 Result Diagram: 03/07/17 0506 03/09/17 0800 Procedures Right Chest Tube placement 03/06/17 Objective Remarks GENERAL: NAD, A&Ox3 SKIN: Warm and dry. HEAD: Normocephalic. EYES: No scleral icterus. No injection or drainage. NECK: Supple, trachea midline. No JVD or lymphadenopathy. CARDIOVASCULAR: Regular rate and rhythm without murmurs, gallops, or rubs. RESPIRATORY: Breath sounds equal bilaterally. No accessory muscle use. GASTROINTESTINAL: Abdomen soft, non-tender, nondistended. MUSCULOSKELETAL: No cyanosis, or edema. BACK: Nontender without obvious deformity. No CVA tenderness. A/P Problem List: (1) DM (diabetes mellitus screen) ICD Code: Z13.1 (2) HTN (hypertension) ICD Code: I10 (3) Pneumonia involving right lung ICD Code: J18.9 (4) Lytic bone lesions on xray ICD Code: M89.9 (5) DM2 (diabetes mellitus, type 2) ICD Code: E11.9 (6) BPH (benign prostatic hyperplasia) ICD Code: N40.0 (7) COPD exacerbation ICD Code: J44.1 (8) Sepsis ICD Code: A41.9 (9) Hypoxia ICD Code: R09.02 (10) Hyperlipidemia ICD Code: E78.5 (11) Blindness ICD Code: H54.0 (12) Pleural effusion ICD Code: J90 (13) HIV (human immunodeficiency virus infection) ICD Code: Z21 (14) Admission for chest tube placement ICD Code: Z46.82 (15) Systolic and diastolic CHF, 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 Bowel movements are present. No new complaints. Cytology is pending. Right lung biopsy planned if cytology is negative. Sepsis Resolved Right sided Pneumonia Continue Cefepime, Flagyl, and Levaquin Follow clinically Oxygen supplementation and wean when/as tolerated Caution given HIV status Pleural Effusion Resolved Fluid was exudative Treated with chest tube Cytology sent on fluid Joel Destruction at right rib Unlikely a manifestation of infection Following cytology from pleural effusion May need a rib bone biopsy if cytology shows no helpful evidence\ Will hold Lovenox if biopsy needed HIV No change to baseline treatment broader coverage of pneumonia is provided COPD Exacerbation (mild) Hypoxia (without oxygen) Increased risk for respiratory distress If lung biopsy is needed, this would be safer in an inpatient setting Currently there is a mild exacerbation from pneumonia Continue oxygen supplementation Wean oxygen as tolerated Systemic steroids started Continue PRN Albuterol Scheduled DuoNeb DM2 Insulin Sliding Scale Diabetic Diet Follow blood sugars Hyperlipidemia Continue statin Follow as an outpatient CHF No exacerbation No change to baseline treatment (Lasix, Spironolactone) Follow clinically HTN Continue baseline treatments (metoprolol) Follow BP Currently stable Adjust treatments if needed BPH Continue Flomax Follow clinically DVT Prophylaxis Lovenox started (hold for biopsy) Narendra Fernandez MD Mar 10, 2017 10:42
--- NOTE | 2017-03-10 20:04 | HHI.PR ---
Subjective Remarks 71 YOAA male with HIV,HTN,Pl effusion, rt rib destruction Breathing better Denies sob On Supplemental 02 No new complaint Good appetite. Cytology of pl fluid neg Objective Vital Signs Vital Signs Date Time Temp Pulse Resp B/P Pulse Ox O2 Delivery O2 Flow Rate FiO2 03/10/17 16:00 96.9 96 20 125/82 96 03/10/17 12:00 97.0 92 21 117/78 95 03/10/17 08:38 96 Nasal Cannula 4.00 03/10/17 08:00 88 03/10/17 08:00 96.8 92 20 133/84 96 03/10/17 05:00 82 18 146/82 97 03/10/17 04:00 96.9 88 20 133/91 96 03/10/17 01:27 Room Air 03/10/17 00:00 97.0 95 18 127/70 97 03/09/17 21:31 95 Nasal Cannula 4.00 I/O 03/09/17 03/09/17 03/09/17 03/10/17 03/10/17 03/10/17 06:59 14:59 22:59 06:59 14:59 22:59 Intake Total 360 ml 360 ml 500 ml Balance 360 ml 360 ml 500 ml Intake Oral 360 ml 360 ml IV Total 500 ml # Voids 4 5 2 # Bowel Movements 2 4 1 Result Diagram: 03/07/17 0506 03/09/17 0800 Objective Remarks GENERAL: MBMN AA male, NAD SKIN: Warm and dry. HEAD: Normocephalic. EYES: No scleral icterus. No injection or drainage. NECK: Supple, trachea midline. No JVD or lymphadenopathy. CARDIOVASCULAR: Regular rate and rhythm without murmurs, gallops, or rubs. RESPIRATORY: Breath sounds equal bilaterally. No accessory muscle use. GASTROINTESTINAL: Abdomen soft, non-tender, nondistended. MUSCULOSKELETAL: No cyanosis, or edema. BACK: Nontender without obvious deformity. No CVA tenderness. A/P Assessment and Plan Pleural effusion, s/p TC Pl fluid is exudative Rt rib destruction, r/o Malig HIV COPD CHF HTN PLAN: Cont Abx Wean off 02 CT guided right 6 th rib bx DW Pt Sunday Landry MD Mar 10, 2017 20:04
[2017-03-10] MEDS: PRAVASTATIN SOD 20 MG TAB PO SCH (20:19)
[2017-03-10 20:48] LABS: BASOPHIL % 0.1 % (0.0-2.0); HEMATOCRIT 38.7 % (39.0-51.0); HEMO FLAGS DIFF FINAL; LYMPH % 4.5 % (9.0-44.0); LYMPHOCYTE # 0.5 TH/MM3 (1.0-4.8); MEAN CELL VOLUME 78.3 FL (80.0-100.0); MEAN CORPUSCULAR HEMOGLOBIN 23.5 PG (27.0-34.0); MEAN CORPUSCULAR HGB CONC 30.1 % (32.0-36.0); MONO % 10.2 % (0.0-8.0); NEUT % 85.2 % (16.0-70.0); PLATELET COUNT 289 TH/MM3 (150-450); RED BLOOD COUNT 4.95 MIL/MM3 (4.50-5.90); RED CELL DISTRIBUTION WIDTH 16.1 % (11.6-17.2); WHITE BLOOD COUNT 11.7 TH/MM3 (4.0-11.0)
[2017-03-10 21:04] LABS: APTT (PATIENT) 29.2 SEC (24.3-30.1); INTERNATIONAL NORMALIZED RATIO 1.3 RATIO
[2017-03-11] VITALS (11 sets, daily range): BP systolic 112–159; BP diastolic 57–92; PULSE 75–100; RESP 16–20; TEMP 95.7–97.8; O2SAT 87–98
[2017-03-11] MEDS: INSULIN NovoLIN REGULAR SUPPLEMENTAL SCALE SQ SCH ×4 (05:50→21:00)
[2017-03-11] MEDS: metroNIDAZOLE 500 MG TAB PO SCH ×3 (06:23→22:30)
[2017-03-11] MEDS: CEFEPIME INJ 2,000 MG in SODIUM CHLORIDE 0.9% INJ 100 ML IV SCH ×3 (06:23→22:31)
[2017-03-11] MEDS: DOCUSATE SODIUM 50 MG/SENNA 8.6 MG TAB PO SCH ×2 (09:00→21:00)
[2017-03-11] MEDS: TAMSULOSIN HCL 0.4 MG CAP PO SCH (09:00)
[2017-03-11] MEDS ORDERED: LIDOCAINE HCL 1% 20 ML VIAL ONE (09:59)
[2017-03-11] MEDS ORDERED: MIDAZOLAM HCL 5 MG/5 ML VIAL ONE (10:01)
[2017-03-11] MEDS ORDERED: fentaNYL CITRATE 250 MCG/5 ML AMP ONE (10:01)
--- NOTE | 2017-03-11 12:30 | RADRPT ---
EXAM DATE/TIME: 03/11/2017 10:16 [facility] COMPARISON: No previous studies available for comparison. INDICATIONS : Destruction of the sixth rib. SEDATION TIME: 30 minutes BIOPSY SITE: Right anterior chest. MEDICATION(S): 1.) 2 mg midazolam (Versed) IV 2.) 100 mcg fentanyl (Sublimaze) IV DEVICE(S): 1.) 18 gauge BioPince needle MEDICAL HISTORY : HIV. Hypertension. Chronic obstructive pulmonary disease. Diabetes. SURGICAL HISTORY : None. ENCOUNTER: Initial ACUITY: 1 day PAIN SCORE: 0/10 LOCATION: Right chest A total of three core specimen(s) were obtained and sent to the laboratory for pathologic evaluation. PROCEDURE: 1. CT guided chest wall, right rib biopsy. Prior to the procedure informed consent was obtained. Any appropriate prior imaging studies were rev iewed. Using automated exposure control and adjustment of the mA and/or kV according to patient size, radiat ion dose was kept as low as reasonably achievable to obtain optimal diagnostic quality images. The site was prepped in a sterile fashion. Full sterile technique was used, including cap, mask, isabella rile gloves and gown and a large sterile sheet. Hand hygiene and 2% chlorhexidine and/or betadine/al cohol prep was utilized per protocol for cutaneous antisepsis. The skin and subcutaneous tissues wer e infiltrated with local anesthetic solution. With CT guidance the previously identified target was localized. Biopsy was performed using the presc ribed needle as above. Adequate hemostasis was obtained with compression at the puncture site. Follow-up CT scan reveals no hemorrhage. The patient tolerated the procedure well and there were no complications. The patient was returned to the Radiology Outpatient Unit in stable condition. CONCLUSION: Uncomplicated CT guided right chest wall/rib biopsy. Josue Gregg MD FACR on March 11, 2017 at 12:17 Board Certified Radiologist. This report was verified electronically.
[2017-03-11] MEDS: traMADol HCL 50 MG TAB PO SCH ×2 (13:37→22:30)
[2017-03-11] MEDS: SODIUM CHLORIDE 0.9% FLUSH 10 ML FLUSH IV FLUSH SCH ×2 (13:38→22:35)
[2017-03-11] MEDS: LEVOFLOXACIN 750 MG TAB PO SCH (13:39)
[2017-03-11] MEDS: SPIRONOLACTONE 25 MG TAB PO SCH (13:39)
[2017-03-11] MEDS: predniSONE 20 MG TAB PO SCH ×2 (13:39→22:31)
[2017-03-11] MEDS: guaiFENesin E.R. 600 MG TAB PO SCH ×2 (13:40→22:29)
[2017-03-11] MEDS: valACYclovir HCL 500 MG TAB PO SCH (13:40)
[2017-03-11] MEDS: SENNOSIDES 8.6 MG TAB PO PRN (13:40)
[2017-03-11] MEDS: FINASTERIDE 5 MG TAB PO SCH (13:41)
[2017-03-11] MEDS: FUROSEMIDE 20 MG TAB PO SCH (13:42)
[2017-03-11] MEDS: ASPIRIN EC 81 MG TABEC PO SCH (13:43)
[2017-03-11] MEDS: METOPROLOL TARTRATE 25 MG TAB PO SCH ×2 (13:43→22:31)
[2017-03-11] MEDS: ENOXAPARIN SODIUM 40 MG/0.4 ML SYRINGE SQ SCH (13:45)
[2017-03-11] MEDS: ACETAMINOPHEN/HYDROcodone 325 MG/5 MG TAB PO PRN (13:45)
--- NOTE | 2017-03-11 14:47 | RADRPT ---
EXAM DATE/TIME: 03/11/2017 13:29 [facility] COMPARISON: CHEST SINGLE AP, March 07, 2017, 5:25. INDICATIONS : Post right side biopsy. MEDICAL HISTORY : Chronic obstructive pulmonary disease. Hypertension HIV. diabetes. SURGICAL HISTORY : None. ENCOUNTER: Initial ACUITY: 4 - 6 days PAIN SCORE: 0/10 LOCATION: Bilateral chest FINDINGS: Single AP view of the chest. Right-sided pleural effusion and consolidation/atelectasis unchanged. No evidence of pneumothorax. CONCLUSION: No significant neural change. No evidence of pneumothorax. Bonifacio Rhodes MD on March 11, 2017 at 14:44 Board Certified Radiologist. This report was verified electronically.
--- NOTE | 2017-03-11 15:39 | HHI.PR ---
Subjective Remarks Cytology is negative. Rebiopsy ordered and performed this morning. Patient tolerated the procedure well and is doing well after the procedure. Objective Vital Signs Date Time Temp Pulse Resp B/P Pulse Ox O2 Delivery O2 Flow Rate FiO2 03/11/17 14:00 Nasal Cannula 4.00 03/11/17 12:53 91 Nasal Cannula 4.00 Humidified 03/11/17 11:30 89 Nasal Cannula 4.00 Humidified 03/11/17 11:30 100 16 125/92 91 03/11/17 11:20 89 Nasal Cannula 4.00 Humidified 03/11/17 11:20 97 16 130/86 89 03/11/17 11:05 97.6 75 18 143/85 87 03/11/17 11:05 89 Nasal Cannula 4.00 Humidified 03/11/17 11:05 90 Nasal Cannula 4.00 Humidified 03/11/17 08:00 96.3 87 18 136/84 96 03/11/17 04:00 95.9 83 18 137/88 97 03/11/17 00:07 95.7 86 18 159/89 97 03/11/17 00:00 97.8 81 20 140/57 97 03/10/17 20:17 96.8 86 139/86 03/10/17 20:05 96 Nasal Cannula 3.00 03/10/17 20:00 95.7 86 18 97/72 95 03/10/17 19:15 Nasal Cannula 4.00 Humidified 03/10/17 16:00 96.9 96 20 125/82 96 I/O 03/10/17 03/10/17 03/10/17 03/11/17 03/11/17 03/11/17 07:00 15:00 23:00 07:00 15:00 23:00 Intake Total 500 ml Output Total 900 ml Balance 500 ml -900 ml IV Total 500 ml Output Urine Total 900 ml # Voids 2 # Bowel Movements 1 1 Result Diagram: 03/10/17202103/09/17 0800 Procedures Right Chest Tube placement 03/06/17 Objective Remarks GENERAL: NAD, A&Ox3 SKIN: Warm and dry. HEAD: Normocephalic. EYES: No scleral icterus. No injection or drainage. NECK: Supple, trachea midline. No JVD or lymphadenopathy. CARDIOVASCULAR: Regular rate and rhythm without murmurs, gallops, or rubs. RESPIRATORY: Breath sounds equal bilaterally. No accessory muscle use. GASTROINTESTINAL: Abdomen soft, non-tender, nondistended. MUSCULOSKELETAL: No cyanosis, or edema. BACK: Nontender without obvious deformity. No CVA tenderness. A/P Problem List: (1) DM (diabetes mellitus screen) ICD Code: Z13.1 (2) HTN (hypertension) ICD Code: I10 (3) Pneumonia involving right lung ICD Code: J18.9 (4) Lytic bone lesions on xray ICD Code: M89.9 (5) DM2 (diabetes mellitus, type 2) ICD Code: E11.9 (6) BPH (benign prostatic hyperplasia) ICD Code: N40.0 (7) COPD exacerbation ICD Code: J44.1 (8) Sepsis ICD Code: A41.9 (9) Hypoxia ICD Code: R09.02 (10) Hyperlipidemia ICD Code: E78.5 (11) Blindness ICD Code: H54.0 (12) Pleural effusion ICD Code: J90 (13) HIV (human immunodeficiency virus infection) ICD Code: Z21 (14) Admission for chest tube placement ICD Code: Z46.82 (15) Systolic and diastolic CHF, 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 Cytology evaluation was within normal limits. Rib biopsy obtained. Sepsis Resolved Right sided Pneumonia Continue Cefepime, Flagyl, and Levaquin Follow clinically Oxygen supplementation and wean when/as tolerated Caution given HIV status Pleural Effusion Resolved Fluid was exudative Treated with chest tube Cytology sent on fluid Joel Destruction at right rib Unlikely a manifestation of infection Following cytology from pleural effusion May need a rib bone biopsy if cytology shows no helpful evidence\ Will hold Lovenox if biopsy needed HIV No change to baseline treatment broader coverage of pneumonia is provided COPD Exacerbation (mild) Hypoxia (without oxygen) Increased risk for respiratory distress If lung biopsy is needed, this would be safer in an inpatient setting Currently there is a mild exacerbation from pneumonia Continue oxygen supplementation Wean oxygen as tolerated Systemic steroids started Continue PRN Albuterol Scheduled DuoNeb DM2 Insulin Sliding Scale Diabetic Diet Follow blood sugars Hyperlipidemia Continue statin Follow as an outpatient CHF No exacerbation No change to baseline treatment (Lasix, Spironolactone) Follow clinically HTN Continue baseline treatments (metoprolol) Follow BP Currently stable Adjust treatments if needed BPH Continue Flomax Follow clinically DVT Prophylaxis Lovenox started (hold for biopsy) Narendra Fernandez MD Mar 11, 2017 3:39 pm
--- NOTE | 2017-03-11 18:37 | HHI.PR ---
Subjective Remarks 71 YOAA male with HIV,HTN,Pl effusion, rt rib destruction Breathing better Denies sob On Supplemental 02 No new complaint Good appetite. Had Rib bx Objective Vital Signs Vital Signs Date Time Temp Pulse Resp B/P Pulse Ox O2 Delivery O2 Flow Rate FiO2 03/11/17 16:06 96.1 96 20 112/74 95 03/11/17 14:00 Nasal Cannula 4.00 03/11/17 12:53 91 Nasal Cannula 4.00 Humidified 03/11/17 11:30 89 Nasal Cannula 4.00 Humidified 03/11/17 11:30 100 16 125/92 91 03/11/17 11:20 89 Nasal Cannula 4.00 Humidified 03/11/17 11:20 97 16 130/86 89 03/11/17 11:05 97.6 75 18 143/85 87 03/11/17 11:05 89 Nasal Cannula 4.00 Humidified 03/11/17 11:05 90 Nasal Cannula 4.00 Humidified 03/11/17 08:00 96.3 87 18 136/84 96 03/11/17 04:00 95.9 83 18 137/88 97 03/11/17 00:07 95.7 86 18 159/89 97 03/11/17 00:00 97.8 81 20 140/57 97 03/10/17 20:17 96.8 86 139/86 03/10/17 20:05 96 Nasal Cannula 3.00 03/10/17 20:00 95.7 86 18 97/72 95 03/10/17 19:15 Nasal Cannula 4.00 Humidified I/O 03/10/17 03/10/17 03/10/17 03/11/17 03/11/17 03/11/17 07:00 15:00 23:00 07:00 15:00 23:00 Intake Total 500 ml Output Total 900 ml Balance 500 ml -900 ml IV Total 500 ml Output Urine Total 900 ml # Voids 2 # Bowel Movements 1 1 Result Diagram: 03/10/17202103/09/17 0800 Objective Remarks GENERAL: MBMN AA male, NAD SKIN: Warm and dry. HEAD: Normocephalic. EYES: No scleral icterus. No injection or drainage. NECK: Supple, trachea midline. No JVD or lymphadenopathy. CARDIOVASCULAR: Regular rate and rhythm without murmurs, gallops, or rubs. RESPIRATORY: Breath sounds equal bilaterally. No accessory muscle use. GASTROINTESTINAL: Abdomen soft, non-tender, nondistended. MUSCULOSKELETAL: No cyanosis, or edema. BACK: Nontender without obvious deformity. No CVA tenderness. A/P Assessment and Plan Pleural effusion, s/p TC Pl fluid is exudative Rt rib destruction, r/o Malig HIV COPD CHF HTN PLAN: Cont Abx Wean off 02 DW Pt Check bx result Sunday Landry MD Mar 11, 2017 18:37
[2017-03-11] MEDS: PRAVASTATIN SOD 20 MG TAB PO SCH (22:30)
[2017-03-12] VITALS (10 sets, daily range): BP systolic 113–163; BP diastolic 73–89; PULSE 75–98; RESP 18–20; TEMP 95.1–98.1; O2SAT 93–98
[2017-03-12] MEDS: metroNIDAZOLE 500 MG TAB PO SCH ×2 (06:07→13:04)
[2017-03-12] MEDS: CEFEPIME INJ 2,000 MG in SODIUM CHLORIDE 0.9% INJ 100 ML IV SCH ×2 (06:08→14:40)
[2017-03-12] MEDS: INSULIN NovoLIN REGULAR SUPPLEMENTAL SCALE SQ SCH ×4 (06:22→20:30)
[2017-03-12 08:54] LABS: HEMATOCRIT 38.9 % (39.0-51.0); MEAN CELL VOLUME 78.4 FL (80.0-100.0); MEAN CORPUSCULAR HEMOGLOBIN 24.2 PG (27.0-34.0); MEAN CORPUSCULAR HGB CONC 30.9 % (32.0-36.0); PLATELET COUNT 293 TH/MM3 (150-450); RED BLOOD COUNT 4.96 MIL/MM3 (4.50-5.90); RED CELL DISTRIBUTION WIDTH 16.8 % (11.6-17.2); REVIEW FLAG FINAL; WHITE BLOOD COUNT 9.5 TH/MM3 (4.0-11.0)
[2017-03-12] MEDS: SODIUM CHLORIDE 0.9% FLUSH 10 ML FLUSH IV FLUSH SCH ×2 (09:00→20:34)
[2017-03-12] MEDS: DOCUSATE SODIUM 50 MG/SENNA 8.6 MG TAB PO SCH ×2 (09:00→20:28)
--- NOTE | 2017-03-12 09:15 | HHI.PR ---
Subjective Remarks Patient doing well postprocedure yesterday. No new complaints today. Oxygen wean as an process. He remains oxygen dependent for now. Respiratory status has improved since admit. Pathology of rib biopsy is pending. Objective Vital Signs Date Time Temp Pulse Resp B/P Pulse Ox O2 Delivery O2 Flow Rate FiO2 03/12/17 08:00 97.2 98 20 127/73 94 03/12/17 04:40 96.5 81 18 136/82 97 03/12/17 01:00 95.1 75 18 129/81 98 03/11/17 22:25 92 21 03/11/17 22:24 93 Nasal Cannula 4.00 03/11/17 20:00 97.2 79 18 127/81 98 03/11/17 19:15 Nasal Cannula 4.00 Humidified 03/11/17 16:06 96.1 96 20 112/74 95 03/11/17 14:00 Nasal Cannula 4.00 03/11/17 12:53 91 Nasal Cannula 4.00 Humidified 03/11/17 11:30 89 Nasal Cannula 4.00 Humidified 03/11/17 11:30 100 16 125/92 91 03/11/17 11:20 89 Nasal Cannula 4.00 Humidified 03/11/17 11:20 97 16 130/86 89 03/11/17 11:05 97.6 75 18 143/85 87 03/11/17 11:05 89 Nasal Cannula 4.00 Humidified 03/11/17 11:05 90 Nasal Cannula 4.00 Humidified I/O 03/11/17 03/11/17 03/11/17 03/12/17 03/12/17 03/12/17 07:00 15:00 23:00 07:00 15:00 23:00 Output Total 900 ml 940 ml Balance -900 ml -940 ml Output Urine Total 900 ml 940 ml # Voids 5 # Bowel Movements 1 1 2 Result Diagram: 03/12/17 0722 03/09/17 0800 Procedures Right Chest Tube placement 03/06/17 Objective Remarks GENERAL: NAD, A&Ox3 SKIN: Warm and dry. HEAD: Normocephalic. EYES: No scleral icterus. No injection or drainage. NECK: Supple, trachea midline. No JVD or lymphadenopathy. CARDIOVASCULAR: Regular rate and rhythm without murmurs, gallops, or rubs. RESPIRATORY: Breath sounds equal bilaterally. No accessory muscle use. GASTROINTESTINAL: Abdomen soft, non-tender, nondistended. MUSCULOSKELETAL: No cyanosis, or edema. BACK: Nontender without obvious deformity. No CVA tenderness. A/P Problem List: (1) DM (diabetes mellitus screen) ICD Code: Z13.1 (2) HTN (hypertension) ICD Code: I10 (3) Pneumonia involving right lung ICD Code: J18.9 (4) Lytic bone lesions on xray ICD Code: M89.9 (5) DM2 (diabetes mellitus, type 2) ICD Code: E11.9 (6) BPH (benign prostatic hyperplasia) ICD Code: N40.0 (7) COPD exacerbation ICD Code: J44.1 (8) Sepsis ICD Code: A41.9 (9) Hypoxia ICD Code: R09.02 (10) Hyperlipidemia ICD Code: E78.5 (11) Blindness ICD Code: H54.0 (12) Pleural effusion ICD Code: J90 (13) HIV (human immunodeficiency virus infection) ICD Code: Z21 (14) Admission for chest tube placement ICD Code: Z46.82 (15) Systolic and diastolic CHF, 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 Rib biopsy obtained yesterday. Following pathology. Now attempting to wean off oxygen. Sepsis Resolved Right sided Pneumonia Continue Cefepime, Flagyl, and Levaquin Follow clinically Oxygen supplementation and wean when/as tolerated Caution given HIV status Pleural Effusion Resolved Fluid was exudative Treated with chest tube Cytology was negative Joel Destruction at right rib Unlikely a manifestation of infection Following rib biopsy HIV No change to baseline treatment broader coverage of pneumonia is provided COPD Exacerbation (mild) Hypoxia (without oxygen) Increased risk for respiratory distress If lung biopsy is needed, this would be safer in an inpatient setting Currently there is a mild exacerbation from pneumonia Continue oxygen supplementation Wean oxygen as tolerated Systemic steroids started Continue PRN Albuterol Scheduled DuoNeb DM2 Insulin Sliding Scale Diabetic Diet Follow blood sugars Hyperlipidemia Continue statin Follow as an outpatient CHF No exacerbation No change to baseline treatment (Lasix, Spironolactone) Follow clinically HTN Continue baseline treatments (metoprolol) Follow BP Currently stable Adjust treatments if needed BPH Continue Flomax Follow clinically DVT Prophylaxis Lovenox started (hold for biopsy) Narendra Fernandez MD Mar 12, 2017 09:15
[2017-03-12] MEDS: valACYclovir HCL 500 MG TAB PO SCH (10:21)
[2017-03-12] MEDS: FUROSEMIDE 20 MG TAB PO SCH (10:22)
[2017-03-12] MEDS: TAMSULOSIN HCL 0.4 MG CAP PO SCH (10:22)
[2017-03-12] MEDS: predniSONE 20 MG TAB PO SCH ×2 (10:22→20:28)
[2017-03-12] MEDS: traMADol HCL 50 MG TAB PO SCH ×2 (10:22→20:29)
[2017-03-12] MEDS: guaiFENesin E.R. 600 MG TAB PO SCH ×2 (10:22→20:30)
[2017-03-12] MEDS: LEVOFLOXACIN 750 MG TAB PO SCH (10:23)
[2017-03-12] MEDS: FINASTERIDE 5 MG TAB PO SCH (10:23)
[2017-03-12] MEDS: SPIRONOLACTONE 25 MG TAB PO SCH (10:23)
[2017-03-12] MEDS: METOPROLOL TARTRATE 25 MG TAB PO SCH ×2 (10:24→20:28)
--- NOTE | 2017-03-12 13:58 | HHI.PR ---
Subjective Remarks 71 YOAA male with HIV,HTN,Pl effusion, rt rib destruction Breathing better Denies sob No new complaint Good appetite. Had Rib bx Objective Vital Signs Vital Signs Date Time Temp Pulse Resp B/P Pulse Ox O2 Delivery O2 Flow Rate FiO2 03/12/17 12:00 97.8 84 20 113/76 94 03/12/17 08:00 97.2 98 20 127/73 94 03/12/17 04:40 96.5 81 18 136/82 97 03/12/17 01:00 95.1 75 18 129/81 98 03/11/17 22:25 92 21 03/11/17 22:24 93 Nasal Cannula 4.00 03/11/17 20:00 97.2 79 18 127/81 98 03/11/17 19:15 Nasal Cannula 4.00 Humidified 03/11/17 16:06 96.1 96 20 112/74 95 03/11/17 14:00 Nasal Cannula 4.00 I/O 03/11/17 03/11/17 03/11/17 03/12/17 03/12/17 03/12/17 07:00 15:00 23:00 07:00 15:00 23:00 Output Total 900 ml 940 ml Balance -900 ml -940 ml Output Urine Total 900 ml 940 ml # Voids 5 # Bowel Movements 1 1 2 Result Diagram: 03/12/17 0722 03/12/17 0722 Objective Remarks GENERAL: MBMN AA male, NAD SKIN: Warm and dry. HEAD: Normocephalic. EYES: No scleral icterus. No injection or drainage. NECK: Supple, trachea midline. No JVD or lymphadenopathy. CARDIOVASCULAR: Regular rate and rhythm without murmurs, gallops, or rubs. RESPIRATORY: Breath sounds equal bilaterally. No accessory muscle use. GASTROINTESTINAL: Abdomen soft, non-tender, nondistended. MUSCULOSKELETAL: No cyanosis, or edema. BACK: Nontender without obvious deformity. No CVA tenderness. A/P Assessment and Plan Pleural effusion, s/p TC Pl fluid is exudative Rt rib destruction, r/o Malig HIV COPD CHF HTN PLAN: Cont Abx Wean off 02 DW Pt Check bx result Sunday Landry MD Mar 12, 2017 13:58
[2017-03-12] MEDS: PRAVASTATIN SOD 20 MG TAB PO SCH (20:28)
[2017-03-13] VITALS (10 sets, daily range): BP systolic 135–165; BP diastolic 80–92; PULSE 81–97; RESP 16–20; TEMP 97.1–98.1; O2SAT 95–99
[2017-03-13] MEDS: metroNIDAZOLE 500 MG TAB PO SCH ×4 (02:14→21:42)
[2017-03-13] MEDS: CEFEPIME INJ 2,000 MG in SODIUM CHLORIDE 0.9% INJ 100 ML IV SCH ×4 (02:15→22:59)
[2017-03-13] MEDS: INSULIN NovoLIN REGULAR SUPPLEMENTAL SCALE SQ SCH ×4 (07:00→21:56)
[2017-03-13] MEDS: guaiFENesin E.R. 600 MG TAB PO SCH ×2 (09:00→21:41)
[2017-03-13] MEDS: DOCUSATE SODIUM 50 MG/SENNA 8.6 MG TAB PO SCH ×2 (09:00→21:38)
[2017-03-13] MEDS: SODIUM CHLORIDE 0.9% FLUSH 10 ML FLUSH IV FLUSH SCH ×2 (09:00→21:46)
[2017-03-13] MEDS: ENOXAPARIN SODIUM 40 MG/0.4 ML SYRINGE SQ SCH (09:17)
[2017-03-13] MEDS: valACYclovir HCL 500 MG TAB PO SCH (09:18)
[2017-03-13] MEDS: TAMSULOSIN HCL 0.4 MG CAP PO SCH (09:19)
[2017-03-13] MEDS: traMADol HCL 50 MG TAB PO SCH ×2 (09:19→21:45)
[2017-03-13] MEDS: SPIRONOLACTONE 25 MG TAB PO SCH (09:20)
[2017-03-13] MEDS: FUROSEMIDE 20 MG TAB PO SCH (09:20)
[2017-03-13] MEDS: FINASTERIDE 5 MG TAB PO SCH (09:20)
[2017-03-13] MEDS: predniSONE 20 MG TAB PO SCH ×2 (09:22→21:42)
[2017-03-13] MEDS: METOPROLOL TARTRATE 25 MG TAB PO SCH ×2 (09:23→21:41)
[2017-03-13] MEDS: LEVOFLOXACIN 750 MG TAB PO SCH (09:23)
--- NOTE | 2017-03-13 10:40 | HHI.PR ---
Subjective Remarks No changes in the patient. Oxygen continues to attempt to be weaned. No new complaints from the patient. Biopsy results pending. Objective Vital Signs Date Time Temp Pulse Resp B/P Pulse Ox O2 Delivery O2 Flow Rate FiO2 03/13/17 10:08 97 Nasal Cannula 2.00 03/13/17 08:00 97.1 81 16 140/87 95 03/13/17 07:30 Nasal Cannula 4.00 03/13/17 05:30 98.0 86 19 165/92 96 03/13/17 00:30 97.7 88 20 152/80 96 03/12/17 21:00 78 03/12/17 20:50 96 Nasal Cannula 4.00 03/12/17 20:50 98.0 87 19 163/89 95 03/12/17 20:45 98.0 87 19 163/89 95 03/12/17 15:31 98.1 93 20 121/74 93 03/12/17 12:00 97.8 84 20 113/76 94 I/O 03/12/17 03/12/17 03/12/17 03/13/17 03/13/17 03/13/17 07:00 15:00 23:00 07:00 15:00 23:00 Intake Total 800 ml 850 ml Output Total 940 ml 801 ml 600 ml 400 ml Balance -940 ml -801 ml 200 ml 450 ml Intake Oral 800 ml 850 ml Output Urine Total 940 ml 800 ml 600 ml 400 ml Stool Total 1 ml # Voids 2 # Bowel Movements 2 1 0 Result Diagram: 03/12/1722 03/12/17 0722 Procedures Right Chest Tube placement 03/06/17 Objective Remarks GENERAL: NAD, A&Ox3 SKIN: Warm and dry. HEAD: Normocephalic. EYES: No scleral icterus. No injection or drainage. NECK: Supple, trachea midline. No JVD or lymphadenopathy. CARDIOVASCULAR: Regular rate and rhythm without murmurs, gallops, or rubs. RESPIRATORY: Breath sounds equal bilaterally. No accessory muscle use. GASTROINTESTINAL: Abdomen soft, non-tender, nondistended. MUSCULOSKELETAL: No cyanosis, or edema. BACK: Nontender without obvious deformity. No CVA tenderness. A/P Problem List: (1) DM (diabetes mellitus screen) ICD Code: Z13.1 (2) HTN (hypertension) ICD Code: I10 (3) Pneumonia involving right lung ICD Code: J18.9 (4) Lytic bone lesions on xray ICD Code: M89.9 (5) DM2 (diabetes mellitus, type 2) ICD Code: E11.9 (6) BPH (benign prostatic hyperplasia) ICD Code: N40.0 (7) COPD exacerbation ICD Code: J44.1 (8) Sepsis ICD Code: A41.9 (9) Hypoxia ICD Code: R09.02 (10) Hyperlipidemia ICD Code: E78.5 (11) Blindness ICD Code: H54.0 (12) Pleural effusion ICD Code: J90 (13) HIV (human immunodeficiency virus infection) ICD Code: Z21 (14) Admission for chest tube placement ICD Code: Z46.82 (15) Systolic and diastolic CHF, 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 Rib biopsy obtained, pathology pending. Following pathology. Now attempting to wean off oxygen. Continue antibiotics. Sepsis Resolved Right sided Pneumonia Continue Cefepime, Flagyl, and Levaquin Follow clinically Oxygen supplementation and wean when/as tolerated Caution given HIV status Pleural Effusion Resolved Fluid was exudative Treated with chest tube Cytology was negative Joel Destruction at right rib Unlikely a manifestation of infection Following rib biopsy HIV No change to baseline treatment broader coverage of pneumonia is provided COPD Exacerbation (mild) Hypoxia (without oxygen) Increased risk for respiratory distress If lung biopsy is needed, this would be safer in an inpatient setting Currently there is a mild exacerbation from pneumonia Continue oxygen supplementation Wean oxygen as tolerated Systemic steroids started Continue PRN Albuterol Scheduled DuoNeb DM2 Insulin Sliding Scale Diabetic Diet Follow blood sugars Hyperlipidemia Continue statin Follow as an outpatient CHF No exacerbation No change to baseline treatment (Lasix, Spironolactone) Follow clinically HTN Continue baseline treatments (metoprolol) Follow BP Currently stable Adjust treatments if needed BPH Continue Flomax Follow clinically DVT Prophylaxis Lovenox started (hold for biopsy) Narendra Fernandez MD Mar 13, 2017 10:40
--- NOTE | 2017-03-13 14:43 | HHI.PR ---
Subjective Remarks 71 YO AA male with HIV,HTN,Pl effusion, rt rib destruction Breathing better Denies sob No new complaint Good appetite. Had Rib bx Objective Vital Signs Vital Signs Date Time Temp Pulse Resp B/P Pulse Ox O2 Delivery O2 Flow Rate FiO2 03/13/17 13:57 Nasal Cannula 2.00 03/13/17 12:56 98.1 81 17 135/86 96 03/13/17 10:08 97 Nasal Cannula 2.00 03/13/17 08:00 97.1 81 16 140/87 95 03/13/17 07:30 Nasal Cannula 2.00 03/13/17 07:00 85 03/13/17 05:30 98.0 86 19 165/92 96 03/13/17 00:30 97.7 88 20 152/80 96 03/12/17 21:00 78 03/12/17 20:50 96 Nasal Cannula 4.00 03/12/17 20:50 98.0 87 19 163/89 95 03/12/17 20:45 98.0 87 19 163/89 95 03/12/17 15:31 98.1 93 20 121/74 93 I/O 03/12/17 03/12/17 03/12/17 03/13/17 03/13/17 03/13/17 07:00 15:00 23:00 07:00 15:00 23:00 Intake Total 800 ml 850 ml Output Total 940 ml 801 ml 600 ml 400 ml Balance -940 ml -801 ml 200 ml 450 ml Intake Oral 800 ml 850 ml Output Urine Total 940 ml 800 ml 600 ml 400 ml Stool Total 1 ml # Voids 2 # Bowel Movements 2 1 0 Result Diagram: 03/12/1722 03/12/17 0722 Objective Remarks GENERAL: MBMN AA male, NAD SKIN: Warm and dry. HEAD: Normocephalic. EYES: No scleral icterus. No injection or drainage. NECK: Supple, trachea midline. No JVD or lymphadenopathy. CARDIOVASCULAR: Regular rate and rhythm without murmurs, gallops, or rubs. RESPIRATORY: Breath sounds equal bilaterally. No accessory muscle use. GASTROINTESTINAL: Abdomen soft, non-tender, nondistended. MUSCULOSKELETAL: No cyanosis, or edema. BACK: Nontender without obvious deformity. No CVA tenderness. A/P Assessment and Plan Pleural effusion, s/p TC Pl fluid is exudative Rt rib destruction, r/o Malig HIV COPD CHF HTN PLAN: Cont Abx Wean off 02 DW Pt Check bx result Clinically stable. Sunday Landry MD Mar 13, 2017 14:43
[2017-03-13] MEDS: ACETAMINOPHEN/HYDROcodone 325 MG/5 MG TAB PO PRN (21:38)
[2017-03-13] MEDS: PRAVASTATIN SOD 20 MG TAB PO SCH (21:39)
[2017-03-14] VITALS (9 sets, daily range): BP systolic 122–150; BP diastolic 76–90; PULSE 70–108; RESP 16–19; TEMP 97–98.2; O2SAT 95–99
[2017-03-14] MEDS: metroNIDAZOLE 500 MG TAB PO SCH ×3 (05:36→21:52)
[2017-03-14] MEDS: INSULIN NovoLIN REGULAR SUPPLEMENTAL SCALE SQ SCH ×4 (06:15→21:00)
[2017-03-14] MEDS: CEFEPIME INJ 2,000 MG in SODIUM CHLORIDE 0.9% INJ 100 ML IV SCH ×3 (06:20→23:12)
--- NOTE | 2017-03-14 08:48 | HHI.PR ---
Subjective Remarks Able to wean off oxygen you. Pathology pending. Patient has no new complaints. Objective Vital Signs Date Time Temp Pulse Resp B/P Pulse Ox O2 Delivery O2 Flow Rate FiO2 03/14/17 05:15 97.0 70 18 150/90 98 03/14/17 00:45 98.0 87 19 122/76 97 03/13/17 21:26 99 Nasal Cannula 2.00 03/13/17 21:00 96 03/13/17 21:00 Nasal Cannula 2.00 03/13/17 20:45 97.6 97 19 162/92 98 03/13/17 14:45 97.1 89 16 158/91 95 03/13/17 13:57 Nasal Cannula 2.00 03/13/17 12:56 98.1 81 17 135/86 96 03/13/17 10:08 97 Nasal Cannula 2.00 I/O 03/13/17 03/13/17 03/13/17 03/14/17 03/14/17 03/14/17 07:00 15:00 23:00 07:00 15:00 23:00 Intake Total 850 ml 720 ml 750 ml 975 ml Output Total 400 ml 400 ml 500 ml 400 ml Balance 450 ml 320 ml 250 ml 575 ml Intake Oral 850 ml 720 ml 750 ml 975 ml Output Urine Total 400 ml 400 ml 500 ml 400 ml # Voids 2 2 1 # Bowel Movements 0 2 1 1 Result Diagram: 03/12/1772103/12/17721 Procedures Right Chest Tube placement 03/06/17 Objective Remarks GENERAL: NAD, A&Ox3 SKIN: Warm and dry. HEAD: Normocephalic. EYES: No scleral icterus. No injection or drainage. NECK: Supple, trachea midline. No JVD or lymphadenopathy. CARDIOVASCULAR: Regular rate and rhythm without murmurs, gallops, or rubs. RESPIRATORY: Breath sounds equal bilaterally. No accessory muscle use. GASTROINTESTINAL: Abdomen soft, non-tender, nondistended. MUSCULOSKELETAL: No cyanosis, or edema. BACK: Nontender without obvious deformity. No CVA tenderness. A/P Problem List: (1) DM (diabetes mellitus screen) ICD Code: Z13.1 (2) HTN (hypertension) ICD Code: I10 (3) Pneumonia involving right lung ICD Code: J18.9 (4) Lytic bone lesions on xray ICD Code: M89.9 (5) DM2 (diabetes mellitus, type 2) ICD Code: E11.9 (6) BPH (benign prostatic hyperplasia) ICD Code: N40.0 (7) COPD exacerbation ICD Code: J44.1 (8) Sepsis ICD Code: A41.9 (9) Hypoxia ICD Code: R09.02 (10) Hyperlipidemia ICD Code: E78.5 (11) Blindness ICD Code: H54.0 (12) Pleural effusion ICD Code: J90 (13) HIV (human immunodeficiency virus infection) ICD Code: Z21 (14) Admission for chest tube placement ICD Code: Z46.82 (15) Systolic and diastolic CHF, 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 Rib biopsy obtained, pathology pending. Unable to wean off oxygen yet. Sepsis Resolved Right sided Pneumonia Continue Cefepime, Flagyl, and Levaquin Follow clinically Oxygen supplementation and wean when/as tolerated Caution given HIV status Pleural Effusion Resolved Fluid was exudative Treated with chest tube Cytology was negative Joel Destruction at right rib Unlikely a manifestation of infection Following rib biopsy HIV No change to baseline treatment broader coverage of pneumonia is provided COPD Exacerbation (mild) Hypoxia (without oxygen) Increased risk for respiratory distress If lung biopsy is needed, this would be safer in an inpatient setting Currently there is a mild exacerbation from pneumonia Continue oxygen supplementation Wean oxygen as tolerated Systemic steroids started Continue PRN Albuterol Scheduled DuoNeb DM2 Insulin Sliding Scale Diabetic Diet Follow blood sugars Hyperlipidemia Continue statin Follow as an outpatient CHF No exacerbation No change to baseline treatment (Lasix, Spironolactone) Follow clinically HTN Continue baseline treatments (metoprolol) Follow BP Currently stable Adjust treatments if needed BPH Continue Flomax Follow clinically DVT Prophylaxis Lovenox started (hold for biopsy) Narendra Fernandez MD Mar 14, 2017 08:48
[2017-03-14] MEDS: guaiFENesin E.R. 600 MG TAB PO SCH ×2 (10:00→21:51)
[2017-03-14] MEDS: ENOXAPARIN SODIUM 40 MG/0.4 ML SYRINGE SQ SCH (10:00)
[2017-03-14] MEDS: TAMSULOSIN HCL 0.4 MG CAP PO SCH (10:01)
[2017-03-14] MEDS: FINASTERIDE 5 MG TAB PO SCH (10:01)
[2017-03-14] MEDS: valACYclovir HCL 500 MG TAB PO SCH (10:01)
[2017-03-14] MEDS: LEVOFLOXACIN 750 MG TAB PO SCH (10:01)
[2017-03-14] MEDS: predniSONE 20 MG TAB PO SCH ×2 (10:01→21:52)
[2017-03-14] MEDS: SPIRONOLACTONE 25 MG TAB PO SCH (10:02)
[2017-03-14] MEDS: METOPROLOL TARTRATE 25 MG TAB PO SCH ×2 (10:02→21:52)
[2017-03-14] MEDS: traMADol HCL 50 MG TAB PO SCH ×2 (10:02→21:52)
[2017-03-14] MEDS: FUROSEMIDE 20 MG TAB PO SCH (10:02)
[2017-03-14] MEDS: DOCUSATE SODIUM 50 MG/SENNA 8.6 MG TAB PO SCH ×2 (10:03→21:52)
[2017-03-14] MEDS: SODIUM CHLORIDE 0.9% FLUSH 10 ML FLUSH IV FLUSH SCH ×2 (10:03→21:00)
[2017-03-14] MEDS: ACETAMINOPHEN/HYDROcodone 325 MG/5 MG TAB PO PRN ×2 (10:03→22:01)
[2017-03-14] MEDS: ASPIRIN EC 81 MG TABEC PO SCH (13:35)
--- NOTE | 2017-03-14 18:39 | HHI.PR ---
Subjective Remarks 71 YO AA male with HIV,HTN,Pl effusion, rt rib destruction Breathing better Denies sob No new complaint Good appetite. Had Rib bx, path showes adenoca Objective Vital Signs Vital Signs Date Time Temp Pulse Resp B/P Pulse Ox O2 Delivery O2 Flow Rate FiO2 03/14/17 16:00 97.4 83 16 123/78 95 03/14/17 15:21 82 03/14/17 12:00 97.4 103 17 135/87 95 03/14/17 10:07 Nasal Cannula 2.00 03/14/17 08:59 99 Nasal Cannula 2.00 03/14/17 08:00 98.2 90 18 137/82 95 03/14/17 05:15 97.0 70 18 150/90 98 03/14/17 00:45 98.0 87 19 122/76 97 03/13/17 21:26 99 Nasal Cannula 2.00 03/13/17 21:00 96 03/13/17 21:00 Nasal Cannula 2.00 03/13/17 20:45 97.6 97 19 162/92 98 I/O 03/13/17 03/13/17 03/13/17 03/14/17 03/14/17 03/14/17 07:00 15:00 23:00 07:00 15:00 23:00 Intake Total 850 ml 720 ml 750 ml 975 ml 480 ml Output Total 400 ml 400 ml 500 ml 400 ml Balance 450 ml 320 ml 250 ml 575 ml 480 ml Intake Oral 850 ml 720 ml 750 ml 975 ml 480 ml Output Urine Total 400 ml 400 ml 500 ml 400 ml # Voids 2 2 1 3 # Bowel Movements 0 2 1 1 1 Result Diagram: 03/12/1772103/12/17721 Objective Remarks GENERAL: MBMN AA male, NAD SKIN: Warm and dry. HEAD: Normocephalic. EYES: No scleral icterus. No injection or drainage. NECK: Supple, trachea midline. No JVD or lymphadenopathy. CARDIOVASCULAR: Regular rate and rhythm without murmurs, gallops, or rubs. RESPIRATORY: Breath sounds equal bilaterally. No accessory muscle use. GASTROINTESTINAL: Abdomen soft, non-tender, nondistended. MUSCULOSKELETAL: No cyanosis, or edema. BACK: Nontender without obvious deformity. No CVA tenderness. A/P Assessment and Plan Pleural effusion, s/p TC Pl fluid is exudative Rt rib destruction, r/o Malig HIV COPD CHF HTN PLAN: Cont Abx Wean off 02 DW Pt DW pt path results Will consult oncology. Clinically stable. Sunday Landry MD Mar 14, 2017 18:39
[2017-03-14] MEDS: PRAVASTATIN SOD 20 MG TAB PO SCH (21:52)
[2017-03-15] VITALS (9 sets, daily range): BP systolic 124–164; BP diastolic 70–94; PULSE 71–100; RESP 16–20; TEMP 96.6–97.5; O2SAT 96–97
[2017-03-15] MEDS: metroNIDAZOLE 500 MG TAB PO SCH ×3 (05:11→19:47)
[2017-03-15] MEDS: ACETAMINOPHEN/HYDROcodone 325 MG/5 MG TAB PO PRN ×3 (06:41→21:29)
[2017-03-15] MEDS: CEFEPIME INJ 2,000 MG in SODIUM CHLORIDE 0.9% INJ 100 ML IV SCH ×3 (06:44→21:28)
[2017-03-15] MEDS: INSULIN NovoLIN REGULAR SUPPLEMENTAL SCALE SQ SCH ×4 (06:44→19:53)
[2017-03-15] MEDS: LEVOFLOXACIN 750 MG TAB PO SCH (08:02)
[2017-03-15] MEDS: METOPROLOL TARTRATE 25 MG TAB PO SCH ×2 (08:02→19:47)
[2017-03-15] MEDS: valACYclovir HCL 500 MG TAB PO SCH (08:02)
[2017-03-15] MEDS: SPIRONOLACTONE 25 MG TAB PO SCH (08:02)
[2017-03-15] MEDS: guaiFENesin E.R. 600 MG TAB PO SCH ×2 (08:02→19:47)
[2017-03-15] MEDS: predniSONE 20 MG TAB PO SCH ×2 (08:02→19:47)
[2017-03-15] MEDS: FUROSEMIDE 20 MG TAB PO SCH (08:03)
[2017-03-15] MEDS: FINASTERIDE 5 MG TAB PO SCH (08:03)
[2017-03-15] MEDS: DOCUSATE SODIUM 50 MG/SENNA 8.6 MG TAB PO SCH ×2 (08:03→19:47)
[2017-03-15] MEDS: traMADol HCL 50 MG TAB PO SCH ×2 (08:03→21:28)
[2017-03-15] MEDS: TAMSULOSIN HCL 0.4 MG CAP PO SCH (08:03)
[2017-03-15] MEDS: SODIUM CHLORIDE 0.9% FLUSH 10 ML FLUSH IV FLUSH SCH ×2 (08:10→19:47)
[2017-03-15] MEDS: ENOXAPARIN SODIUM 40 MG/0.4 ML SYRINGE SQ SCH (10:19)
--- NOTE | 2017-03-15 11:18 | HHI.PR ---
Subjective Remarks Pathology shows lung cancer on rebiopsy. This is discussed with the patient again. Oncology consult pending. Objective Vital Signs Date Time Temp Pulse Resp B/P Pulse Ox O2 Delivery O2 Flow Rate FiO2 03/15/17 10:57 97 Nasal Cannula 3.00 03/15/17 09:42 71 03/15/17 08:30 96.6 91 16 124/76 97 03/15/17 08:12 Nasal Cannula 2.00 03/15/17 04:30 97.0 82 18 164/86 96 03/15/17 00:00 97.5 77 18 124/70 97 03/14/17 21:00 108 03/14/17 21:00 Nasal Cannula 2.00 03/14/17 20:30 97.5 95 18 135/90 97 03/14/17 16:00 97.4 83 16 123/78 95 03/14/17 15:21 82 03/14/17 12:00 97.4 103 17 135/87 95 I/O 03/14/17 03/14/17 03/14/17 03/15/17 03/15/17 03/15/17 07:00 15:00 23:00 07:00 15:00 23:00 Intake Total 975 ml 480 ml 950 ml 800 ml Output Total 400 ml 650 ml 1000 ml Balance 575 ml 480 ml 300 ml -200 ml Intake Oral 975 ml 480 ml 950 ml 800 ml Output Urine Total 400 ml 650 ml 1000 ml # Voids 1 3 # Bowel Movements 1 1 0 1 Result Diagram: 03/12/17 0722 03/12/17 07 Procedures Right Chest Tube placement 03/06/17 Objective Remarks GENERAL: NAD, A&Ox3 SKIN: Warm and dry. HEAD: Normocephalic. EYES: No scleral icterus. No injection or drainage. NECK: Supple, trachea midline. No JVD or lymphadenopathy. CARDIOVASCULAR: Regular rate and rhythm without murmurs, gallops, or rubs. RESPIRATORY: Breath sounds equal bilaterally. No accessory muscle use. GASTROINTESTINAL: Abdomen soft, non-tender, nondistended. MUSCULOSKELETAL: No cyanosis, or edema. BACK: Nontender without obvious deformity. No CVA tenderness. A/P Problem List: (1) DM (diabetes mellitus screen) ICD Code: Z13.1 (2) HTN (hypertension) ICD Code: I10 (3) Pneumonia involving right lung ICD Code: J18.9 (4) Lytic bone lesions on xray ICD Code: M89.9 (5) DM2 (diabetes mellitus, type 2) ICD Code: E11.9 (6) BPH (benign prostatic hyperplasia) ICD Code: N40.0 (7) COPD exacerbation ICD Code: J44.1 (8) Sepsis ICD Code: A41.9 (9) Hypoxia ICD Code: R09.02 (10) Hyperlipidemia ICD Code: E78.5 (11) Blindness ICD Code: H54.0 (12) Pleural effusion ICD Code: J90 (13) HIV (human immunodeficiency virus infection) ICD Code: Z21 (14) Admission for chest tube placement ICD Code: Z46.82 (15) Systolic and diastolic CHF, chronic ICD Code: I50.42 Assessment and Plan Assessment and Plan 71 year old male with HIV admitted with Sepsis and Pneumonia. Rib biopsy was positive for lung cancer. Oncology consulted and evaluation pending. Situation discussed with the patient. He continues to remain oxygen dependent but has less dyspnea than before. Oxygen weaning attempts are ongoing. Sepsis Resolved Right sided Pneumonia Continue Cefepime, Flagyl, and Levaquin Follow clinically Oxygen supplementation and wean when/as tolerated Caution given HIV status Pleural Effusion Resolved Fluid was exudative Treated with chest tube Cytology was negative Joel Destruction at right rib Unlikely a manifestation of infection Following rib biopsy HIV No change to baseline treatment broader coverage of pneumonia is provided COPD Exacerbation (mild) Hypoxia (without oxygen) Increased risk for respiratory distress If lung biopsy is needed, this would be safer in an inpatient setting Currently there is a mild exacerbation from pneumonia Continue oxygen supplementation Wean oxygen as tolerated Systemic steroids started Continue PRN Albuterol Scheduled DuoNeb DM2 Insulin Sliding Scale Diabetic Diet Follow blood sugars Hyperlipidemia Continue statin Follow as an outpatient CHF No exacerbation No change to baseline treatment (Lasix, Spironolactone) Follow clinically HTN Continue baseline treatments (metoprolol) Follow BP Currently stable Adjust treatments if needed BPH Continue Flomax Follow clinically DVT Prophylaxis Lovenox started (hold for biopsy) Narendra Fernandez MD Mar 15, 2017 11:18
--- NOTE | 2017-03-15 19:27 | HHI.PR ---
Subjective Remarks 71 YO AA male with HIV,HTN,Pl effusion, rt rib destruction Breathing better Denies sob No new complaint Good appetite. Had Rib bx, path showes adenoca DW Objective Vital Signs Vital Signs Date Time Temp Pulse Resp B/P Pulse Ox O2 Delivery O2 Flow Rate FiO2 03/15/17 18:24 96 Nasal Cannula 3.00 03/15/17 16:45 96.7 88 17 130/94 96 03/15/17 12:00 97.1 86 16 142/90 96 03/15/17 10:57 97 Nasal Cannula 3.00 03/15/17 09:42 71 03/15/17 08:30 96.6 91 16 124/76 97 03/15/17 08:12 Nasal Cannula 2.00 03/15/17 04:30 97.0 82 18 164/86 96 03/15/17 00:00 97.5 77 18 124/70 97 03/14/17 21:00 108 03/14/17 21:00 Nasal Cannula 2.00 03/14/17 20:30 97.5 95 18 135/90 97 I/O 03/14/17 03/14/17 03/14/17 03/15/17 03/15/17 03/15/17 07:00 15:00 23:00 07:00 15:00 23:00 Intake Total 975 ml 480 ml 950 ml 800 ml Output Total 400 ml 650 ml 1000 ml 425 ml Balance 575 ml 480 ml 300 ml -200 ml -425 ml Intake Oral 975 ml 480 ml 950 ml 800 ml Output Urine Total 400 ml 650 ml 1000 ml 425 ml # Voids 1 3 # Bowel Movements 1 1 0 1 Result Diagram: 03/12/1772103/12/17 07 Objective Remarks GENERAL: MBMN AA male, NAD SKIN: Warm and dry. HEAD: Normocephalic. EYES: No scleral icterus. No injection or drainage. NECK: Supple, trachea midline. No JVD or lymphadenopathy. CARDIOVASCULAR: Regular rate and rhythm without murmurs, gallops, or rubs. RESPIRATORY: Breath sounds equal bilaterally. No accessory muscle use. GASTROINTESTINAL: Abdomen soft, non-tender, nondistended. MUSCULOSKELETAL: No cyanosis, or edema. BACK: Nontender without obvious deformity. No CVA tenderness. A/P Assessment and Plan Pleural effusion, s/p TC Pl fluid is exudative Rt rib destruction, r/o Malig HIV COPD CHF HTN PLAN: Cont Abx Wean off 02 DW Pt DW pt path results Clinically stable. Sunday Landry MD Mar 15, 2017 19:27
[2017-03-15] MEDS: PRAVASTATIN SOD 20 MG TAB PO SCH (19:47)
[2017-03-16] VITALS (9 sets, daily range): BP systolic 125–144; BP diastolic 69–94; PULSE 77–99; RESP 16–20; TEMP 96.8–98.7; O2SAT 93–98
--- NOTE | 2017-03-16 05:39 | MB ---
cc: OLIVER BANKS DATE OF 1945. DATE OF CONSULTATION March 15, 2017. REASON FOR CONSULTATION Patient with newly diagnosed agl-grlhx-pmog lung cancer. HISTORY OF PRESENT ILLNESS Mr. Lee is a 71-year-old male who has a past medical history of HIV currently on antiretroviral medications, hypertension, hyperlipidemia, diabetes type 2 and COPD, who was brought to the emergency department via EMS with 1-2 weeks' history of progressive shortness of breath and chest discomfort. He has also been losing weight for the past 1-2 months. The patient is legally blind. Upon arrival in the emergency room he underwent CT angiogram. This revealed extensive emphysematous changes in both lungs. There was consolidated changes and pleural beginning on the right with a moderate right-sided pleural effusion. There was a destructive process involving the right sixth rib on the anterior axillary line concerning for malignancy. The patient had pleurocentesis but the pleural fluid was negative for malignant cells. He then underwent a CT-guided biopsy of the chest wall/bone lesion. The biopsy confirmed invasive moderately differentiated adenocarcinoma consistent with lung primary. The tumor was positive for CEA, MOC-31, TTF-1 and weakly positive for A. He is currently being treated for pneumonia with IV antibiotics. He is currently on cefepime, Flagyl and Levaquin. He also has respiratory distress and COPD exacerbation and he is currently on supplemental oxygen. He is also receiving breathing treatments. Upon my conversation with the patient, the patient has minimal social, he lives by himself. He has a 17-year-old son who is not very supportive of him. The patient sees Dr. German who is an infection disease specialist. He is currently on antiretroviral medications. He states that he has had HIV for the past 10 years. The patient is currently disabled. He is legally blind. Oncology has been consulted to make recommendations in this patient who has metastatic ywv-ngxin-oply lung cancer. REVIEW OF SYSTEMS A comprehensive 14-point review of systems was completed which was negative except as described in the HPI. PAST MEDICAL HISTORY 1. HIV diagnosis currently on antiretroviral medications. 2. Hypertension. 3. Hyperlipidemia. 4. Chronic systolic heart failure. 5. Diabetes. 6. BPH. 7. COPD. 8. Legally blind. PAST SURGICAL HISTORY ORIF of right ankle. FAMILY HISTORY Significant for diabetes. No history of malignancy. SOCIAL HISTORY He lives by himself. He does have a 17-year-old son who is not very supportive of him. He has a long history of smoking cigarettes but he states that he quit a few years ago. He does not drink alcohol. MEDICATIONS 1. Prednisone 20 mg p.o. b.i.d. 2. Lovenox 40 mg subcu 24 hours. 3. Aspirin 81 mg daily. 4. Goessel 5/325 one tablet p.o. q.4 hours p.r.n. 5. Morphine sulfate 2 mg IV q.2 hours p.r.n. 6. DuoNebs 2.5 mg q.2 hours p.r.n. 7. Proscar 5 mg p.o. daily. 8. Furosemide 20 mg p.o. daily. 9. Spironolactone 25 mg p.o. daily. 10. Flomax 0.8 mg p.o. daily. 11. Valtrex 1000 mg p.o. daily. 12. Levaquin 750 mg p.o. daily. 13. Flagyl 500 mg p.o. q.8 hours. 14. Cefepime 2 grams IV q.8 hours. 15. Lopressor 12.5 mg p.o. b.i.d. 16. Tramadol 50 mg p.o. b.i.d. 17. Pravachol 20 mg p.o. q.h.s. 18. Guaifenesin 600 mg p.o. b.i.d. 19. Ondansetron 4 mg IV q.6 hours. 20. Milk of magnesia 30 cc p.o. q.12 hours. 21. Senokot 17.2 mg p.o. q.12 hours. 22. Bisacodyl 10 mg p.r.n. daily. 23. Lactulose 30 cc p.o. daily p.r.n. ALLERGIES No known drug allergies. PHYSICAL EXAMINATION VITAL SIGNS: Blood pressure is 130/94, pulse is in the 80s, temperature is 96.7, respiratory rate is 17, O2 sats are 96% on 3 liters nasal cannula. GENERAL: Chronically ill-appearing elderly male who appears weak and cachectic. HEENT: Pupils are equal, round, react to light. EOMI. No oral thrush. No oral lesions. NECK: Supple. No JVD, no bruits, no lymphadenopathy. CHEST: Bilateral wheezes and scattered rhonchi. CARDIAC: S1-S2, regular rate and rhythm. ABDOMEN: Soft, nontender, nondistended. Bowel sounds are present. EXTREMITIES: Without edema, erythema or cyanosis. SKIN: Without petechiae, lesion or bruises. NEURO: No focal deficits. PSYCHIATRIC: Mood and affect is appropriate. LYMPH NODE EXAM: No lymphadenopathy on exam. IMAGING CTA of the chest was reviewed and discussed in the HPI. Other imaging was also reviewed in the EMR. Pathology results were reviewed. ASSESSMENT AND PLAN This is a 71-year-old male with past medical history of HIV, COPD, hypertension, who is legally blind. He presents to the emergency department with worsening dyspnea, chest discomfort and was found to have chest wall mass. He had a biopsy that confirms a non-small cell lung cancer. 1. Stage IV rhb-hcxtt-zvek lung cancer with adenocarcinoma histology. I had a long conversation with the patient. I explained to him that she has stage IV disease. His cancer has invaded the chest wall, into the ribs. There is no surgical option to treat his disease. Stage IV lung cancer is treated with chemotherapy. The patient has borderline functional status. The patient states that he was quite functional prior to his presentation to the hospital and that he wants aggressive therapy. I again explained to him that Stage IV cancer treatments are palliative in nature. The goal of the treatment is to control the disease and to preserve the quality of life for the patient and to minimize toxicity. I also discussed the role of palliative care and hospice. The patient insisted that he would like to receive aggressive treatment. The patient has poor social support. He has HIV and he is legally blind; these are extreme barriers to receiving treatment for lung cancer. We will ask Palliative Care to talk with the patient and to ascertain goals of care. The patient will need rehab and improvement in his performance status to receive any type of systemic chemotherapy. The patient can be followed up in the Oncology Clinic once he is discharged from the hospital. If he does proceed with receiving any treatment in the future, he will need a chemotherapy port. This was discussed with the patient at length. I discussed his case with Dr. Gris jorgensen. 2. History of HIV. He was treated with antiretroviral drugs. I see that he is currently not any of these medications. He follows with Dr. German 3. Legally blind. 4. COPD exacerbation/pneumonia, currently on antibiotics, breathing treatments, supplemental oxygen. Thank you for allowing me to participate in the care of this patient. I will continue to follow this patient along. In order to complete the staging, we will obtain a CT of the abdomen and pelvis with contrast. MD FELIX Kang/DANA /11:44 PM /5:03 AM
[2017-03-16] MEDS: INSULIN NovoLIN REGULAR SUPPLEMENTAL SCALE SQ SCH ×4 (06:01→20:29)
[2017-03-16] MEDS: metroNIDAZOLE 500 MG TAB PO SCH ×3 (06:01→21:58)
[2017-03-16] MEDS: CEFEPIME INJ 2,000 MG in SODIUM CHLORIDE 0.9% INJ 100 ML IV SCH ×3 (06:01→21:59)
[2017-03-16] MEDS: FUROSEMIDE 20 MG TAB PO SCH (08:14)
[2017-03-16] MEDS: TAMSULOSIN HCL 0.4 MG CAP PO SCH (08:14)
[2017-03-16] MEDS: FINASTERIDE 5 MG TAB PO SCH (08:14)
[2017-03-16] MEDS: valACYclovir HCL 500 MG TAB PO SCH (08:14)
[2017-03-16] MEDS: SPIRONOLACTONE 25 MG TAB PO SCH (08:14)
[2017-03-16] MEDS: METOPROLOL TARTRATE 25 MG TAB PO SCH ×2 (08:15→20:32)
[2017-03-16] MEDS: predniSONE 20 MG TAB PO SCH ×2 (08:15→20:30)
[2017-03-16] MEDS: traMADol HCL 50 MG TAB PO SCH ×2 (08:15→20:31)
[2017-03-16] MEDS: guaiFENesin E.R. 600 MG TAB PO SCH ×2 (08:15→20:32)
[2017-03-16] MEDS: LEVOFLOXACIN 750 MG TAB PO SCH (08:16)
[2017-03-16] MEDS: SODIUM CHLORIDE 0.9% FLUSH 10 ML FLUSH IV FLUSH SCH ×2 (08:16→20:32)
[2017-03-16] MEDS: DOCUSATE SODIUM 50 MG/SENNA 8.6 MG TAB PO SCH ×2 (08:16→20:32)
[2017-03-16] MEDS: ACETAMINOPHEN/HYDROcodone 325 MG/5 MG TAB PO PRN ×3 (10:58→21:58)
[2017-03-16] MEDS: ENOXAPARIN SODIUM 40 MG/0.4 ML SYRINGE SQ SCH (10:58)
--- NOTE | 2017-03-16 11:06 | HHI.PR ---
Subjective Remarks Patient is interested in treatment. She remains oxygen dependent. Wean off oxygen dropped his saturations 87%. At this point he will need oxygen at discharge. Port placement for future chemotherapy plan prior to discharge. Objective Vital Signs Date Time Temp Pulse Resp B/P Pulse Ox O2 Delivery O2 Flow Rate FiO2 03/16/17 09:35 80 03/16/17 09:30 98 Nasal Cannula 3.00 03/16/17 08:30 95 Nasal Cannula 2.00 03/16/17 06:23 97.3 77 18 129/88 98 03/16/17 00:00 97.5 79 18 135/94 97 03/15/17 20:00 97.5 100 20 138/85 96 03/15/17 18:24 96 Nasal Cannula 3.00 03/15/17 16:45 96.7 88 17 130/94 96 03/15/17 12:00 97.1 86 16 142/90 96 I/O 03/15/17 03/15/17 03/15/17 03/16/17 03/16/17 03/16/17 06:59 14:59 22:59 06:59 14:59 22:59 Intake Total 800 ml Output Total 1000 ml 425 ml 325 ml 250 ml Balance -200 ml -425 ml -325 ml -250 ml Intake Oral 800 ml Output Urine Total 1000 ml 425 ml 325 ml 250 ml # Bowel Movements 1 1 0 Result Diagram: 03/12/17 0722 03/12/17 0722 Procedures Right Chest Tube placement 03/06/17 Objective Remarks GENERAL: NAD, A&Ox3 SKIN: Warm and dry. HEAD: Normocephalic. EYES: No scleral icterus. No injection or drainage. NECK: Supple, trachea midline. No JVD or lymphadenopathy. CARDIOVASCULAR: Regular rate and rhythm without murmurs, gallops, or rubs. RESPIRATORY: Breath sounds equal bilaterally. No accessory muscle use. GASTROINTESTINAL: Abdomen soft, non-tender, nondistended. MUSCULOSKELETAL: No cyanosis, or edema. BACK: Nontender without obvious deformity. No CVA tenderness. A/P Problem List: (1) DM (diabetes mellitus screen) ICD Code: Z13.1 (2) HTN (hypertension) ICD Code: I10 (3) Pneumonia involving right lung ICD Code: J18.9 (4) Lytic bone lesions on xray ICD Code: M89.9 (5) DM2 (diabetes mellitus, type 2) ICD Code: E11.9 (6) BPH (benign prostatic hyperplasia) ICD Code: N40.0 (7) COPD exacerbation ICD Code: J44.1 (8) Sepsis ICD Code: A41.9 (9) Hypoxia ICD Code: R09.02 (10) Hyperlipidemia ICD Code: E78.5 (11) Blindness ICD Code: H54.0 (12) Pleural effusion ICD Code: J90 (13) HIV (human immunodeficiency virus infection) ICD Code: Z21 (14) Admission for chest tube placement ICD Code: Z46.82 (15) Systolic and diastolic CHF, chronic ICD Code: I50.42 Assessment and Plan Assessment and Plan 71 year old male with HIV admitted with Sepsis and Pneumonia. Rib biopsy was positive for lung cancer. Patient is interested in having chemotherapy, even though it is palliative. Port placement pending. Continue oxygen as patient is not yet tolerating room air secondary to hypoxia. Sepsis Resolved Right sided Pneumonia Continue Cefepime, Flagyl, and Levaquin Follow clinically Oxygen supplementation and wean when/as tolerated Caution given HIV status Pleural Effusion Resolved Fluid was exudative Treated with chest tube Cytology was negative Joel Destruction at right rib Unlikely a manifestation of infection Following rib biopsy HIV No change to baseline treatment broader coverage of pneumonia is provided COPD Exacerbation (mild) Hypoxia (without oxygen) Increased risk for respiratory distress If lung biopsy is needed, this would be safer in an inpatient setting Currently there is a mild exacerbation from pneumonia Continue oxygen supplementation Wean oxygen as tolerated Systemic steroids started Continue PRN Albuterol Scheduled DuoNeb DM2 Insulin Sliding Scale Diabetic Diet Follow blood sugars Hyperlipidemia Continue statin Follow as an outpatient CHF No exacerbation No change to baseline treatment (Lasix, Spironolactone) Follow clinically HTN Continue baseline treatments (metoprolol) Follow BP Currently stable Adjust treatments if needed BPH Continue Flomax Follow clinically DVT Prophylaxis Lovenox started (hold for biopsy) Narendra Fernandez MD Mar 16, 2017 11:06
[2017-03-16] MEDS ORDERED: OXYGENDME NAS.CANULA (11:49)
--- NOTE | 2017-03-16 11:50 | HHI.FF ---
Face to Face Verification Diagnosis: (1) Hypoxia (2) Lung cancer (3) Pneumonia involving right lung Home Health Nursing Order: Signs/symptoms of disease process Oxygen administration education Nursing assessment with vital signs I have seen patient Julio LeeJr on 03/16/17. My clinical findings support the need for the requested home health care services because: Ltd mobility - disease progression Deconditioned w/ increased weakness Limited ability to care for self I certify that my clinical findings support that this patient is homebound because: Unsafe to leave home unassisted Unable to use public transportation Narendra Fernandez MD Mar 16, 2017 11:50
--- NOTE | 2017-03-16 14:38 | PD.ONC.PN ---
Subjective Subjective Remarks Afebrile overnight Pt states he "feels good" States he has friends and family members that can help him get to the office for chemo Denies SOB or chest pain Objective Data Date Time Temp Pulse Resp B/P Pulse Ox O2 Delivery O2 Flow Rate FiO2 03/16/17 12:00 98.7 88 16 127/69 94 03/16/17 09:35 80 03/16/17 09:30 98 Nasal Cannula 3.00 03/16/17 08:30 95 Nasal Cannula 2.00 03/16/17 08:00 97.4 99 16 136/83 93 03/16/17 06:23 97.3 77 18 129/88 98 03/16/17 00:00 97.5 79 18 135/94 97 03/15/17 20:00 97.5 100 20 138/85 96 03/15/17 18:24 96 Nasal Cannula 3.00 03/15/17 16:45 96.7 88 17 130/94 96 03/16/17 03/16/17 03/16/17 07:00 15:00 23:00 Output Total 250 ml Balance -250 ml Result Diagram: 03/12/1772103/12/17721 Administered Medications Medications (Trade) Dose Ordered Sig/Keena Route PRN Reason Start Time Stop Time Status Last Admin Dose Admin Aspirin (Ecotrin Ec) 81 mg MOWEFR PO 03/07/17 16:15 03/14/17 13:35 Finasteride (Proscar) 5 mg DAILY PO 03/06/17 09:00 03/16/17 08:14 Furosemide (Lasix) 20 mg DAILY PO 03/06/17 09:00 03/16/17 08:14 Metoprolol Tartrate (Lopressor) 12.5 mg BID PO 03/05/17 21:00 03/16/17 08:15 Spironolactone (Aldactone) 25 mg DAILY PO 03/06/17 09:00 03/16/17 08:14 Tamsulosin HCl (Flomax) 0.8 mg DAILY PO 03/06/17 09:00 03/16/17 08:14 Tramadol HCl (Ultram) 50 mg BID PO 03/05/17 21:00 03/16/17 08:15 Valacyclovir HCl (Valtrex) 1,000 mg DAILY PO 03/06/17 09:00 03/16/17 08:14 Pravastatin Sodium (Pravachol) 20 mg HS PO 03/05/17 21:00 03/15/17 19:47 Senna/Docusate Sodium (Brit-Colace) 1 tab BID PO 03/05/17 21:00 03/16/17 08:16 Sennosides (Senokot) 17.2 mg Q12H PRN PO MODERATE - SEVERE CONSTIPATION 03/05/17 16:15 03/07/17 22:02 Guaifenesin (Mucinex Er) 600 mg BID PO 03/05/17 21:00 03/16/17 08:15 Levofloxacin (Levaquin) 750 mg DAILY PO 03/06/17 09:00 03/16/17 08:16 Metronidazole 500 mg 500 mg Q8HR PO 03/05/17 23:00 03/16/17 14:21 Cefepime HCl/ Sodium Chloride (Maxipime Inj/NS Inj) 100 ml @ 200 mls/hr Q8H IV 03/05/17 23:00 03/16/17 14:21 Sodium Chloride (NS Flush) 2 ml BID IV FLUSH 03/06/17 21:00 03/16/17 08:16 Acetaminophen/ Hydrocodone Bitart (Dumas 5-325 Mg) 1 tab Q4H PRN PO PAIN SCALE 1 TO 5 03/06/17 17:00 03/16/17 10:58 Morphine Sulfate (Morphine Inj) 2 mg Q2H PRN IV PAIN SCALE 6 TO 10 03/06/17 17:00 03/06/17 17:38 Enoxaparin Sodium (Lovenox Inj) 40 mg Q24H SQ 03/08/17 10:00 03/16/17 10:58 Prednisone (Deltasone) 20 mg BID PO 03/08/17 21:00 03/16/17 08:15 Objective Remarks GENERAL: Older male, sitting up in chair at bedside in no distress. SKIN: Warm and dry. HEAD: Normocephalic. EYES: Mildly injected. Pt legally blind. NECK: Supple, trachea midline. CARDIOVASCULAR: Regular rate and rhythm without murmurs. RESPIRATORY: Mildly diminished to the RLL. Breathing unlabored. GASTROINTESTINAL: Abdomen soft, non-tender, nondistended. EXTREMITIES: No cyanosis, or edema. MUSCULOSKELETAL: Adequate muscle tone. NEUROLOGICAL: A&Ox3. Normal speech. Moving all extremities. Assessment/Plan Problem List: (1) Lung cancer Status: Acute Plan: --Recent diagnosis of NSCLC -- Will get CT Abdomen/Pelvis w/contrast to complete staging. -- Chemotherapy will be considered as an outpatient once his performance status improves. Hx/Workup: Progressive weight loss for the past 1-2 months. On admission he was noted to have a right-sided pleural effusion. There was destruction process involving the right sixth rib on the anterior axillary line concerning for malignancy. A pleuracentesis was negative for malignant cells on the pleural fluid, however CT-guided biopsy of the chest wall and bone lesion confirmed invasive moderately differentiated adenocarcinoma consistent with lung primary (2) Pneumonia involving right lung Status: Acute Plan: -- Currently on Levaquin, Flagyl and Cefepime Assessment 71 y/o male with HIV admitted for pneumonia and was found to have a destructive process to the R rib. Biopsy was proven to be adenocarcinoma. Plan 1. Complete staging with CT abdomen and pelvis with IV contrast 2. We'll consider chemotherapy as an outpatient once performance status improves 3. Will plan to get infusaport placed prior to discharge. 4. Facesheet faxed to [facility]. Attending Statement The exam, history, and the medical decision-making described in the above note were completed with the assistance of the mid-level provider. I reviewed and agree with the findings presented. I attest that I had a [id number] encounter with the patient on the same day, and personally performed and documented my assessment and findings in the medical record Patient and family wants aggressive treatment Ct abdomen shows diffusely metastatic disease Would recommend PT/rehab Assessment for any treatment eligibility can be made outpatient if he improves functionally. d/w Reina Kenny Mar 16, 2017 14:38 Miguel Carmona MD Mar 16, 2017 23:56
[2017-03-16] MEDS: ASPIRIN EC 81 MG TABEC PO SCH (15:31)
--- NOTE | 2017-03-16 18:30 | HHI.PR ---
Subjective Remarks 71 YO AA male with HIV,HTN,Pl effusion, rt rib destruction Breathing better Denies sob No new complaint Good appetite. Had Rib bx, path showes adenoca Objective Vital Signs Vital Signs Date Time Temp Pulse Resp B/P Pulse Ox O2 Delivery O2 Flow Rate FiO2 03/16/17 16:37 2.00 03/16/17 16:00 96.8 96 16 125/74 96 03/16/17 12:00 98.7 88 16 127/69 94 03/16/17 09:35 80 03/16/17 09:30 98 Nasal Cannula 3.00 03/16/17 08:30 95 Nasal Cannula 2.00 03/16/17 08:00 97.4 99 16 136/83 93 03/16/17 06:23 97.3 77 18 129/88 98 03/16/17 00:00 97.5 79 18 135/94 97 03/15/17 20:00 97.5 100 20 138/85 96 I/O 03/15/17 03/15/17 03/15/17 03/16/17 03/16/17 03/16/17 07:00 15:00 23:00 07:00 15:00 23:00 Intake Total 800 ml 480 ml Output Total 1000 ml 425 ml 325 ml 250 ml 450 ml Balance -200 ml -425 ml -325 ml -250 ml 30 ml Intake Oral 800 ml 480 ml Output Urine Total 1000 ml 425 ml 325 ml 250 ml 450 ml # Bowel Movements 1 1 0 1 Result Diagram: 03/12/17 0722 03/12/17 0722 Objective Remarks GENERAL: MBMN AA male, NAD SKIN: Warm and dry. HEAD: Normocephalic. EYES: No scleral icterus. No injection or drainage. NECK: Supple, trachea midline. No JVD or lymphadenopathy. CARDIOVASCULAR: Regular rate and rhythm without murmurs, gallops, or rubs. RESPIRATORY: Breath sounds equal bilaterally. No accessory muscle use. GASTROINTESTINAL: Abdomen soft, non-tender, nondistended. MUSCULOSKELETAL: No cyanosis, or edema. BACK: Nontender without obvious deformity. No CVA tenderness. A/P Assessment and Plan Pleural effusion, s/p TC Pl fluid is exudative Rt rib destruction, r/o Malig HIV COPD CHF HTN PLAN: Cont Abx Wean off 02 DW Pt DW pt path results Clinically stable. Oncology evaluating for chemo. Sunday Landry MD Mar 16, 2017 18:30
[2017-03-16] MEDS ORDERED: IOHEXOL 350 MG/ML 10 ML VIAL (for RAD DIAG) IV ONE (19:08)
--- NOTE | 2017-03-16 19:31 | RADRPT ---
EXAM DATE/TIME: 03/16/2017 19:04 [facility] COMPARISON: CT ABDOMEN & PELVIS W CONTRAST, March 04, 2015, 10:27. INDICATIONS : Diffuse abdomen pain. IV CONTRAST: 98 cc Omnipaque 350 (iohexol) IV ORAL CONTRAST: No oral contrast ingested. RADIATION DOSE: 15.47 CTDIvol (mGy) MEDICAL HISTORY : Hypertension. Cardiovascular disease Chronic obstructive pulmonary disease. Diabetes, HIV SURGICAL HISTORY : None. ENCOUNTER: Initial ACUITY: 3 days PAIN SCALE: 3/10 LOCATION: Bilateral lower quadrant TECHNIQUE: Volumetric scanning of the abdomen and pelvis was performed. Using automated exposure control and ad justment of the mA and/or kV according to patient size, radiation dose was kept as low as reasonably achievable to obtain optimal diagnostic quality images. FINDINGS: LOWER LUNGS: There is a complex partially loculated appearing right pleural effusion with areas of nodular pleural thickening. There is apparent pleural based mass as seen on axial image #28 measuring up to 1.2 cm i n diameter. There is consolidation in the right lower lobe. There is an expansile destructive appeari ng lesion involving the right lower lateral ribs best seen on image #1 and 2. LIVER: Homogeneous density without lesion. There is no dilation of the biliary tree. No calcified gallston es. SPLEEN: Normal size without lesion. PANCREAS: Within normal limits. KIDNEYS: Normal in size and shape. There is no mass, stone or hydronephrosis. ADRENAL GLANDS: Within normal limits. VASCULAR: There is no aortic aneurysm. BOWEL/MESENTERY: Scattered diverticuli are noted throughout the colon. There is no free air or fluid. No oral contrast was given limiting the sensitivity. ABDOMINAL WALL: Within normal limits. RETROPERITONEUM: There is no lymphadenopathy. BLADDER: No wall thickening or mass. REPRODUCTIVE: Within normal limits. INGUINAL: There is no lymphadenopathy or hernia. MUSCULOSKELETAL: Expansile destructive lesion involving one of the right lower lateral ribs. There are multiple subtle lytic lesions involving the L1 vertebral body. CONCLUSION: 1. Complex right pleural effusion with pleural thickening and nodularity concerning for metastatic di sease. There is consolidation in the right lower lobe. 2. Multiple lytic lesion involving one of the right lower lateral ribs as well as the L1 vertebral guille dy. This most consistent with metastatic disease. 3. Moderate diverticulosis. Yemi Virk MD on March 16, 2017 at 19:20 Board Certified Radiologist. This report was verified electronically.
[2017-03-16] MEDS: PRAVASTATIN SOD 20 MG TAB PO SCH (20:30)
[2017-03-17] VITALS (7 sets, daily range): BP systolic 125–165; BP diastolic 80–90; PULSE 72–118; RESP 20; TEMP 96.5–98.4; O2SAT 92–97
[2017-03-17] MEDS: CEFEPIME INJ 2,000 MG in SODIUM CHLORIDE 0.9% INJ 100 ML IV SCH (06:02)
[2017-03-17] MEDS: INSULIN NovoLIN REGULAR SUPPLEMENTAL SCALE SQ SCH ×2 (06:02→11:00)
[2017-03-17] MEDS: metroNIDAZOLE 500 MG TAB PO SCH (06:02)
[2017-03-17] MEDS ORDERED: ceFAZolin 2 GM PREMIX 50 ML IV SCH (07:45)
[2017-03-17] MEDS: SODIUM CHLORIDE 0.9% FLUSH 10 ML FLUSH IV FLUSH SCH (09:00)
[2017-03-17] MEDS ORDERED: LIDOCAINE 1%/EPINEPHrine 1:100,000 SOLN 30 ML VIAL ONE (09:15)
[2017-03-17] MEDS ORDERED: fentaNYL CITRATE 250 MCG/5 ML AMP ONE (09:18)
[2017-03-17] MEDS ORDERED: MIDAZOLAM HCL 5 MG/5 ML VIAL ONE (09:18)
[2017-03-17] MEDS: ENOXAPARIN SODIUM 40 MG/0.4 ML SYRINGE SQ SCH (10:00)
--- NOTE | 2017-03-17 10:31 | PD.RAD ---
Post Procedure Progress Note Pre Procedure Diagnosis: (1) Lung cancer Post Procedure Diagnosis: (1) Lung cancer Procedure Date: Mar 17, 2017 Supervising Radiologist: Gurpreet Gutierrez Proceduralist/Assist: Emelia Saxena, RT(R), Yasmeen Levy RT(R)() Estimated blood loss: < 10 ml Anesthesia: Conscious Sedation Plan of Activity Patient to Unit: Nursing Unit Patient Condition: Good See PACS Report for procedural detail/treatment Gurpreet Gutierrez MD Mar 17, 2017 10:31
--- NOTE | 2017-03-17 11:16 | RADRPT ---
EXAM DATE/TIME: 03/17/2017 09:39 [facility] COMPARISON: No previous studies available for comparison. INDICATIONS : Patient is in need of placement of an Infusaport for chemotherapy treatment of lung cancer. MEDICAL HISTORY : History of HIV, HTN, DM, glaucoma, right pleural effusion, hyperlipidemia, COPD, pneumoia, BPH, pulmo nary HTN. SURGICAL HISTORY : History of bilateral glaucoma surgery, right ankle surgery, chest wall biopsy. ENCOUNTER: Initial ACUITY: 1 month PAIN SCORE: 0/10 FLUORO TIME: 0.22 minutes IMAGE SERIES: 0 SEDATION TIME: 30 minutes ACCESS: Right internal jugular vein SEDATION: 1.) 1.5 mg midazolam (Versed) IV 2.) 75 mcg fentanyl (Sublimaze) IV Prophylactic antibiotics were administered with appropriate pre-procedure timing. Vancomycin within 2 hours of procedure, Ancef (or alternative) within 1 hour of procedure. DEVICE: 1. 8 [place] Bard Power Port PROCEDURE : 1. Continuous pulse oximetry and EKG monitoring. 2. Intravenous conscious sedation. 3. Ultrasound guidance for venous access. 4. Fluoroscopic guided implantable central venous port placement. The patient was placed supine. The neck was prepped in sterile fashion. Full sterile technique was u sed, including cap, mask, sterile gloves and gown, and a large sterile sheet. Hand hygiene and 2% ch lorhexidine Betadine was utilized per protocol for cutaneous antisepsis with appropriate dry time for site. The skin and subcutaneous tissues were infiltrated with local anesthetic solution. Under direct ultrasound guidance, central venous access was accomplished in the targeted vessel. The ultrasound images depicting access guidance were stored and saved to PACS for permanent record. A s ubcutaneous pocket was created using blunt dissection. The port was introduced to the pocket. The c atheter tubing was fed through a subcutaneous tunnel to the venotomy site. The catheter tubing was c ut to a suitable length and then was introduced through a valved Peel-Away sheath and positioned with catheter tubing tip at the cavo-atrial junction level. The pocket incision was closed with subcutic ular Vicryl suture. Steri-Strips were applied. The port was flushed and locked with heparin solutio n per protocol. Sterile dressing was applied to the site. The patient tolerated the procedure well. Conscious sedation was performed with the prescribed dosages and duration as above in the presence of an independent trained radiology nurse to assist in the monitoring of the patient. EKG and oximetry remained stable throughout the procedure. The patient tolerated the procedure well and there were no complications. The patient was sent to post anesthesia recovery in stable condition. CONCLUSION: Uncomplicated ultrasound and fluoroscopic guided implanted central venous port catheter placement as described in detail above. An 8 [place] Power port was placed. Gurpreet Gutierrez MD on March 17, 2017 at 11:14 Board Certified Radiologist. This report was verified electronically.
[2017-03-17] MEDS: valACYclovir HCL 500 MG TAB PO SCH (11:30)
[2017-03-17] MEDS: FUROSEMIDE 20 MG TAB PO SCH (11:31)
[2017-03-17] MEDS: METOPROLOL TARTRATE 25 MG TAB PO SCH (11:31)
[2017-03-17] MEDS: DOCUSATE SODIUM 50 MG/SENNA 8.6 MG TAB PO SCH (11:31)
[2017-03-17] MEDS: TAMSULOSIN HCL 0.4 MG CAP PO SCH (11:31)
[2017-03-17] MEDS: FINASTERIDE 5 MG TAB PO SCH (11:31)
[2017-03-17] MEDS: guaiFENesin E.R. 600 MG TAB PO SCH (11:31)
[2017-03-17] MEDS: predniSONE 20 MG TAB PO SCH (11:31)
[2017-03-17] MEDS: LEVOFLOXACIN 750 MG TAB PO SCH (11:31)
[2017-03-17] MEDS: SPIRONOLACTONE 25 MG TAB PO SCH (11:31)
[2017-03-17] MEDS: traMADol HCL 50 MG TAB PO SCH (11:31)
[2017-03-17] MEDS ORDERED: HYDR-3516 PO (11:38)
[2017-03-17] MEDS ORDERED: PRED10PA PO (11:38)
--- NOTE | 2017-03-17 13:48 | HHI.DS ---
Discharge Summary Admission Date March 05, 2017 at 15:51 Discharge Date: Mar 17, 2017 Admitting Diagnosis pneumonia, sepsis (1) Lung cancer ICD Code: C34.90 Diagnosis: Principal (2) Hypoxia ICD Code: R09.02 Diagnosis: Principal Procedures Thoracentesis Brief History - From Admission This is a pleasant 71 y/o male with Hypertension, Hyperlipidemia, DM II, HIV, COPD, who came to ER brought in by EMS for evaluation after one week history of SOB, [place]. Patient denies fever, chills, cough, palpitations , nausea, vomiting, dysuria, lower extremity edema. He does not use oxygen at home. He states that he was seen by his PCP Dr. German this week and chest x-ray was ordered but he has not yet had it. Seen in Emergency room, he has mild to moderate respiratory insufficiency, he is legally blind, awaiting for CTA he has moderate to severe compromise secondary to Right Pleural Effusion and may need Thoracentesis. stable eating without difficulty. he has Pulmonary Hypertension. no signs of CHF will get also a BNP. PE at Discharge GENERAL: NAD, A&Ox3, oxygen present via nasal cannula SKIN: Warm and dry. HEAD: Normocephalic. EYES: No scleral icterus. No injection or drainage. NECK: Supple, trachea midline. No JVD or lymphadenopathy. CARDIOVASCULAR: Regular rate and rhythm without murmurs, gallops, or rubs. RESPIRATORY: Breath sounds equal bilaterally. No accessory muscle use. GASTROINTESTINAL: Abdomen soft, non-tender, nondistended. MUSCULOSKELETAL: No cyanosis, or edema. Hospital Course Mr. Nath is a 71-year-old male who was admitted secondary to sepsis and pneumonia. He is HIV positive and blind at baseline. He also had a pleural effusion while here. She had thoracentesis performed and cytology performed on the thoracentesis secondary to findings on his original chest x-ray that were suggestive of a neoplastic process overlapping his pneumonia. Cytology was within normal limits. A rib biopsy was obtained and shows evidence of lung cancer. Categorically he stage IV lung cancer. Oncology discussed the option of palliative care with him and the patient at this point in time wants palliative care and chemotherapy. A port was placed today. Patient's respiratory status has not recovered to his previous baseline. He is oxygen dependent at this point and unlikely to improve anytime soon. Home oxygen was arranged. Home health care and home caretakers with family and friends have been arranged. He is completed his antibiotic treatment in the hospital. At this point he is medically stable for discharge on home oxygen. Pt Condition on Discharge: Stable Discharge Disposition: Disch w/ Home Health Serv Discharge Time: > 30 minutes Discharge Instructions DIET: Follow Instructions for: As Tolerated, No Restrictions Activities you can perform: Regular-No Restrictions Follow up Referrals: Infectious Disease - 3-5 Days with Tess German Rrt Oncology - 1 Week with DMITRIY Pulmonology - 1 Week with Sunday Landry MD New Medications: Oxygen (O2) (Oxygen (O2)) Device 2 LITER DUSTIN.CANULA CONTINUOUS Oxygen Concentrator Portable Gaseous 2 L/min via Nasal Canula Continuous For 99 months Prevent Hypoxemia #2 CYLINDER Prednisone (21) 10 mg tab Dose Pack (Prednisone (21) 10 mg tab Dose Pack) 10 Mg Pack 10 MG PO DIRECTED Inflammation #1 Ref 0 DSPK Hydrocodone-Acetaminophen (Hydrocodone-Acetaminophen) 5-325 mg Tab 1 TAB PO Q4H PRN PAIN SCALE 1 TO 5 #15 TAB Continued Medications: Aspirin DR (Ecotrin Low Strength) 81 Mg Tabdr 81 MG PO MOWEFR Take 1 tablet (81mg) daily on Tuesday,Tuesday and Tuesday #30 Ref 0 TAB Calcium Carbonate-Cholecalciferol (Calcium 600+D) 600-800 Mg-Unit Tab 1 TAB PO DAILY TAB Cholecalciferol (Vitamin D3) 50,000 Unit Cap 48035 UNITS PO EVERY OTHER WEEK Nutritional Supplement #1 Ref 0 BOTTLE Fvykootrtjlxl-Fyszpyvkddr-Oegveryfv Alafenam (Odefsey) 200-200-25 Mg Tab 1 TAB PO DAILY Mgmt Viral Infection #30 Ref 0 TAB Finasteride (Finasteride) 5 Mg Tab 5 MG PO DAILY Do not crush. Manage Prostate Problems #30 Ref 0 TAB Furosemide (Furosemide) 20 Mg Tab 20 MG PO DAILY #30 Ref 0 TAB Glipizide-Metformin (Glipizide-Metformin) 2.5-500 Mg Tab 1 TAB PO BID Metoprolol Tartrate (Metoprolol Tartrate) 25 Mg Tab 12.5 MG PO BID #60 Ref 0 TAB Simvastatin (Zocor) 10 Mg Tab 10 MG PO HS Cholesterol Management #30 Ref 0 TAB Spironolactone (Aldactone) 25 Mg Tab 25 MG PO DAILY #30 Ref 0 TAB Tamsulosin (Tamsulosin) 0.4 Mg Cap 0.8 MG PO DAILY Take 30 minutes after the same meal every day Manage Prostate Problems #60 Ref 0 CAP Tramadol (Tramadol) 50 Mg Tab 50 MG PO BID Pain Management Ref 0 TAB Valacyclovir (Valacyclovir) 1 Gm Tab 1 GM PO DAILY Mgmt Viral Infection #60 Ref 0 TAB Narendra Fernandez MD Mar 17, 2017 13:48
== END 2017-03-17 14:20 | disposition home health service (06) | DRG 871 ==
LOC: NEPC 12:44 → NEDA 15:51 → N05B 17:46 → HIMW 21:30 → HIME 03-06 10:25 → N05B 03-07 20:25
PROVIDERS: ADMIT Hospitalist; ATTEND Hospitalist
PROC: 0W9930Z Drainage of Right Pleural Cavity with Drainage Device, Percutaneous Approach (ICD-10-PCS; 2017-03-06)
PROC: 0W9930Z Drainage of Right Pleural Cavity with Drainage Device, Percutaneous Approach (ICD-10-PCS; 2017-03-06)
PROC: 0WB83ZX Excision of Chest Wall, Percutaneous Approach, Diagnostic (ICD-10-PCS; principal; 2017-03-11)
PROC: 0JH60WZ Insertion of Totally Implantable Vascular Access Device into Chest Subcutaneous Tissue and Fascia, Open Approach (ICD-10-PCS; 2017-03-17)
PROC: 02HV33Z Insertion of Infusion Device into Superior Vena Cava, Percutaneous Approach (ICD-10-PCS; 2017-03-17)
DX: A41.9 Sepsis, unspecified organism (principal); J18.9 Pneumonia, unspecified organism; J96.01 Acute respiratory failure with hypoxia; J90 Pleural effusion, not elsewhere classified; I11.0 Hypertensive heart disease with heart failure; J96.02 Acute respiratory failure with hypercapnia; I50.22 Chronic systolic (congestive) heart failure; C79.51 Secondary malignant neoplasm of bone; C79.89 Secondary malignant neoplasm of other specified sites; E11.9 Type 2 diabetes mellitus without complications; D50.9 Iron deficiency anemia, unspecified; C34.91 Malignant neoplasm of unspecified part of right bronchus or lung; J44.1 Chronic obstructive pulmonary disease with (acute) exacerbation; J44.0 Chronic obstructive pulmonary disease with (acute) lower respiratory infection; I27.2 Other secondary pulmonary hypertension; Z79.84 Long term (current) use of oral hypoglycemic drugs; Z21 Asymptomatic human immunodeficiency virus [HIV] infection status; E78.5 Hyperlipidemia, unspecified; M19.90 Unspecified osteoarthritis, unspecified site; N40.0 Benign prostatic hyperplasia without lower urinary tract symptoms; H54.8 Legal blindness, as defined in USA; Z87.891 Personal history of nicotine dependence; Z79.82 Long term (current) use of aspirin; H91.90 Unspecified hearing loss, unspecified ear; R63.4 Abnormal weight loss
CPT/HCPCS: 20225; 32551; 36561; 36600; 71010; 71275; 74177; 76937; 77001; 77012; 80048; 80053; 80061; 81001; 82150; 82550; 82805; 82945; 82948; 83036; 83615; 83735; 83880; 83986; 84100; 84157; 84439; 84443; 84484; 85025; 85027; 85379; 85610; 85730; 87015; 87040; 87070; 87086; 87102; 87116; 87176; 87205; 87206; 87449; 87641; 88112; 88305; 88333; 88341; 88342; 89051; 90471; 90686; 93005; 94150; 94620; 94640; 94664; 96361; 96374; 99152; 99153; C1788; G0008; J0456; J0690; J0692; J0696; J1642; J1650; J1940; J2250; J2270; J3010; J7040; J7050; J7512; Q2038; Q9967

== ENCOUNTER 2017-03-24 22:58 | Emergency (ER) | payer MEDICARE, MEDICAID ==
[~2017-03-24 22:58] MED LIST changes: +ASPI-147 PO; -ASPI81 PO; -BRIM0.2S LEFT EYE; +CALC1TAB37 PO; -CALCCHW25 PO; +CHOL1CAP34 PO; +EPINEPHrine HCL (1:10,000) 1 MG/10 ML SYRINGE IV ONE; -ERGO50000 PO; +FINA5TAB2 PO; -FURO10S PO; +FURO20TA PO; +GLIP2.5T2 PO; -GLIP5 PO; +HYDR-3516 PO; -LATA.005%O LEFT EYE; -METF500 PO; -METO25 PO; +METO25TA3 PO; +OXYGENDME NAS.CANULA; +PRED10PA PO; -PROS5TAB2 PO; -REME15TA PO; -SIMV10 PO; +SPIR25 PO; -SPIR25TA PO; -TAMS0.4C4; +TAMS0.4C4 PO; +TRAM50TA PO; +ZOCO10TA PO
--- NOTE | 2017-03-24 23:35 | PD ---
HPI Chief Complaint: cardiac arrest Time Seen by Provider: 23:27 Travel History International Travel<30 days: No Contact w/Intl Traveler<30days: No History of Present Illness HPI This is a 71-year-old male who has a history of HIV, hypertension, COPD and heart failure who presents to the emergency department having had a respiratory arrest. Patient reportedly called EMS to the house for shortness of breath. When they arrived he said he was short of breath. When he was getting onto the stretcher he went unresponsive. They initiated CPR. The patient had pulseless electrical activity throughout their transport. He was administered 2 mg of epinephrine and intubated in the field. PFSH Past Medical History Cancer: No Cardiovascular Problems: Yes (HTN) High Cholesterol: Yes Chest Pain: Yes Diabetes: Yes Diminished Hearing: Yes Glaucoma: Yes Genitourinary: Yes (PROSTATE COMPLAINTS) Hepatitis: No Hiatal Hernia: No Hypertension: Yes Immune Disorder: Yes (HIV) Respiratory: Yes (COPD / ASTHMA) Thyroid Disease: No Past Surgical History Abdominal Surgery: No Cardiac Surgery: No Ear Surgery: No Endocrine Surgery: No Eye Surgery: Yes ([facility].GLAUCOMA SURG.--LAST ONE LT. EYE / 2007) Genitourinary Surgery: No Gynecologic Surgery: No Neurologic Surgery: No Oral Surgery: No Pacemaker: No Thoracic Surgery: No Other Surgery: Yes (9 SCREWS IN RIGHT ANKLE) Social History Alcohol Use: No Tobacco Use: Yes Substance Use: No Allergies-Medications (Allergen,Severity, Reaction): Coded Allergies: No Known Allergies (Verified , 03/05/17) Reported Meds & Prescriptions Reported Meds & Active Scripts Active Prednisone (21) 10 mg tab Dose Pack (Prednisone) 10 Mg Pack 10 Mg PO DIRECTED Hydrocodone-Acetaminophen 5-325 mg Tab 1 Tab PO Q4H PRN Oxygen (O2) Device 2 Liter DUSTIN.CANULA CONTINUOUS Oxygen Concentrator Portable Gaseous 2 L/min via Nasal Canula Continuous For 99 months Reported Finasteride 5 Mg Tab 5 Mg PO DAILY Do not crush. Calcium 600+D (Calcium Carbonate-Cholecalciferol) 600-800 Mg-Unit Tab 1 Tab PO DAILY Tamsulosin (Tamsulosin HCl) 0.4 Mg Cap 0.8 Mg PO DAILY Take 30 minutes after the same meal every day Zocor (Simvastatin) 10 Mg Tab 10 Mg PO HS Metoprolol Tartrate 25 Mg Tab 12.5 Mg PO BID Glipizide-Metformin 2.5-500 Mg Tab 1 Tab PO BID Ecotrin Low Strength (Aspirin) 81 Mg Tabdr 81 Mg PO FR Take 1 tablet (81mg) daily on Tuesday,Tuesday and Tuesday Tramadol (Tramadol HCl) 50 Mg Tab 50 Mg PO BID Vitamin D3 (Cholecalciferol) 50,000 Unit Cap 50,000 Units PO EVERY OTHER WEEK Valacyclovir (Valacyclovir HCl) 1 Gm Tab 1 Gm PO DAILY Aldactone (Spironolactone) 25 Mg Tab 25 Mg PO DAILY Odefsey (Ahdeqjgmiivwj-Sxuffdqkbai-Xbiimbuth Alafenam) 200-200-25 Mg Tab 1 Tab PO DAILY Furosemide 20 Mg Tab 20 Mg PO DAILY Review of Systems ROS Limitations: Unresponsive Physical Exam Narrative GENERAL: Unresponsive SKIN: Focused skin assessment warm and dry. HEAD: Atraumatic. Normocephalic. EYES: Pupils dilated, equal. ENT: Dry mucous membranes. NECK: Trachea midline. CARDIOVASCULAR: Pulseless. No edema. RESPIRATORY: Coarse breath sounds on the right, bilateral breath sounds easily heard. GASTROINTESTINAL: Abdomen protuberant. MUSCULOSKELETAL: No obvious deformities. NEUROLOGICAL: Unresponsive. MDM Medical Decision Making Medical Screen Exam Complete: Yes Emergency Medical Condition: Yes Differential Diagnosis COPD exacerbation, congestive heart failure, myocardial infarction, pulmonary embolism, pneumothorax Narrative Course This is a 71-year-old male who presents to the emergency department in cardiac arrest. He reportedly was short of breath prior to arrival and EMS witnessed him become unresponsive. CPR was immediately initiated and the patient was intubated in the field. They had a good end-tidal CO2 on arrival of 40-50 confirming adequate tube placement. CPR was continued. Bilateral breath sounds were easily heard so I didn't suspect pneumothorax. Blood sugar was normal. Patient continued to have an organized narrow complex tachycardia despite being pulseless. Bedside echo demonstrated a poor ejection fraction and possibly dilated right ventricle. Epinephrine was continued and the patient 's precipitous decline and complained of shortness of breath I elected to administer TPA for possible pulmonary embolism. Patient was given 50 mg IV TPA bolus. We continued CPR. At one point we did regain spontaneous circulation for about 1 minute but that deteriorated. Ultimately patient's and title CO2 declined. I determine that further resuscitation was futile. On subsequent review of the chart the patient evidently was recently diagnosed with stage IV lung cancer. This likely contributed to the patient's . Critical Care Narrative Aggregate critical care time was 35 minutes. Time to perform other separately billable procedures was not included in the critical care time. My time did not include minutes spent treating any other patients simultaneously or on activities that did not directly contribute to the patient's treatment. The services I provided to this patient were to treat and/or prevent clinically significant deterioration that could result in: Disability, I provided critical care services requiring my management, as noted below: Chart data review, documentation time, medication orders and management, vital sign assessments/reviewing monitor data, ordering and reviewing lab tests, ordering and interpreting/reviewing x-rays and diagnostic studies, care of the patient and discussion of the patient with the admitting physicians. Diagnosis Primary Impression: Respiratory arrest Additional Impression: Lung cancer Qualified Code: C34.90 - Malignant neoplasm of lung, unspecified laterality, unspecified part of lung Disposition: 20 Condition: Alka Molina MD Mar 24, 2017 23:35
[2017-03-25] MEDS ORDERED: ONDANSETRON HCL 4 MG/2 ML VIAL ONE (00:05)
== END 2017-03-25 00:20 | disposition expired ==
LOC: NEPI 22:58
DX: R09.2 Respiratory arrest (principal); C34.90 Malignant neoplasm of unspecified part of unspecified bronchus or lung; I10 Essential (primary) hypertension; E78.00 Pure hypercholesterolemia, unspecified; E11.9 Type 2 diabetes mellitus without complications; H91.90 Unspecified hearing loss, unspecified ear; Z21 Asymptomatic human immunodeficiency virus [HIV] infection status; Z72.0 Tobacco use; Z86.69 Personal history of other diseases of the nervous system and sense organs; Z86.79 Personal history of other diseases of the circulatory system; Z87.438 Personal history of other diseases of male genital organs; Z87.09 Personal history of other diseases of the respiratory system
CPT/HCPCS: 92950; 96374; 99291; J0171; J2405